=== PATIENT | female | born 2000 | race Caucasian/White ===

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

== ENCOUNTER 2024-04-06 19:53 | Inpatient (IN) ==
[2024-04-06 20:39] LABS: Appearance Urine Clear (Clear); Bacteria Urine Automated None Seen (None Seen); Bilirubin Urine 3+ (Negative); Blood Urine Negative (Negative); Cast Urine Automated 0-2 /lpf (0-2); Color Urine Dark Yellow; Glucose Urine UA Negative (Negative); Ketones Urine 1+ (Negative); Leukocyte Esterase Urine 1+ (Negative); Nitrite Urine Negative (Negative); Protein Urine Negative (Negative); RBC Urine Automated 0-2 /hpf (0-2); Specific Gravity Urine 1.018 (1.000-1.030); Urobilinogen Urine Negative (Negative); pH Urine 5.5 (4.5-7.5)
[2024-04-06 20:43] LABS: BUN Creatinine Ratio 12.5 (10-20); Calcium 8.7 mg/dl (8.6-10.3); Creatinine Clr Calc Pharmacy 132.8 ml/min; Potassium 3.5 mmol/L (3.5-5.1)
[2024-04-06 20:44] LABS: Basophils # (auto) 0.03 K/uL (0.00-0.20); Basophils % (auto) 0.4 %; Eosinophils # (auto) 0.09 K/uL (0.00-0.50); Eosinophils % (auto) 1.1 %; Hematocrit (blood only) 41.1 % (37.0-47.0); Hemoglobin 14.1 g/dl (12.0-16.0); Immature Granulocytes # (auto) 0.02 K/uL (0.01-0.20); Immature Granulocytes % (auto) 0.2 %; Lymphocytes # (auto) 0.86 K/uL (1.20-3.40); Lymphocytes % (auto) 10.6 %; Mean Corpuscular Hemoglobin 29.3 pg (25.0-34.0); Mean Corpuscular Hgb Conc 34.3 g/dL (32.0-36.0); Mean Corpuscular Volume 85.4 fL (80.0-100.0); Mean Platelet Volume 10.4 fL (9.4-12.4); Monocytes # (auto) 0.66 K/uL (0.11-0.59); Monocytes % (auto) 8.1 %; Neutrophils # (auto) 6.48 K/uL (1.40-6.50); Neutrophils % (auto) 79.6 %; Platelet Count 327 K/uL (130-400); RDW Coefficient of Variation 12.4 % (11.5-14.5); RDW Standard Deviation 38.8 fL (36.4-46.3); Red Blood Count 4.81 M/uL (4.20-5.40); White Blood Count 8.14 K/ul (4.8-10.8)
[2024-04-06 20:51] LABS: Pregnancy Test, Serum Negative (Negative)
[2024-04-06 21:00] LABS: Albumin Globulin Ratio 2.3 (0.9-2); Albumin Level 4.5 gm/dl (3.4-5.0); Total Protein 6.5 gm/dl (6.0-8.3)
[2024-04-06] MEDS ORDERED: HYDROmorphone INJ 0.5 MG/0.5 ML SYR IV PRN (21:39)
--- NOTE | 2024-04-06 21:47 | Emergency Department Note ---
Impression & Plan Acute gallstone pancreatitis, Acute upper abdominal pain, Vomiting, Elevated liver enzymes, Jaundice ED Provider Note NAME: ELA OLSON AGE: 23 SEX: F : 2000 ARRIVES VIA: Walk-In INFORMANT: [Patient][family] ED PROVIDER(S): [John Brown MD] CHIEF COMPLAINT: Abdominal pain HISTORY OF PRESENT ILLNESS: The patient is a 23-year-old female whose had about a week of upper abdominal pain, nausea. She has actually passed out a few times. She feels dehydrated. There has been no fever. No cough or respiratory complaints. The patient went to the [place] ED yesterday. She was told that her flu test was negative, her lab work was okay and the CT of the abdomen pelvis was unremarkable. The patient presents to our ER today complaining of continued symptoms. She states her urine is very dark in color. Of note, the patient has had a previous cholecystectomy. Some of her symptoms today feel similar to when she still had her gallbladder PMHx/PSHx/Social Hx: See Below PHYSICAL EXAM: GENERAL: Patient is in mild distress from pain, tearful HEENT: No acute trauma, normocephalic atraumatic, mucous membranes moist, no nasal congestion. Scleral icterus seen NECK: No stridor, no adenopathy, no meningismus, trachea is midline. LUNGS: Clear to auscultation bilaterally, no wheeze, no rhonchi, breath sounds equal. HEART: Without murmurs gallops or rubs, regular rate and rhythm. ABDOMEN: Soft, moderately tender in the epigastrium, no distention EXTREMITIES: No cyanosis, full range of motion of all the joints without pain or difficulty. NEUROLOGIC: Oriented x 3, no acute motor or sensory deficits, no focal weakness. SKIN: No jaundice, no diaphoresis. DIFFERENTIAL DIAGNOSIS: Biliary colic, pancreatitis, gastritis, bowel obstruction, UTI, viral illness, among others. EMERGENCY DEPARTMENT PROCEDURES: MEDICAL DECISION MAKING: There is no leukocytosis or concerning anemia. There is a normal platelet count. No renal failure or significant electrolyte abnormality. Liver enzymes were markedly elevated, the bilirubin was 5. Lipase was elevated at 6700. Urinalysis showed potential contamination, no obvious infection. Gallbladder ultrasound showed a dilated common bile duct. On exam, the patient was jaundiced and quite tender in the epigastrium. The patient was given IV Dilaudid for pain, IV Zofran for nausea, she received IV saline for hydration. She was given IV Zosyn as antibiotic coverage. She received IV Pepcid and IV Benadryl. The patient appears to have gallstone pancreatitis. She is jaundiced. She has markedly elevated liver enzymes. I did speak with the on-call GI physician. The patient is to be hospitalized on the medicine service to potentially undergo ERCP in the morning. Patient feels better with treatment provided in the ED. I spoke with her about her findings. I did speak with case management, the on-call hospitalist was consulted. Prior/Outside records/notes reviewed: None Imaging/x-ray results per my interpretation: Chronic Medical/Social conditions affecting care: None Care/Management discussed with: GI on-call-Dr. Estrada. Case management and the on-call hospitalist. Level of care consideration(s): After review of the information above and other included data: --I believe the patient requires escalation of care to admission DISPOSITION: Admission Past Med/Surg History Problem List (Updated 04/07/24 @ 14:21 by John Brown MD) Jaundice (Acute) Elevated liver enzymes (Acute) Vomiting (Acute) Acute upper abdominal pain (Acute) Acute gallstone pancreatitis (Acute) Pancreatitis Transaminitis Gall stone pancreatitis Multiple sclerosis Left ovarian cyst (Acute) Medical History (Updated 04/07/24 @ 14:21 by John Brown MD) Migraine Multiple sclerosis Surgical History [place] teeth extracted Family History Other Cancer Diabetes Heart disease Hypertension Seizure Social History Smoking Status: Never smoker Hx Alcohol Use: Yes Alcohol type: hard liquor Hx Substance Use: Yes Last Used Substance: Days (ago) Substance Use Type Other:: medical marijuana user Preferred Language: Citizen Of [place] Communication Ability: Effective Machine Hose Cutter Required: No Beliefs That Will Affect Care: None marital status: Single Current Living Situation: Alone current occupational status: employed Other Information That Helps Us Care for You: No Feels Safe at Home: Yes Safety Concerns: Feels Safe At This Time Assistive Devices: Glasses Allergies Allergies Allergy/AdvReac Type Severity Reaction Status Date / Time No Known Allergies Allergy Verified 04/08/18 17:23 Home Meds Home Medications Medication Instructions Recorded Confirmed albuterol sulfate 90 mcg/actuation 2 puff inhalation Q4H PRN 04/07/24 04/07/24 aerosol inhaler Shortness Of Breath Or Wheezing ocrelizumab 30 mg/mL intravenous 600 mg IV UD 04/07/24 04/07/24 solution (Ocrevus) pantoprazole 40 mg tablet,delayed 40 mg PO DAILY 04/07/24 04/07/24 release rizatriptan 10 mg disintegrating 10 mg PO DIRECTED 04/07/24 04/07/24 tablet semaglutide 0.25 mg or 0.5 mg (2 0.5 mg subcut WK 04/07/24 04/07/24 mg/3 mL) subcutaneous pen injector (Ozempic) Results & Data (ED) Vital Signs Vital Signs - 24 hr 04/06/24 19:59 04/07/24 00:08 Temperature 36.3 C L Temperature Source Temporal Artery Scan Pulse Rate 76 Pulse Rate [Finger] 62 Respiratory Rate 16 16 Respiratory Effort / Characteristics Non-Labored Spontaneous Non-Labored Spontaneous Respiratory Depth Normal Normal Respiratory Pattern Regular Blood Pressure 132/82 Blood Pressure [Right Arm] 128/76 Blood Pressure Mean 98 Blood Pressure Mean [Right Arm] 93 Pulse Oximetry 99 98 Oxygen Delivery Method Room Air Room Air Sepsis Recent Fever Within 48 Hours No Sepsis New/Unexplained Change in Mental Status No Sepsis Action Taken by Nursing No Action Required Home Medications Current Medication List: was personally reviewed by me Laboratory Data Attestation: I reviewed the patient's lab results. 04/07/24 05:34 04/07/24 05:34 Lab Results 04/06/24 Range/Units 20:10 WBC 8.14 (4.8-10.8) K/ul RBC 4.81 (4.20-5.40) M/uL Hgb 14.1 (12.0-16.0) g/dl Hct 41.1 (37.0-47.0) % MCV 85.4 (80.0-100.0) fL MCH 29.3 (25.0-34.0) pg MCHC 34.3 (32.0-36.0) g/dL RDW Std Deviation 38.8 (36.4-46.3) fL RDW Coeff of Sandeep 12.4 (11.5-14.5) % Plt Count 327 (130-400) K/uL MPV 10.4 (9.4-12.4) fL Immature Gran % (Auto) 0.2 % Neut % (Auto) 79.6 % Lymph % (Auto) 10.6 % Grady % (Auto) 8.1 % Eos % (Auto) 1.1 % Baso % (Auto) 0.4 % Neut # (Auto) 6.48 (1.40-6.50) K/uL Lymph # (Auto) 0.86 L (1.20-3.40) K/uL Grady # (Auto) 0.66 H (0.11-0.59) K/uL Eos # (Auto) 0.09 (0.00-0.50) K/uL Baso # (Auto) 0.03 (0.00-0.20) K/uL Immature Gran # (Auto) 0.02 (0.01-0.20) K/uL Sodium 140 (136-145) mmol/L Potassium 3.5 (3.5-5.1) mmol/L Chloride 107 (98-107) mmol/L Carbon Dioxide 28 (21-32) mmol/L Anion Gap 5 (3-11) BUN 10 (6-23) mg/dl Creatinine 0.80 (0.6-1.2) mg/dl Est Cr Clr Drug Dosing 132.8 ml/min eGFR 104.80 BUN/Creatinine Ratio 12.5 (10-20) Glucose 108 H (70-99(Fasting)) mg/dl Calcium 8.7 (8.6-10.3) mg/dl Total Bilirubin 5.0 H (0.2-1.0) mg/dl AST 485 H (13-39) U/L ALT 742 H (7-52) U/L Alkaline Phosphatase 288 H (34-104) U/L Total Protein 6.5 (6.0-8.3) gm/dl Albumin 4.5 (3.4-5.0) gm/dl Globulin 2.0 L (2.5-4.0) gm/dl Albumin/Globulin Ratio 2.3 H (0.9-2) Lipase 6762 H (11-82) U/L HCG, Qual Negative (Negative) Urine Color Dark Yellow Urine Appearance Clear (Clear) Urine pH 5.5 (4.5-7.5) Ur Specific [place] 1.018 (1.000-1.030) Urine Protein Negative (Negative) Urine Glucose (UA) Negative (Negative) Urine Ketones 1+ H (Negative) Urine Blood Negative (Negative) Urine Nitrite Negative (Negative) Urine Bilirubin 3+ H (Negative) Urine Urobilinogen Negative (Negative) Ur Leukocyte Esterase 1+ H (Negative) Urine WBC (Auto) 11-20 H (0-5) /hpf Urine RBC (Auto) 0-2 (0-2) /hpf U Hyaline Cast (Auto) 0-2 (0-2) /lpf U Epithel Cells (Auto) 3-5 H (0-2) /hpf Urine Bacteria (Auto) None Seen (None Seen) Administered Medications Hydromorphone HCl (Hydromorphone Inj 0.5 Mg/0.5 Ml Syr) 0.5 mg IV Q3H PRN PRN Reason: Severe Pain (Scale 7, 8, 9,10) Stop: 04/21/24 02:44 Last Admin: 04/07/24 03:14 Dose: 0.5 mg Documented By: PAMELA Sodium Chloride (Nss) 1,000 mls @ 200 mls/hr IV .Q5H ASHLEY Stop: 04/08/24 02:44 Last Admin: 04/07/24 14:14 Dose: 200 mls/hr Documented By: Infusion: 04/07/24 13:14 Dose: Infused Documented By: Admin: 04/07/24 08:14 Dose: 200 mls/hr Documented By: Infusion: 04/07/24 08:11 Dose: Infused Documented By: Admin: 04/07/24 03:11 Dose: 200 mls/hr Documented By: PAMELA Pantoprazole Sodium (Protonix) 40 mg in 10 mls @ 5 mls/min IV DAILY ASHLEY Stop: 05/07/24 08:59 Last Admin: 04/07/24 08:16 Dose: 5 mls/min Documented By: DELISA Piperacillin Sod/Tazobactam Sod (Zosyn) 4.5 gm in 100 mls @ 25 mls/hr IV Q8H ASHLEY; Protocol Stop: 04/17/24 03:59 Last Admin: 04/07/24 12:40 Dose: 25 mls/hr Documented By: Infusion: 04/07/24 08:14 Dose: Infused Documented By: Admin: 04/07/24 04:09 Dose: 25 mls/hr Documented By: PAMELA Ondansetron HCl (Ondansetron Inj 2 Mg/Ml 2 Ml Vial) 4 mg IV Q6H PRN PRN Reason: Nausea Stop: 05/07/24 02:44 Last Admin: 04/07/24 08:16 Dose: 4 mg Documented By: DELISA Discontinued Medications Diphenhydramine HCl (Diphenhydramine 50 Mg/Ml Vial) 12.5 mg IV NOW STA Stop: 04/06/24 21:40 Last Admin: 04/06/24 22:02 Dose: 12.5 mg Documented By: HECTOR Hydromorphone HCl (Hydromorphone Inj 0.5 Mg/0.5 Ml Syr) 0.5 mg IV NOW STA Stop: 04/06/24 21:40 Last Admin: 04/06/24 22:01 Dose: 0.5 mg Documented By: HECTOR Piperacillin Sod/Tazobactam Sod (Zosyn) 4.5 gm in 100 mls @ 200 mls/hr IV NOW ONE Stop: 04/06/24 22:08 Last Infusion: 04/07/24 00:00 Dose: Infused Documented By: Infusion: 04/06/24 23:30 Dose: 200 mls/hr Documented By: Infusion: 04/06/24 22:08 Dose: 0 mls/hr Documented By: Admin: 04/06/24 21:59 Dose: 200 mls/hr Documented By: HECTOR Famotidine (Pepcid 20mg Iv Push) 20 mg in 5 mls @ 2.5 mls/min IV NOW STA Stop: 04/06/24 21:40 Last Admin: 04/06/24 22:03 Dose: 2.5 mls/min Documented By: HECTOR Sodium Chloride (Nss) 1,000 mls @ 999 mls/hr IV .Q1H1M ONE Stop: 04/06/24 22:39 Last Infusion: 04/07/24 00:09 Dose: Infused Documented By: Admin: 04/06/24 22:00 Dose: 999 mls/hr Documented By: HECTOR Sodium Chloride (Nss) 1,000 mls @ 999 mls/hr IV .Q1H1M ONE Stop: 04/07/24 01:15 Last Infusion: 04/07/24 01:58 Dose: Infused Documented By: Admin: 04/07/24 00:56 Dose: 999 mls/hr Documented By: HECTOR Ondansetron HCl (Ondansetron Inj 2 Mg/Ml 2 Ml Vial) 4 mg IV NOW STA Stop: 04/06/24 21:40 Last Admin: 04/06/24 22:01 Dose: 4 mg Documented By: HECTOR Discharge Plan Visit Data Chief Complaint: Abdominal Pain Stated Complaint: ABD PAIN, VOMITING, ED Provider: John Brown Discharge Problem: Acute gallstone pancreatitis, Acute upper abdominal pain, Vomiting, Elevated liver enzymes, Jaundice Patient Disposition: Admitted As Inpatient Condition: Fair Discharge Instructions Interventions: ED Discharge Assessment Last Done: 04/07/24 02:01 Discharge Problem: Vomiting Qualifiers: Vomiting type: unspecified Nausea presence: with nausea Qualified Code(s): R 11.2 - Nausea with vomiting, unspecified
[2024-04-06] MEDS: PIPERACILLIN/TAZOBACTAM 4.5 GM/100 ML BAG IV ONE (21:59)
[2024-04-06] MEDS: SODIUM CHLORIDE 0.9% 1,000 ML IV ONE (22:00)
[2024-04-06] MEDS: ONDANSETRON INJ 2 MG/ML 2 ML VIAL IV STA (22:01)
[2024-04-06] MEDS: HYDROmorphone INJ 0.5 MG/0.5 ML SYR IV STA (22:01)
[2024-04-06] MEDS: diphenhydrAMINE 50 MG/ML VIAL IV STA (22:02)
[2024-04-06] MEDS: FAMOTIDINE 20MG IV PUSH 20 MG/5 ML SYR IV STA (22:03)
--- NOTE | 2024-04-06 23:53 | Ultrasound Report ---
Exam(s): US GALLBLADDER EXAM: US Abdomen Limited, Gallbladder CLINICAL HISTORY: Reason for exam: ned, jaundiced. TECHNIQUE: Real-time ultrasound of the right upper quadrant with image documentation. COMPARISON: No relevant prior studies available. FINDINGS: Liver: Liver measures 16.4 cm. Gallbladder: Cholecystectomy. Common bile duct: Dilated common bile duct measuring 1.1 cm. Pancreas: Unremarkable as visualized. Right kidney: Unremarkable. Right kidney measures 9.5 cm. No hydronephrosis. Other vasculature: Patent, normally directed portal vein. IMPRESSION: Dilated common bile duct measuring 1.1 cm. This could represent reservoir effect in the setting of cholecystectomy. However, if there is laboratory evidence of biliary obstruction, recommend MRCP. Electronically signed by: Elina Pinto M.D. 04/06/24 23:52 PM
--- OUTSIDE RECORDS SUMMARY | 2024-04-07 00:42 | External Medical Summary | Summary of Care ---
Author Name Unknown Organization [facility] Address [address] [place] [place] [address] Phone [phone] Care Team Providers Care Farm Equipment Mechanic Apprentice Name Role Phone Mary Lovell DO Primary Care Provider Reason for Visit * Reason Onset Date Comments Precert Approved 11/19/2023 Ozempic Encounter Details Date Type Department Care Team (Late st Contact Info) Description 11/19/2023 Telephone Nutrition & Weight Management, [facility] [address] [facility] [place] [address] Na Gutiérrez PA-C Precert Approved (Ozempic) Allergies No known active allergiesdocumented as of this encounter (statuses as of 02/18/2024) Medications MEDICAL INSTRUCTIONSIndic ations:Multiple sclerosis (HCC) Use as directed. Maintain access for on going med therapy may D/C after last dose 1 Each N/A 018 Active Ocrevus 300 MG/10ML Intravenous Solution (Ocrelizumab) Administer 600mg once every 6 months. 20 mL 2 021 Active Rizatriptan Benzoate 10 MG Oral Tablet Disintegrating Take 1 Tablet by mouth as needed for Migraine. May repeat in 2 hours if needed 10 Tablet 023 Active Clindamycin Phosphate 1 % External SolutionIndicatio ns:Folliculitis Apply topically to affected area 2 times a day. To affected area of skin. 60 mL 5 023 Active Continuation of patient use of medical marijuana is approved Use as directed. Active Ondansetron 4 MG Oral Tablet Disintegrating (Zofran) Place 1 Tablet on tongue daily as needed for Nausea. dissolve on tongue. 90 Tablet 3 023 Active Fluticasone Propionate 50 MCG/ACT Nasal Suspension (Flonase)Indicati ons:Sinus pressure Administer 2 Sprays into each nostril in the morning. 16 g 2 024 Active Additional Information Patient not taking.Reported on 01/05/2024 LORazepam 0.5 MG Oral Tablet (Ativan) Take 1 tablet by mouth 30 minutes before MRI. If needed, you can take an additional tablet right before your MRI. Do not drive on this medication. 2 Tablet Active Albuterol Sulfate HFA 108 (90 Base) MCG/ACT Inhalation Aerosol SolutionIndicatio ns:Bronchitis, complicated Inhale 2 Puffs by mouth every 4 hours as needed for Wheezing or Cough. 18 g 3 024 Active Budesonide 0.5 MG/2ML Inhalation Suspension (Pulmicort) As directed in nasal saline rinse twice a day 120 mL 12 024 Active Azelastine HCl 0.1 % Nasal Solution (Astelin) Administer 1 [place] into nostril in the morning and 1 [place] before bedtime. 30 mL 12 024 Active Additional Information Patient not taking.Reported on 01/05/2024 Vitamin D3 125 MCG (5000 UT) Oral Tablet Take 5,000 units (one tablet) by mouth twice daily x 12 weeks, then decrease to 5,000 units (one tablet) once daily thereafter 168 Tablet 024 Active Vitamin D3 50 MCG (2000 UT) Oral Capsule Take 2 Capsules by mouth in the morning. After completing 12 weeks of the 5000 units twice daily. 60 Capsule 5 024 Active Pantoprazole Sodium 40 MG Oral Tablet Delayed Release (Protonix) Take 1 Tablet by mouth in the morning. 30 minutes before the first meal of the day. Do not crush, split or chew the tablet. 90 Tablet 1 024 2023 Discontinued(R efill) Ozempic (0.25 or 0.5 MG/DOSE) 2 MG/3ML Solution Pen-injector (Semaglutide(0.25 or 0.5MG/DOS)) Inject 0.5 mg under the skin once a week. 3 mL 2 11/27/19 11:59 AM EDT 024 2023 Discontinued Hospital, Clinic, or Other Facility Administered Medication Ordered Dose Route Frequency Start Date End Date Status Albuterol Sulfate (Proventil) (2.5 MG/3ML) 0.083% inhalation solution 2.5 mgIndications:Sinus pressure 2.5 mg NEBULIZER ONCE PRN 04/24/2023 04/23/2024 Active documented as of this encounter (statuses as of 02/18/2024) Active Problems Problem Noted Date Diagnosed Date Wheezing 04/08/2023 Chronic frontal sinusitis 04/08/2023 Dermoid cyst of right ovary 04/12/2021 Migraine with aura and witho ut status migrainosus, not intractable 08/03/2018 Obesity, Class II, BMI 35-39.9, isolated (see ac tual BMI) 02/07/2017 Multiple sclerosis, relapsing-remitting 02/08/20 17 Vitamin D deficiency 02/03/2017 documented as of this encounter (statuses as of 02/18/2024) Resolved Problems Problem Noted Date Diagnosed Date Resolved Date Food insecurity 02/26/2021 09/26/2022 Overview: Per [facility] Protocol Sudden visual loss of left eye 01/28/2017 02/07/2017 Obesity, pediatric, BMI 95th to 98th percentile for age 0407/07/2014 02/07/2017 Depression 07/07/2014 02/07/2017 Deliberate self-cutting 07/07/201401/16 documented as of this encounter (statuses as of 02/18/2024) Immunizations Name Administration Dates Next Due DTaP Dipth/Tet/Acell Pertussis (Infanrix), Peds 04/07/2003,09/13/1999 HPV Vaccine, 4-Valent 07/07/2014,07/02/2011,12/16 Hepatitis A, Ped/Adol., 18 y ear and below, 2-Dose 07/07/2014,03/31/2007 Hepatitis B, 20+ yrs 02/03/2019 MMR - Measles/Mumps/Rubella Vaccine 04/07/2003 Meningococcal Conjugate Vacc ine (Menactra/Menveo) 07/10/2015,01/04/2011 Seasonal Influenza Vac., MDV , IM, 0.5 mL (Fluzone) 01/01/2014,01/28/2013,02/24/2012,01/30,01/03/2009 Seasonal Influenza, PF, 6 M & above, IM , (FluLaval or Fluzone) 01/19/2020,02/03/2019,01/05/2018,01/27 Seasonal Influenza, Quadriva lent, No Preserve, IM 01/31/2015 TDAP (age 10 and older)(Boostrix) 07/10/2015 TDAP, Age 7 and older, IM (Adacel) 01/04/2011 Varicella Vaccine (Chicken Pox) 01/04/2011 documented as of this encounter Social History Tobacco Use Types Packs/Day Years Used Date Smoking Tobacco: Never Smokeless Tobacco: Never Alcohol Use Standard Drinks/Week Comments Not Currently 0 (1 standard drink = 0.6 oz pur e alcohol) occasionally PHQ-2 Answer Date Recorded PHQ-2 Score 0 02/03/2019 Hunger Vital Sign Answer Date Recorded Within the past 12 months, y ou worried that your food would run out before you got the money to buy more. Patient declined Within the past 12 months, t he food you bought just didn't last and you didn't have money to get more. Patient declined 07/2022 Childcare Answer Date Recorded Do you feel overwhelmed with taking care of a child, family member or friend? No 09/18/2022 Does your family need help f inding childcare? (Household - for ages 0-17 years) Not on file 09/18/2022 Clothing Answer Date Recorded Have you been unable to get clothing when it was really needed? No 09/18/2022 Is your family able to get c lothes or diapers when needed? (Household - for ages 0-17 years) Not on file 09/18/2022 Personal Safety Answer Date Recorded Do you feel unsafe or have concerns for your saf ety? No 09/18/2022 Do you have concerns for you r family's safety? (Household - for ages 0-17 years) Not on file 09/18/2022 Utilities Answer Date Recorded Do you have trouble paying y our heating, water, or electric bill? No 09/18/2022 Is your family able to pay t he heat, water, or electric bill? (Household - for ages 0-17 years) Not on file 09/18/2022 Does your family have access to good internet? (Household - for ages 0-17 years) Not on file 09/18/2022 Employment Status Answer Date Recorded Are you unemployed or without regular income? No 09/18/2022 Does the household have a re gular source of income? (Household - for ages 0-17 years) Not on file 09/18/2022 Social Connections Answer Date Recorded How often do you feel lonely or isolated from those around you? Sometimes 09/18/2022 Financial Resource Strain Answer Date R ecorded Do you have any trouble payi ng for your medications, or do you think you might in the future? No 09/18/2022 Does your family have troubl e paying for medicine? (Household - for ages 0-17 years) Not on file 09/18/2022 Transportation Needs Answer Date Record ed READ ONLY Do you have troubl e getting a ride to medical visits or work? Never True 09/18/2022 Does your family have a hard time getting a ride to doctors visits? (Household - for ages 0-17 years) Not on file 09/18/2022 Has lack of transportation k ept you from medical appointments, meetings, work, or from getting things needed for daily living? Check all that apply. (Adult - for ages 18 years and over) Not on file 09/18/2022 Do you (or your family) have trouble finding or paying for a ride (transportation)? (Household - for ages 0-17 years) Not on file 09/18/2022 Housing Stability Answer Date Recorded Do you currently live in a s helter or have no steady place to sleep at night? No 09/18/2022 READ ONLY Do you think you a re at risk of becoming homeless? No 09/18/2022 Does your family worry about paying for your home or becoming homeless? (Household - for ages 0-17 years) Not on file 0 09/18/2022 Are you homeless or worried that you might be in the future? (Adult - for ages 18 years and over) Not on file Are you (or your family) lefty eless or worried that you might be in the future? (Household - for ages 0-17 years) Not on file Food Insecurity Answer Date Recorded Do you need food for this week? No 09/18/2022 Are you able to get enough f ood for your family? (Household - for ages 0-17 years) Not on file 09/18/2022 Does your family need food t his week? (Household - for ages 0-17 years) Not on file 09/18/2022 Do you always have enough fo od for your family? 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 - Note: Please see scanned fax from insurance under the Media Tab. Approved/Denied: approved Drug Name and Formulation: Ozempic (0.25 or 0.5 MG/DOSE) 2 MG/3ML Solution Pen- injector (Semaglutide(0.25 or 0.5MG/DOS)) How Prescribed(directions/sig): WEEKLY Qty and Day Supply: 06/11 Did you receive insurance information from outside the chart? No, received insurance information within the chart Valid auth start date: 11/20/2023 Valid auth end date: 05/19/2024 Rx Insurance Info: [facility] [place] Reference #: Sharon Post Medication Mimeographer III [facility] ([facility]) P: [phone] F: [phone] 11/21/23,8:34 AM . Type Date User Summary Attachment Precert 11/20/2023 8:58 AM Sharon Post OSA [facility] Authorization Submission - Note: [facility] Authorization Submission Submission Information: Medication: OZEMPIC 0.25-0.5 MG/DOSE PEN Portal used: [email or web address] Insurance: [facility] Authorization #/Liao: [id number] * Telephone Encounter - Flip Cantu LPN - 11/19/2023 2:48 PM EDT Please Start prior authorization for Ozempic (0.25 or 0.5 MG/DOSE) 2 MG/3ML Solution Pen-injector (Semaglutide(0.25 or 0.5MG/DOS)) Diagnosis Class 1 obesity due to excess calories without serious comorbidity with body mass index (BMI) of 34.0 to 34.9 in adult E66.09, Z68.34 Abnormal Weight Gain R63.5 Patient qualifies for Weight loss medication due to BMI >30 or BMI >27 with obesity related comorbidity BMI Readings from Last 2 Encounters: 10/27/23 32.88 kg/m 09/03/23 34.02 kg/m Wt Readings from Last 2 Encounters: 10/27/23 103 kg (227 lb 1.6 oz) 09/03/23 106.6 kg (235 lb) Na Gutiérrez PA-C documented in this encounter Plan of Treatment Upcoming Encounters Date Type Department Care Team (Late st Contact Info) Description 03/16/2024 2:00 PM EST Telemedicine Otolaryngology [facility] [address] [place] [address] Mariah Mandel MD [address] [place] [address] 04/01/2024 12:40 PM EST Office Visit Nutrition & Weight Management, [facility] [address] [place] [address] Nae Cristina PA-C [address] [place] [address] 04/29/2024 3:00 PM EST Telemedicine Neurology [address] [place] [phone] Quyen Palma PA-C [address] [place] [address] 04/30/2024 9:00 AM EST Laboratory Laboratory [facility] [address] [facility] [place] [phone] [place], Lab [facility] [address] [facility] [place] [address] 05/03/2024 7:00 AM EST Pharmacy Neurology [address] [place] [phone] Brittny, Pharmacist Neurology [address] [place] [address] 06/25/2024 9:30 AM EDT Hem/Onc Treatment Hematology/Oncology Treatment, [place] [address] [facility] [address] [place] [address] 06/29/2024 8:30 AM EDT Office Visit Family Medicine [address] [phone] Mary Lovell[address] [place] [address] 12/06/2024 2:20 PM EDT Office Visit Neu[facility] [place] [address] [place] [address] Thelma Villatoro MD [address] [facility] [place] [address] Health Maintenance Due Date Last Done Comments COVID-19 Vaccine (#1) 2003 Pneumococcal Vaccine: Pediat rics (0 to 5 Years) and At-Risk Patients (6 to 64 Years) (1 of 2 - PCV) 2004 Depression Screening 02/04/2020 02/03/2019 Influenza Vaccine (FLU shot) (#1) 2023 01/19/2020, 02/03/2019, 01/05/2018, Additional history exists Pap Smear 05/09/2024 05/09/2021 DTap/Tdap Vaccines (8 - Td o r Tdap) 07/09/2025 07/10/2015, 01/04/2011, 04/07/2003, Additional history exists HPV (Gardasil) Vaccine Completed 5, 07/02/2011, 01/04/2011 MENINGOCOCCAL (MENACTRA/MENVEO) Completed 07/10/2015, 01/04/2011, 01/04/2011 Hepatitis B Vaccine Completed 02/03/2019, 03/02/1999, 1998, Additional history exists Gonorrhea / Chlamydia Screen Discontinued 04/12/2021, 01/13/2018 documented as of this encounter Medical Devices Not on filedocumented as of this encounter Advance Directives * Full Code (Latest Code Status on File) Date Activated Date Inactivated Comments 10/13/2020 10:06 AM 10/13/2020 9:06 PM This order reflects the patients wishes and were consensually agreed upon. Question Answer Comments Discussion of Advance Directives occurred with: Not Discussed Care Teams Farm Equipment Mechanic Apprentice Relationship Specialty Start Date End Date Mary Lovell DO [address] [place] [address] [place] [address] PCP - General Internal Medicine 01/28/17 documented as of this encounter
--- OUTSIDE RECORDS SUMMARY | 2024-04-07 00:42 | External Medical Summary | Summary of Care ---
Author Name Unknown Organization [facility] Address [address] [facility] [place] [address] Phone [phone] Care Team Providers Care Pressurization Mechanic Name Role Phone LovellMary tavera Primary Care Provider [phone] Reason for Visit * Reason Comments Dosage Adjustment Via Phone (anticoag Cl inic) Encounter Details Date Type Department Care Team (Late st Contact Info) Description 03/22/2024 3:40 PM EST Telemedicine Endocrinology [address] [place] [phone] Brittny, Pharmacist Endocrinology [address] [place] [address] Abnormal weight gain* Allergies No known active allergiesdocumented as of this encounter (statuses as of 03/22/2024) Medications MEDICAL INSTRUCTIONSIndica tions:Multiple sclerosis (HCC) Use as directed. Maintain access for on going med therapy may D/C after last dose 1 Each N/A 10/28/19 18 Active Ocrevus 300 MG/10ML Intravenous Solution (Ocrelizumab) Administer 600mg once every 6 months. 20 mL 2 02/14/20 21 Active Rizatriptan Benzoate 10 MG Oral Tablet Disintegrating Take 1 Tablet by mouth as needed for Migraine. May repeat in 2 hours if needed 10 Tablet 05/13/19 23 Active Clindamycin Phosphate 1 % External SolutionIndication s:Folliculitis Apply topically to affected area 2 times a day. To affected area of skin. 60 mL 5 09/20/19 23 Active Continuation of patient use of medical marijuana is approved Use as directed. Active Ondansetron 4 MG Oral Tablet Disintegrating (Zofran) Place 1 Tablet on tongue daily as needed for Nausea. dissolve on tongue. 90 Tablet 3 03/11/20 23 Active Fluticasone Propionate 50 MCG/ACT Nasal Suspension (Flonase)Indicatio ns:Sinus pressure Administer 2 Sprays into each nostril in the morning. 16 g 2 04/24/19 24 Active Additional Information Patient not taking.Reported on 01/05/2024 LORazepam 0.5 MG Oral Tablet (Ativan) Take 1 tablet by mouth 30 minutes before MRI. If needed, you can take an additional tablet right before your MRI. Do not drive on this medication. 2 Tablet 04/28/19 24 Active Albuterol Sulfate HFA 108 (90 Base) MCG/ACT Inhalation Aerosol SolutionIndication s:Bronchitis, complicated Inhale 2 Puffs by mouth every 4 hours as needed for Wheezing or Cough. 18 g 3 08/05/19 24 Active Budesonide 0.5 MG/2ML Inhalation Suspension (Pulmicort) As directed in nasal saline rinse twice a day 120 mL 12 08/22/19 24 Active Azelastine HCl 0.1 % Nasal Solution (Astelin) Administer 1 [place] into nostril in the morning and 1 [place] before bedtime. 30 mL 12 08/22/19 24 Active Additional Information Patient not taking.Reported on 01/05/2024 Vitamin D3 125 MCG (5000 UT) Oral Tablet Take 5,000 units (one tablet) by mouth twice daily x 12 weeks, then decrease to 5,000 units (one tablet) once daily thereafter 168 Tablet 10/31/19 24 Active Vitamin D3 50 MCG (2000 UT) Oral Capsule Take 2 Capsules by mouth in the morning. After completing 12 weeks of the 5000 units twice daily. 60 Capsule 5 10/31/19 24 Active dexAMETHasone 0.1 % Ophthalmic Suspension 4 drops in saline rinse twice a day 5 mL 3 11/24/19 24 Active Semaglutide(0.25 or 0.5MG/DOS) 2 MG/3ML Solution Pen-injector ([place]) Inject 0.5 mg under the skin once a week. 9 mL 1 03/22/2024 8:38 AM EST 12/09/19 24 Active Pantoprazole Sodium 40 MG Oral Tablet Delayed Release (Protonix) Take 1 Tablet by mouth in the morning and 1 Tablet in the evening. 30 minutes before the first meal of the day. Do not crush, split or chew the tablet. 180 Tablet 01/14/20 Active Hospital, Clinic, or Other Facility Administered Medication Ordered Dose Route Frequency Start Date End Date Status Albuterol Sulfate (Proventil) (2.5 MG/3ML) 0.083% inhalation solution 2.5 mgIndications:Sinus pressure 2.5 mg NEBULIZER ONCE PRN 04/24/2023 04/23/2024 Active documented as of this encounter (statuses as of 03/22/2024) Active Problems Problem Noted Date Diagnosed Date Wheezing 04/08/2023 Chronic frontal sinusitis 04/08/2023 Dermoid cyst of right ovary 04/12/2021 Migraine with aura and witho ut status migrainosus, not intractable 08/03/2018 Obesity, Class II, BMI 35-39.9, isolated (see ac tual BMI) 02/07/2017 Multiple sclerosis, relapsing-remitting 02/08/20 17 Vitamin D deficiency 02/03/2017 documented as of this encounter (statuses as of 03/22/2024) Resolved Problems Problem Noted Date Diagnosed Date Resolved Date Food insecurity 02/26/2021 09/26/2022 Overview: Per [facility] Protocol Sudden visual loss of left eye 01/28/2017 02/07/2017 Obesity, pediatric, BMI 95th to 98th percentile for age 0407/07/2014 02/07/2017 Depression 07/07/2014 02/07/2017 Deliberate self-cutting 07/07/201401/16 documented as of this encounter (statuses as of 03/22/2024) Immunizations Name Administration Dates Next Due DTaP [...] 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 Patient was then informed that this was a telephone call only visit. The patient agreed to participate Visit Disposition: Status check Duration: 02 minutes Name: Fidel Baumann Diagnosis: Abnormal weight gain Current GLP1 therapy: Ozempic 0.5 mg weekly OBJECTIVE Estimated body mass index is 34.53 kg/m as calculated from the following: Height as of 01/05/24: 1.727 m (5' 8"). Weight as of 10/27/23: 103 kg (227 lb 1.6 oz). BP Readings from Last 3 Encounters: 12/26/23 110/79 10/27/23 98/62 06/27/23 108/71 Hemoglobin AIC Results: Lab Results Component Value Date/Time HEMOGLOBIN A1C, DBS - [facility] 5.1 01/14/2024 02:44 PM No results found for: "MICROALBUMIN" MEDICATION USE ASSESSMENT Patient is adherent to current prescribed dose of GLP1 therapy? Yes, patient taking as prescribed Allergic / Local Reactions Reported: No Side Effects Reported: No side effects, tolerating well PLAN The patient was educated on when to contact provider with change of symptoms or tolerability to medication. Continue medication as prescribed. Carina Terry [facility] Clinical Pharmacist Medication Therapy Disease Management 03/22/2024,3:42 PM documented in this encounter Plan of Treatment Upcoming Encounters Date Type Department Care Team (Late st Contact Info) Description 04/01/2024 12:40 PM EST Office Visit Nutrition & Weight Management, [facility] [place] [address] Nae Cristina PA-C [address] [facility] [place] [address] 04/29/2024 3:00 PM EST Telemedicine Neurology [address] [place] [phone] Quyen Plama PA-C [address] [place] [phone] 04/30/2024 9:00 AM EST Laboratory Laboratory [facility] [address] [place] [phone] [place], [address] [place] [address] 05/03/2024 7:00 AM EST Pharmacy Neurology [address] [place] [phone] Brittny, Pharmacist Neurology [address] [place], [place] [phone] 05/14/2024 11:30 AM EST Telemedicine Otolaryngology [facility] [address] [place] [address] Mariah Mandel MD [address] [place] [address] 06/25/2024 9:30 AM EDT Hem/Onc Treatment Hematology/Oncology Treatment, [place] [address] [place] [phone] 06/29/2024 8:30 AM EDT Office Visit Family Medicine [address] [place] [phone] [address] [place] [address] 12/06/2024 2:20 PM EDT Office Visit [facility] [address] Thelma Villatoro MD [address] [place], [place] [phone] Health Maintenance Due Date Last Done Comments COVID-19 Vaccine (#1) 2003 Pneumococcal Vaccine: Pediat rics (0 to 5 Years) and At-Risk Patients (6 to 18 Years and 19+ Years) (1 of 2 - PCV) 2017 Depression Screening 02/04/2020 02/03/2019 Influenza Vaccine (FLU [...] Not on filedocumented as of this encounter Visit Diagnoses Diagnosis Abnormal weight gain- Primary documented in this encounter Advance Directives * Full Code (Latest Code Status on File) Date Activated Date Inactivated Comments 10/13/2020 10:06 AM 10/13/2020 9:06 PM This order reflects the patients wishes and were consensually agreed upon. Question Answer Comments Discussion of Advance Directives occurred with: Not Discussed Care Teams Pressurization Mechanic Relationship Specialty Start Date End Date Mary Lovell DO [address] [place] [address] [place] [phone] PCP - General Internal Medicine 01/28/17 documented as of this encounter
--- OUTSIDE RECORDS SUMMARY | 2024-04-07 00:42 | External Medical Summary | Summary of Care ---
Author Name Unknown Organization [facility] Address [address] [place] [address] Phone [phone] Care Team Providers Care [employer] Liaison Officer Name Role Phone Mary Lovell DO Primary Care Provider Encounter Details Date Type Department Care Team (Late st Contact Info) Description 04/02/2024 Orders Only Family Medicine [address] [place] [phone] [address] Lovell [address] [place] [address] Allergies No known active allergiesdocumented as of this encounter (statuses as of 04/02/2024) Medications MEDICAL INSTRUCTIONSIndica tions:Multiple sclerosis (HCC) Use [...] 0.1 % Nasal Solution (Astelin) Administer 1 [place] into nostril in the morning and 1 [place] before bedtime. 30 mL 12 08/22/19 24 [...] day 5 mL 3 11/24/19 24 Active Pantoprazole Sodium 40 MG Oral Tablet Delayed Release (Protonix) Take 1 Tablet by mouth in the morning and 1 Tablet in the evening. 30 minutes before the first meal of the day. Do not crush, split or chew the tablet. 180 Tablet 01/14/20 24 Active Semaglutide(0.25 or 0.5MG/DOS) 2 MG/3ML Solution Pen-injector (Ozempic) Inject 0.5 mg under the skin once a week. 3 mL 03/23/19 Active Hospital, Clinic, or Other Facility Administered Medication Ordered Dose Route Frequency Start Date End Date Status Albuterol Sulfate (Proventil) (2.5 MG/3ML) 0.083% inhalation solution 2.5 mgIndications:Sinus pressure 2.5 mg NEBULIZER ONCE PRN 04/24/2023 04/23/2024 Active documented as of this encounter (statuses as of 04/02/2024) Active Problems Problem Noted Date Diagnosed Date Wheezing 04/08/2023 Chronic frontal sinusitis 04/08/2023 Dermoid cyst of right ovary 04/12/2021 Migraine with aura and witho ut status migrainosus, not intractable 08/03/2018 Obesity, Class II, BMI 35-39.9, isolated (see ac tual BMI) 02/07/2017 Multiple sclerosis, relapsing-remitting 02/08/20 Vitamin D deficiency 02/03/2017 documented as of this encounter (statuses as of 04/02/2024) Resolved Problems Problem Noted Date Diagnosed Date Resolved Date Food insecurity 02/26/2021 09/26/2022 Overview: Per [facility] Protocol Sudden visual loss of left eye 01/28/2017 02/07/2017 Obesity, pediatric, BMI 95th to 98th percentile for age 0407/07/2014 02/07/2017 Depression 07/07/2014 02/07/2017 Deliberate self-cutting 07/07/201401/16 documented as of this encounter (statuses as of 04/02/2024) Immunizations Name Administration Dates Next Due DTaP [...] 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 file Not on file documented as of this encounter Plan of Treatment Upcoming Encounters Date Type Department Care Team (Late st Contact Info) Description 04/27/2024 1:00 PM EST Telemedicine Neurology [address] [place] [phone] Quyen Palma PA-C [address] [place] [phone] 04/30/2024 9:00 AM EST Laboratory Laboratory Scenery [place] [place] [address] [place] [phone] [facility] [address] [place] [address] 05/03/2024 7:00 AM EST Pharmacy Neurology [address] [place] [phone] Brittny, Pharmacist Neurology [address] [place] [address] 05/14/2024 11:30 AM EST Telemedicine Otolaryngology [facility] [address] [place] [address] Mariah Mandel MD [address] [place] [address] 06/25/2024 9:30 AM EDT Hem/Onc Treatment Hematology/Oncology Treatment, [place] 200 [place] [phone] 06/29/2024 8:30 AM EDT Office Visit Family Medicine [address] [phone] [address] [place] [address] 12/06/2024 2:20 PM EDT Office Visit Neurology [facility] 200 [place] [address] [facility] [address] [place], [place] [phone] Pending Results Name Type Priority Associated Diagnoses Date /Time PAP SMEAR, OUTSIDE PROCEDURE Lab Routine 03/29/2024 Health Maintenance Due Date Last Done Comments COVID-19 Vaccine (#1) 2003 Pneumococcal Vaccine: Pediat rics (0 to 5 Years) and At-Risk Patients (6 to 18 Years and 19+ Years) (1 of 2 - PCV) 2017 Depression Screening 02/04/2020 02/03/2019 Influenza Vaccine (FLU shot) (#1) 2023 01/19/2020, 02/03/2019, 01/05/2018, Additional history exists DTap/Tdap Vaccines (8 - Td o r Tdap) 07/09/2025 07/10/2015, 01/04/2011, 04/07/2003, Additional history exists Pap Smear 03/29/2027 05/09/2021 HPV (Gardasil) Vaccine Completed 5, 07/02/2011, 01/04/2011 [...] Directives occurred with: Not Discussed Care Teams [employer] Liaison Officer Relationship Specialty Start Date End Date Mary Lovell DO [address] [place] [address] [place] [address] PCP - General Internal Medicine 01/28/17 documented as of this encounter
--- OUTSIDE RECORDS SUMMARY | 2024-04-07 00:42 | External Medical Summary | Summary of Care ---
Author Name Unknown Organization [facility] Address [address] [place] [address] Phone [phone] Care Team Providers Care Emr Trainer Name Role Phone Mary Lovell Primary Care Provider Encounter Details Date Type Department Care Team (Late st Contact Info) Description 03/29/2024 Result Scan Unspecified Department <No scans attached> Allergies No known active allergiesdocumented as of this encounter (statuses as of 04/01/2024) Medications MEDICAL INSTRUCTIONSIndica tions:Multiple sclerosis (HCC) Use [...] 0.1 % Nasal Solution (Astelin) Administer 1 [place] into nostril in the morning and 1 [place] before bedtime. 30 mL 12 08/22/19 24 [...] skin once a week. 3 mL 03/23/19 25 Active Hospital, Clinic, or Other Facility Administered Medication Ordered Dose Route Frequency Start Date End Date Status Albuterol Sulfate (Proventil) (2.5 MG/3ML) 0.083% inhalation solution 2.5 mgIndications:Sinus pressure 2.5 mg NEBULIZER ONCE PRN 04/24/2023 04/23/2024 Active documented as of this encounter (statuses as of 04/01/2024) Active Problems Problem Noted Date Diagnosed Date Wheezing 04/08/2023 Chronic frontal sinusitis 04/08/2023 Dermoid cyst of right ovary 04/12/2021 Migraine with aura and witho ut status migrainosus, not intractable 08/03/2018 Obesity, Class II, BMI 35-39.9, isolated (see ac tual BMI) 02/07/2017 Multiple sclerosis, relapsing-remitting 02/08/20 17 Vitamin D deficiency 02/03/2017 documented as of this encounter (statuses as of 04/01/2024) Resolved Problems Problem Noted Date Diagnosed Date Resolved Date Food insecurity 02/26/2021 09/26/2022 Overview: Per [facility] Protocol Sudden visual loss of left eye 01/28/2017 02/07/2017 Obesity, pediatric, BMI 95th to 98th percentile for age 0407/07/2014 02/07/2017 Depression 07/07/2014 02/07/2017 Deliberate self-cutting 07/07/201401/16 documented as of this encounter (statuses as of 04/01/2024) Immunizations Name Administration Dates Next Due DTaP [...] 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 Not on file documented as of this encounter Plan of Treatment Upcoming Encounters Date Type Department Care Team (Late st Contact Info) Description 04/01/2024 1:00 PM EST PulmDiagnostic Sleep Lab [facility] [address] [address] [facility] [address] [place] [address] 04/27/2024 1:00 PM EST Telemedicine Neurology [address] [place] [phone] Quyen Palma PA-C [address] [place] [address] 04/30/2024 9:00 AM EST Laboratory Laboratory Scenery [place] [address] [place] [phone] [place], Lab Scenery [address] [place] [address] 05/03/2024 7:00 AM EST Pharmacy Neurology [address] [place] [phone] Brittny Pharmacist Neurology [address] [place] [address] 05/14/2024 11:30 AM EST Telemedicine Otolaryngology [facility] [address] [place] [address] Mariah Mandel MD [address] [place] [address] 06/25/2024 9:30 AM EDT Hem/Onc Treatment Hematology/Oncology Treatment, [place] 200 [place] [place] [phone] 06/29/2024 8:30 AM EDT Office Visit Family Medicine [address] [phone] [address] [place] [address] 12/06/2024 2:20 PM EDT Office Visit Neurology [facility] [address] [facility] [address] [place] [address] Health Maintenance Due Date Last Done [...] Not on filedocumented as of this encounter Procedures Procedure Name Priority Date/Time Associated Diagnosis Comments OUTSIDE LAB RESULTS 03/29/2024 documented in this encounter Results * OUTSIDE LAB RESULTS (03/29/2024) 03/29/2024 us No Physician Data Unknown LABORATORY Final Result documented in this encounter Advance Directives * Full Code (Latest Code Status on File) Date Activated Date Inactivated Comments 10/13/2020 10:06 AM 10/13/2020 9:06 PM This order reflects the patients wishes and were consensually agreed upon. Question Answer Comments Discussion of Advance Directives occurred with: Not Discussed Care Teams Emr Trainer Relationship Specialty Start Date End Date Mary Lovell DO [address] [place] [address] [place] [phone] PCP - General Internal Medicine 01/28/17 documented as of this encounter
--- OUTSIDE RECORDS SUMMARY | 2024-04-07 00:42 | External Medical Summary | Summary of Care ---
Author Name Unknown Organization [facility] Address [address] [facility] [address] Phone [phone] Care Team Providers Care Picker Tender Name Role Phone Mary Lovell Primary Care Provider [phone] Reason for Visit * Reason Onset Date Comments Medication Refill 03/22/2024 Encounter Details Date Type Department Care Team (Late st Contact Info) Description 03/22/2024 Refill Endocrinology Eric Gallegos, [place] [address] [place] [address] Na Gutiérrez PA-C Allergies No known active allergiesdocumented as of this encounter (statuses as of 03/23/2024) Medications MEDICAL INSTRUCTIONSIndica tions:Multiple sclerosis (HCC) Use [...] 0.1 % Nasal Solution (Astelin) Administer 1 [place] into nostril in the morning and 1 [place] before bedtime. 30 mL 12 08/22/19 24 [...] a week. 3 mL 03/23/19 25 Active Semaglutide(0.25 or 0.5MG/DOS) 2 MG/3ML Solution Pen-injector (Ozempic) Inject 0.5 mg under the skin once a week. 9 mL 1 5 8:38 AM EST 12/09/19 24 025 Discontin ued(Refil l) Hospital, Clinic, or Other Facility Administered Medication Ordered Dose Route Frequency Start Date End Date Status Albuterol Sulfate (Proventil) (2.5 MG/3ML) 0.083% inhalation solution 2.5 mgIndications:Sinus pressure 2.5 mg NEBULIZER ONCE PRN 04/24/2023 04/23/2024 Active documented as of this encounter (statuses as of 03/23/2024) Active Problems Problem Noted Date Diagnosed Date Wheezing 04/08/2023 Chronic frontal sinusitis 04/08/2023 Dermoid cyst of right ovary 04/12/2021 Migraine with aura and witho ut status migrainosus, not intractable 08/03/2018 Obesity, Class II, BMI 35-39.9, isolated (see ac tual BMI) 02/07/2017 Multiple sclerosis, relapsing-remitting 02/08/20 17 Vitamin D deficiency 02/03/2017 documented as of this encounter (statuses as of 03/23/2024) Resolved Problems Problem Noted Date Diagnosed Date Resolved Date Food insecurity 02/26/2021 09/26/2022 Overview: Per [facility] Protocol Sudden visual loss of left eye 01/28/2017 02/07/2017 Obesity, pediatric, BMI 95th to 98th percentile for age 0407/07/2014 02/07/2017 Depression 07/07/2014 02/07/2017 Deliberate self-cutting 07/07/201401/16 documented as of this encounter (statuses as of 03/23/2024) Immunizations Name Administration Dates Next Due DTaP [...] 09/18/2022 Does the household have a re lar source of income? 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 Authorizing Provider: NAE CRISTINA * Telephone Encounter - Carina Terry [facility] - 03/22/2024 3:43 PM EST Patient previously established with Na Gutiérrez PA-C. Upcoming visit scheduled with Nae Cristina PA-C Pending script. Please approve if agreeable to continuing therapy. Carina Terry RP, PharmD, BCACP Ambulatory Clinical Pharmacist 03/22/24,3:43 PM documented in this encounter Plan of Treatment Upcoming Encounters Date Type Department Care Team (Late st Contact Info) Description 04/01/2024 12:40 PM EST Office Visit Nutrition & Weight Management, [facility] [address] [facility] [place] [address] Nae Cristina PA-C [address] [facility] [place] [address] 04/29/2024 3:00 PM EST Telemedicine Neurology [address] [place] [phone] Quyen Palma PA-C [address] [place] [facility] [phone] 04/30/2024 9:00 AM EST Laboratory Laboratory Scenery [facility] [address] [place] [phone] [place], Lab Scenery [address] [place] [address] 05/03/2024 7:00 AM EST Pharmacy Neurology [address] [place] [phone] Brittny Pharmacist Neurology [address] [facility] [place] [address] 05/14/2024 11:30 AM EST Telemedicine Otolaryngology [facility] [address] [employer] [facility] [place] [address] Mariah Mandel MD [address] [place] [address] 06/25/2024 9:30 AM EDT Hem/Onc Treatment Hematology/Oncology Treatment, [place] 200 [place] [phone] 06/29/2024 8:30 AM EDT Office Visit Family Medicine [address] [phone] Mary Lovell[address] [place] [address] 12/06/2024 2:20 PM EDT Office Visit Neurology [facility] 200 [facility] [address] Thelma Villatoro MD [address] [place] [address] Health Maintenance Due Date Last [...] Directives occurred with: Not Discussed Care Teams Picker Tender Relationship Specialty Start Date End Date Mary Lovell DO [address] [place] [address] [place] [address] PCP - General Internal Medicine 01/28/17 documented as of this encounter
--- OUTSIDE RECORDS SUMMARY | 2024-04-07 00:43 | External Medical Summary | Summary of Care ---
Author Name Unknown Organization [facility] Address [address] [place] [address] Phone [phone] Care Team Providers Care Aerial Photographer Name Role Phone Mary Lovell DO Primary Care Provider [phone] Reason for Visit * Reason Comments Infusion Ocrelizumab * Episode Based Medications (Routine) - Authorized Specialty Diagnoses / Procedures Referred By Eleno anders Referred To Contact Diagnoses Multiple sclerosis, relapsing-remitting (HCC) Procedures [place] INJECTION, OCRELIZUMAB, 1 MG Esc, Thelma Monzon MD [address] [place] [address] Phone: tel: fax: Hematology/Oncology Treatment, [place] DEPT CLOSED - 01/28/23 200 [facility] [place] [address] Phone: tel: fax: Referral ID Status Reason Start Date Expiration Date V isits Requested Visits Authorized [id number] Authorized 12/12/2023 12/11/2024 2 9 Encounter Details Date Type Department Care Team (Latest Contact Info) Description 12/26/2023 9:30 AM EDT Hem/Onc Treatment Hematology/Oncology Treatment, [place] 200 [facility] [place] [address] Multiple sclerosis, relapsing-remitting (HCC)* Allergies No known active allergiesdocumented as of this encounter (statuses as of 01/28/2024) Medications MEDICAL INSTRUCTIONSIndica tions:Multiple sclerosis (HCC) Use [...] morning. 16 g 2 04/24/19 24 Active LORazepam 0.5 MG Oral Tablet (Ativan) Take [...] 0.1 % Nasal Solution (Astelin) Administer 1 [place] into nostril in the morning and 1 [place] before bedtime. 30 mL 12 08/22/19 24 Active Vitamin D3 125 MCG (5000 UT) Oral Tablet Take 5,000 units (one tablet) by mouth twice daily x 12 weeks, then decrease to 5,000 units (one tablet) once daily thereafter 168 Tablet 10/31/19 24 Active Vitamin D3 50 MCG (1999 UT) Oral Capsule Take 2 Capsules by [...] skin once a week. 9 mL 1 4 2:38 PM EDT 12/09/19 24 Active Pantoprazole Sodium 40 MG Oral Tablet Delayed Release (Protonix) Take 1 Tablet by mouth in the morning. 30 minutes before the first meal of the day. Do not crush, split or chew the tablet. 90 Tablet 1 08/06/19 24 024 Discontin ued(Refil l) Hospital, Clinic, or Other Facility Administered Medication Ordered Dose Route Frequency Start Date End Date Status Albuterol Sulfate (Proventil) (2.5 MG/3ML) 0.083% inhalation solution 2.5 mgIndications:Sinus pressure 2.5 mg NEBULIZER ONCE PRN 04/24/2023 04/23/2024 Active documented as of this encounter (statuses as of 01/28/2024) Active Problems Problem Noted Date Diagnosed Date Wheezing 04/08/2023 Chronic frontal sinusitis 04/08/2023 Dermoid cyst of right ovary 04/12/2021 Migraine with aura and witho ut status migrainosus, not intractable 08/03/2018 Obesity, Class II, BMI 35-39.9, isolated (see ac tual BMI) 02/07/2017 Multiple sclerosis, relapsing-remitting 02/08/20 17 Vitamin D deficiency 02/03/2017 documented as of this encounter (statuses as of 01/28/2024) Resolved Problems Problem Noted Date Diagnosed Date Resolved Date Food insecurity 02/26/2021 09/26/2022 Overview: Per [facility] Protocol Sudden visual loss of left eye 01/28/2017 02/07/2017 Obesity, pediatric, BMI 95th to 98th percentile for age 0407/07/2014 02/07/2017 Depression 07/07/2014 02/07/2017 Deliberate self-cutting 07/07/201401/16 documented as of this encounter (statuses as of 01/28/2024) Immunizations Name Administration Dates Next Due DTaP Dipth/Tet/Acell Pertussis (Infanrix), Peds 04/07/2003,09/13/1999,03/02/1999,09/12,1998 HIB PRP-T, 4 Dose, PF, IM (H iberix, ActHib) 1998,1998 HPV Vaccine, 4-Valent 07/07/2014,07/02/2011,12/16 Hepatitis A, Ped/Adol., 18 y ear and below, 2-Dose 07/07/2014,03/31/2007 Hepatitis B, 0-19 yrs 03/02/1999,1998,04/18 Hepatitis B, 20+ yrs 02/03/2019 IPV - Polio Virus Vaccine (Inact) 09/10/1999,,1998 MMR - Measles/Mumps/Rubella Vaccine 04/07/2003,0 09/10/1999 Meningococcal Conjugate Vacc ine (Menactra/Menveo) 07/10/2015,01/04/2011 Pneumococcal Conjugate Vacci ne, 7 Valent 03/25/2000 Seasonal Influenza Vac., MDV , IM, 0.5 mL (Fluzone) 01/01/2014,01/28/2013,02/24/2012,01/30,01/03/2009 Seasonal Influenza, PF, 6 M & above, IM , (FluLaval or Fluzone) 01/19/2020,02/03/2019,01/05/2018,01/27 Seasonal Influenza, Quadriva lent, No Preserve, IM 01/31/2015 TDAP (age 10 and older)(Boostrix) 07/10/2015 TDAP, Age 7 and older, IM (Adacel) 01/04/2011 Varicella Vaccine (Chicken Pox) 01/04/2011,09/09 documented as of this encounter Social History [...] 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 Not on file documented as of this encounter Last Filed Vital Signs Vital Sign Reading Time Taken Comments Blood Pressure 110/79 12/26/2023 10:16 AM EDT Pulse 79 12/26/2023 10:16 AM EDT Temperature 36.2 C (97.2 F) 12/26/2023 10:16 AM E DT Respiratory Rate 16 12/26/2023 10:16 AM EDT Oxygen Saturation 98% 12/26/2023 10:16 AM EDT Inhaled Oxygen Concentration - - Weight - - Height - - Body Mass Index - - documented in this encounter Nursing Notes * Aiyana Kaminski RN - 12/26/2023 10:16 AM EDT Patient to chair 1 with father Patient voices no complaints or concerns Safety and Risk for Injury Patient will remain free from injury. Ensure appropriate safety devices are available. Provide and maintain safe environment. Patient instructed on use of heat and massage functions where applicable. Patient shown how to operate the heat function of the chair and to alert nursing staff if the chair feels too warm. Patient instructed on the risk of potential matamoros while using the heat function. Goals: patient will remain free of injury Possible barriers to meeting goals: ambulation with IV pole, increase risk of fall Stability of the patient: Moderately stable - low risk of patient condition declining or worsening Summary regarding today's goals: Met: patient remained free of injury Patient discharged in good condition, tolerated well without any reaction. documented in this encounter Plan of Treatment Upcoming Encounters Date Type Department Care Team (Late st Contact Info) Description 02/06/2024 10:00 AM EST Telemedicine Otolaryngology [facility] [address] [address] Mariah Mandel MD [address] [place] [address] 04/01/2024 12:40 PM EST Office Visit Nutrition & Weight Management, [facility] [address] [place] [address] Nae Cristina PA-C [address] [place] [address] 04/29/2024 3:00 PM EST Telemedicine Neurology [address] [place] [phone] Quyen Palma PA-C [address] [place] [address] 04/30/2024 9:00 AM EST Laboratory Laboratory [facility] 200 [facility] [place] [phone] [place], Lab [address] [facility] [place] [address] 05/03/2024 7:00 AM EST Pharmacy Neurology [address] [place] [phone] Brittny, Pharmacist Neurology [address] [place] [address] 06/25/2024 9:30 AM EDT Hem/Onc Treatment [facility] [place] [facility] [phone] 06/29/2024 8:30 AM EDT Office Visit Family Medicine [address] [place] [phone] Mary Lovell[address] [place] [address] 12/06/2024 2:20 PM EDT Office Visit Neurology [facility] [place] [address] [place] [address] Thelma Villatoro MD [address] [place] [address] Health Maintenance Due Date Last Done Comments [...] as of this encounter Visit Diagnoses Diagnosis Multiple sclerosis, relapsing-remitting (HCC)- Primary Multiple sclerosis documented in this encounter Administered Medications Inactive Administered Medications - up to 3 most recent administrations Medication Order MAR Action Action Date Dose Rate Site Acetaminophen (Tylenol) tab 650 mg 650 mg, Oral, ONCE, On Fri12/26/23 at 1015, For 1 dose, Maximum of 4 grams (4000 mg) per day.Indications:Multiple sclerosis, relapsing-remitting (HCC) Given 12/26/2023 10:05 AM EDT 650 mg diphenhydrAMINE (Benadryl) inj 50 mg 50 mg, IV Push, ONCE, On Fri12/26/23 at 1015, For 1 doseIndications:Multiple sclerosis, relapsing-remitting (HCC) Given 12/26/2023 10:06 AM EDT 50 mg diphenhydrAMINE (Benadryl) inj 50 mg 50 mg, IV Push, ONCE, On Fri12/26/23 at 1100, For 1 dose, PRIOR TO INCREASING RATE TO 120mL/hrIndications:Multip le sclerosis, relapsing-remitting (HCC) Given 12/26/2023 11:43 AM EDT 50 mg Hydrocortisone Sod Suc (PF) (Solu-Cortef) inj 100 mg 100 mg, IV Push, ONCE, On Fri12/26/23 at 1100, For 1 dose, PRIOR TO INCREASING RATE TO 120mL/hrIndications:Multip le sclerosis, relapsing-remitting (HCC) Given 12/26/2023 11:46 AM EDT 100 mg methylPREDNISolone sodium succ (SOLU-Medrol) inj 125 mg 125 mg, IV Push, ONCE, On Fri12/26/23 at 1015, For 1 doseIndications:Multiple sclerosis, relapsing-remitting (HCC) Given 12/26/2023 10:09 AM EDT 125 mg NSS infusion 500 mL, Intravenous, at 50 mL/hr, CONTINUOUS, Starting on Fri12/26/23 at 1100, Until Fri12/26/23 at 1559Indications:Multiple sclerosis, relapsing-remitting (HCC) Start Infusion 12/26/2023 9:58 AM EDT 500 mL 50 mL/hr Ocrelizumab (Ocrevus) 600 mg in NSS 500 mL infusion Intravenous, Administer over 4 Hours, Administer through a 0.22 micron in-line filter Start at a 40 mL/hr Increase by 40 mL/hr every 30 minutes Maximum: 200 mL/hr Duration: 3.5 hours or longer, ONCE, 1 dose, On Fri12/26/23 at 1045, 600 mgIndications:Multiple sclerosis, relapsing-remitting (HCC) Rate Change 12/26/2023 12:53 PM EDT 200 mL/hr Rate Change 12/26/2023 12:21 PM EDT 160 mL/hr Rate Change 12/26/2023 11:49 AM EDT 120 mL/hr documented in this encounter Advance Directives * Full Code (Latest Code Status on File) Date Activated Date Inactivated Comments 10/13/2020 10:06 AM 10/13/2020 9:06 PM This order reflects the patients wishes and were consensually agreed upon. Question Answer Comments Discussion of Advance Directives occurred with: Not Discussed Care Teams Aerial Photographer Relationship Specialty Start Date End Date Mary Lovell DO [address] [place] [address] [place] [address] PCP - General Internal Medicine 01/28/17 documented as of this encounter
--- OUTSIDE RECORDS SUMMARY | 2024-04-07 00:43 | External Medical Summary | Summary of Care ---
Author Name Unknown Organization [facility] Address [address] [place] [address] Phone [phone] Care Team Providers Care Internet Merchant Name Role Phone Mary Lovell DO Primary Care Provider [phone] Reason for Visit * Reason Comments Infusion Ocrelizumab * Episode Based Medications (Routine) - Authorized Specialty Diagnoses / Procedures Referred By Eleno anders Referred To Contact Diagnoses Multiple sclerosis, relapsing-remitting (HCC) Procedures [place] INJECTION, OCRELIZUMAB, 1 MG Esc, Thelma Monzon MD [address] [place] [address] Phone: tel: fax: Hematology/Oncology Treatment, [place] DEPT CLOSED - 01/28/23 200 [place] [address] Phone: tel: fax: Referral ID Status Reason Start Date Expiration Date V isits Requested Visits Authorized [id number] Authorized 12/12/2023 12/11/2024 2 9 Encounter Details Date Type Department Care Team (Latest Contact Info) Description 12/26/2023 9:30 AM EDT Hem/Onc Treatment Hematology/Oncology Treatment, [place] 200 [facility] [place] [phone] Multiple sclerosis, relapsing-remitting (HCC)* Allergies No [...] 0.1 % Nasal Solution (Astelin) Administer 1 [place] into nostril in the morning and 1 [place] before bedtime. 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 Not [...] Description 02/06/2024 10:00 AM EST Telemedicine Otolaryngology [facility] [address] [address] Mariah Mandel MD [address] [place] [address] 04/01/2024 12:40 PM EST Office Visit Nutrition & Weight Management, [facility] [address] [place] [address] Nae Cristina PA-C [address] [place] [address] 04/29/2024 3:00 PM EST Telemedicine Neurology [address] [place] [phone] Quyen Palma PA-C [address] [place] [address] 04/30/2024 9:00 AM EST Laboratory Laboratory [facility] 200 [facility] [place] [phone] [place], Lab [address] [facility] [place] [address] 05/03/2024 7:00 AM EST Pharmacy Neurology [address] [place] [phone] Brittny, Pharmacist Neurology [address] [place] [address] 06/25/2024 9:30 AM EDT Hem/Onc Treatment [facility]ematology[facility] [place] [facility] [phone] 06/29/2024 8:30 AM EDT Office Visit Family Medicine [address] [place] [phone] Mary Lovell[address] [place] [address] 12/06/2024 2:20 PM EDT Office Visit Neurology [facility] [place] [address] [place] [address] Thelma Villatoro MD [address] [place] [address] Health Maintenance Due Date Last Done Comments [...] Directives occurred with: Not Discussed Care Teams Internet Merchant Relationship Specialty Start Date End Date Mary Lovell DO [address] [place] [address] [place] [address] PCP - General Internal Medicine 01/28/17 documented as of this encounter
--- OUTSIDE RECORDS SUMMARY | 2024-04-07 00:43 | External Medical Summary | Summary of Care ---
Author Name Unknown Organization [facility] Address [address] [place] [address] Phone [phone] Care Team Providers Care Float Remover Name Role Phone Mary Lovell DO Primary Care Provider [phone] Reason for Visit * Reason Comments Infusion Ocrelizumab * Episode Based Medications (Routine) - Authorized Specialty Diagnoses / Procedures Referred By Eleno anders Referred To Contact Diagnoses Multiple sclerosis, relapsing-remitting (HCC) Procedures [place] INJECTION, OCRELIZUMAB, 1 MG Esc, Thelma Monzon MD [address] [place] [address] Phone: tel: fax: Hematology/Oncology Treatment, [place] DEPT CLOSED - 01/28/23 200 [place] [address] Phone: tel: fax: Referral ID Status Reason Start Date Expiration Date V isits Requested Visits Authorized [id number] Authorized 12/12/2023 12/11/2024 2 9 Encounter Details Date Type Department Care Team (Latest Contact Info) Description 12/26/2023 9:30 AM EDT Hem/Onc Treatment Hematology/Oncology Treatment, [place] 200 [facility] [place] [phone] Multiple sclerosis, relapsing-remitting (HCC)* Allergies No [...] 0.1 % Nasal Solution (Astelin) Administer 1 [place] into nostril in the morning and 1 [place] before bedtime. 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 Not [...] Description 02/06/2024 10:00 AM EST Telemedicine Otolaryngology [facility] [address] [address] [address] Mariah Mandel MD [address] [address] [address] 04/01/2024 12:40 PM EST Office Visit Nutrition & Weight Management, [facility] [address] [place] [address] Nae Cristina PA-C [address] [place] [address] 04/29/2024 3:00 PM EST Telemedicine Neurology [address] [place] [phone] Quyen Palma PA-C [address] [place] [address] 04/30/2024 9:00 AM EST Laboratory Laboratory [facility] 200 [facility] [place] [phone] [place], Lab [address] [facility] [place] [address] 05/03/2024 7:00 AM EST Pharmacy Neurology [address] [place] [phone] Brittny, Pharmacist Neurology [address] [place] [address] 06/25/2024 9:30 AM EDT Hem/Onc Treatment Hematology[facility], [place] [facility] [phone] 06/29/2024 8:30 AM EDT Office Visit Family Medicine [address] [place] [phone] Mary Lovell[address] [place] [address] 12/06/2024 2:20 PM EDT Office Visit Neurology [facility] [place] [address] [place] [address] Thelma Villatoro MD [address] [place] [address] Health Maintenance Due Date Last Done Comments [...] Directives occurred with: Not Discussed Care Teams Float Remover Relationship Specialty Start Date End Date Mary Lovell DO [address] [place] [address] [place] [address] PCP - General Internal Medicine 01/28/17 documented as of this encounter
--- OUTSIDE RECORDS SUMMARY | 2024-04-07 00:43 | External Medical Summary | Summary of Care ---
Author Name Unknown Organization [facility] Address [address] [place] [address] Phone [phone] Care Team Providers Care Facility Assistant Name Role Phone Mary Lovell DO Primary Care Provider [phone] Reason for Visit * Reason Comments Infusion Ocrelizumab * Episode Based Medications (Routine) - Authorized Specialty Diagnoses / Procedures Referred By Eleno anders Referred To Contact Diagnoses Multiple sclerosis, relapsing-remitting (HCC) Procedures [place] INJECTION, OCRELIZUMAB, 1 MG Esc, Thelma Monzon MD [address] [place] [address] Phone: tel: fax: Hematology/Oncology Treatment, [place] DEPT CLOSED - 01/28/[address] [place] [address] Phone: tel: fax: Referral ID Status Reason Start Date Expiration Date V isits Requested Visits Authorized [id number] Authorized 12/12/2023 12/11/2024 2 9 Encounter Details Date Type Department Care Team (Latest Contact Info) Description 12/26/2023 9:30 AM EDT Hem/Onc Treatment Hematology/Oncology Treatment, [place] 200 [facility] [place] [phone] Multiple sclerosis, relapsing-remitting (HCC)* Allergies No [...] 0.1 % Nasal Solution (Astelin) Administer 1 [place] into nostril in the morning and 1 [place] before bedtime. 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 Not [...] Description 02/06/2024 10:00 AM EST Telemedicine Otolaryngology [facility] [address] [address] Mariah Mandel MD [address] [place] [address] [address] 04/01/2024 12:40 PM EST Office Visit Nutrition & Weight Management, [facility] [address] [place] [address] Nae Cristina PA-C [address] [place] [address] 04/29/2024 3:00 PM EST Telemedicine Neurology [address] [place] [phone] Quyen Palma PA-C [address] [place] [address] 04/30/2024 9:00 AM EST Laboratory Laboratory [facility] 200 [facility] [place] [phone] [place], Lab [address] [facility] [place] [address] 05/03/2024 7:00 AM EST Pharmacy Neurology [address] [place] [phone] Brittny, Pharmacist Neurology [address] [place] [address] 06/25/2024 9:30 AM EDT Hem/Onc Treatment [facility]ematology[facility], [place] [facility] [phone] 06/29/2024 8:30 AM EDT Office Visit Family Medicine [address] [place] [phone] Mary Lovell[address] [place] [address] 12/06/2024 2:20 PM EDT Office Visit Neurology [facility] [place] [address] [place] [address] Thelma Villatoro MD [address] [place] [address] Health Maintenance Due Date Last Done Comments [...] Directives occurred with: Not Discussed Care Teams Facility Assistant Relationship Specialty Start Date End Date Mary Lovell DO [address] [place] [address] [place] [address] PCP - General Internal Medicine 01/28/17 documented as of this encounter
--- OUTSIDE RECORDS SUMMARY | 2024-04-07 00:43 | External Medical Summary | Summary of Care ---
Author Name Unknown Organization [facility] Address [address] [place] [address] Phone [phone] Care Team Providers Care Chief Technical Officer Name Role Phone Mary Lovell DO Primary Care Provider [phone] Reason for Visit * Reason Comments Infusion Ocrelizumab * Episode Based Medications (Routine) - Authorized Specialty Diagnoses / Procedures Referred By Eleno anders Referred To Contact Diagnoses Multiple sclerosis, relapsing-remitting (HCC) Procedures [place] INJECTION, OCRELIZUMAB, 1 MG Esc, Thelma Monzon MD [address] [place] [address] Phone: tel: fax: Hematology/Oncology Treatment, [place] DEPT CLOSED - 01/28/23 200 [place] [address] Phone: tel: fax: Referral ID Status Reason Start Date Expiration Date V isits Requested Visits Authorized [id number] Authorized 12/12/2023 12/11/2024 2 9 Encounter Details Date Type Department Care Team (Latest Contact Info) Description 12/26/2023 9:30 AM EDT Hem/Onc Treatment Hematology/Oncology Treatment, [place] 200 [facility] [place] [phone] Multiple sclerosis, relapsing-remitting (HCC)* Allergies No [...] 0.1 % Nasal Solution (Astelin) Administer 1 [place] into nostril in the morning and 1 [place] before bedtime. 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 Not [...] Description 02/06/2024 10:00 AM EST Telemedicine Otolaryngology [facility] [address] [address] [address] Mariah Mandel MD [address] [place] [address] [address] 04/01/2024 12:40 PM EST Office Visit Nutrition & Weight Management, [facility] [address] [place] [address] Nae Cristina PA-C [address] [place] [address] 04/29/2024 3:00 PM EST Telemedicine Neurology [address] [place] [phone] Quyen Palma PA-C [address] [place] [address] 04/30/2024 9:00 AM EST Laboratory Laboratory [facility] 200 [facility] [place] [phone] [place], Lab [address] [facility] [place] [address] 05/03/2024 7:00 AM EST Pharmacy Neurology [address] [place] [phone] Brittny, Pharmacist Neurology [address] [place] [address] 06/25/2024 9:30 AM EDT Hem/Onc Treatment Hematology/Oncology Treatment, [place] [facility] [phone] 06/29/2024 8:30 AM EDT Office Visit Family Medicine [address] [place] [phone] Mary Lov[address] [place] [address] 12/06/2024 2:20 PM EDT Office Visit Neurology [facility] [place] [address] [place] [address] Thelma Villatoro MD [address] [place] [address] Health Maintenance Due Date Last Done Comments [...] Directives occurred with: Not Discussed Care Teams Chief Technical Officer Relationship Specialty Start Date End Date Mary Lovell DO [address] [place] [address] [place] [address] PCP - General Internal Medicine 01/28/17 documented as of this encounter
--- OUTSIDE RECORDS SUMMARY | 2024-04-07 00:43 | External Medical Summary | Summary of Care ---
Author Name Unknown Organization [facility] Address [address] [place] [address] Phone [phone] Care Team Providers Care Research Specialist Name Role Phone Mary Lovell DO Primary Care Provider [phone] Reason for Visit * Reason Comments NEW PATIENT * Evaluate & Treat - Unlimited Visits (Within 30 days (routine)) - Authorized Specialty Diagnoses / Procedures Referred By Eleno anders Referred To Contact Sleep Medicine / Sleep Disorders Diagnoses Multiple sclerosis, relapsing-remitting (HCC) Quyen Palma PA-C [address] [place] [address] Referral ID Status Reason Start Date Expiration Date Visits Requested Visits Authorized [id number] Authorized Specialty Services Required 04/28/2023 2 2 Encounter Details Date Type Department Care Team (Late st Contact Info) Description 01/06/2024 2:20 PM EDT Telemedicine Sleep Disorders Ctr [facility] [address] [facility] [place] [phone] Jalyn Sommer DO [address] [facility] [place] [address] Sleep apnea, unspecified type*; Restless legs syndrome (RLS); Disorder of iron metabolism, unspecified Allergies No known active allergiesdocumented as of this encounter (statuses as of 01/12/2024) Medications Medication Sig Dispensed Refills Start Date End Date Status MEDICAL INSTRUCTIONSIndicati ons:Multiple sclerosis (HCC) Use as directed. Maintain access for on going med therapy may D/C after last dose 1 Each N/A 10/27/2017 Active Ocrevus 300 MG/10ML Intravenous Solution (Ocrelizumab) Administer 600mg once every 6 months. 20 mL 2 02/13/2021 Active Rizatriptan Benzoate 10 MG Oral Tablet Disintegrating Take 1 Tablet by mouth as needed for Migraine. May repeat in 2 hours if needed 10 Tablet 05/13/2022 Active Clindamycin Phosphate 1 % External SolutionIndications: Folliculitis Apply topically to affected area 2 times a day. To affected area of skin. 60 mL 5 09/19/2022 Active Continuation of patient use of medical marijuana is approved Use as directed. Active Ondansetron 4 MG Oral Tablet Disintegrating (Zofran) Place 1 Tablet on tongue daily as needed for Nausea. dissolve on tongue. 90 Tablet 3 03/11/2023 Active Fluticasone Propionate 50 MCG/ACT Nasal Suspension (Flonase)Indications :Sinus pressure Administer 2 Sprays into each nostril in the morning. 16 g 2 04/24/2023 Active Additional Information Patient not taking.Reported on 01/05/2024 LORazepam 0.5 MG Oral Tablet (Ativan) Take 1 tablet by mouth 30 minutes before MRI. If needed, you can take an additional tablet right before your MRI. Do not drive on this medication. 2 Tablet 04/28/2023 Active Albuterol Sulfate HFA 108 (90 Base) MCG/ACT Inhalation Aerosol SolutionIndications: Bronchitis, complicated Inhale 2 Puffs by mouth every 4 hours as needed for Wheezing or Cough. 18 g 3 08/05/2023 Active Pantoprazole Sodium 40 MG Oral Tablet Delayed Release (Protonix) Take 1 Tablet by mouth in the morning. 30 minutes before the first meal of the day. Do not crush, split or chew the tablet. 90 Tablet 1 08/06/2023 Active Budesonide 0.5 MG/2ML Inhalation Suspension (Pulmicort) As directed in nasal saline rinse twice a day 120 mL 12 08/22/2023 Active Azelastine HCl 0.1 % Nasal Solution (Astelin) Administer 1 Sadler into nostril in the morning and 1 Sadler before bedtime. 30 mL 12 08/22/2023 Active Additional Information Patient not taking.Reported on 01/05/2024 Vitamin D3 125 MCG (5000 UT) Oral Tablet Take 5,000 units (one tablet) by mouth twice daily x 12 weeks, then decrease to 5,000 units (one tablet) once daily thereafter 168 Tablet 10/31/2023 Active Vitamin D3 50 MCG (2000 UT) Oral Capsule Take 2 Capsules by mouth in the morning. After completing 12 weeks of the 5000 units twice daily. 60 Capsule 5 10/31/2023 Active dexAMETHasone 0.1 % Ophthalmic Suspension 4 drops in saline rinse twice a day 5 mL 3 11/24/2023 Active Semaglutide(0.25 or 0.5MG/DOS) 2 MG/3ML Solution Pen-injector (Zep Solar) Inject 0.5 mg under the skin once a week. 9 mL 1 12/09/2023 Active Hospital, Clinic, or Other Facility Administered Medication Ordered Dose Route Frequency Start Date End Date Status Albuterol Sulfate (Proventil) (2.5 MG/3ML) 0.083% inhalation solution 2.5 mgIndications:Sinus pressure 2.5 mg NEBULIZER ONCE PRN 04/24/2023 04/23/2024 Active documented as of this encounter (statuses as of 01/12/2024) Active Problems Problem Noted Date Diagnosed Date Wheezing 04/08/2023 Chronic frontal sinusitis 04/08/2023 Dermoid cyst of right ovary 04/12/2021 Migraine with aura and witho ut status migrainosus, not intractable 08/03/2018 Obesity, Class II, BMI 35-39.9, isolated (see ac tual BMI) 02/07/2017 Multiple sclerosis, relapsing-remitting 02/08/20 17 Vitamin D deficiency 02/03/2017 documented as of this encounter (statuses as of 01/12/2024) Resolved Problems Problem Noted Date Diagnosed Date Resolved Date Food insecurity 02/26/2021 09/26/2022 Overview: Per [facility] Protocol Sudden visual loss of left eye 01/28/2017 02/07/2017 Obesity, pediatric, BMI 95th to 98th percentile for age 0407/07/2014 02/07/2017 Depression 07/07/2014 02/07/2017 Deliberate self-cutting 07/07/201401/16 documented as of this encounter (statuses as of 01/12/2024) Immunizations Name Administration Dates Next Due DTaP [...] y our heating, water, or electric bill? (Adult - for ages 18 years and over) Not on file 09/23/2023 Is your family able to pay t he heat, water, or electric bill? (Household - for ages 0-17 years) Not on file 09/23/2023 Does your family have access to good internet? (Household - for ages 0-17 years) Not on file 09/23/2023 Employment Status Answer Date Recorded Are you unemployed or without regular income? No 09/18/2022 Does the household have a re lar source of income? (Household - for ages 0-17 years) Not on file 09/18/2022 Social Connections Answer Date Recorded How often do you feel lonely or isolated from those around you? (Adult - for ages 18 years and over) Not on file 09/23/2023 Financial Resource Strain Answer Date R ecorded [...] ages 0-17 years) Not on file 09/18/2022 Sex and Gender Information Value Date Recorded Sex Assigned at Female 01/18/2022 7:53 PM EDT Gender Identity Female 01/18/2022 7:53 PM EDT Sexual Orientation Straight 01/18/2022 7: 53 PM EDT Job Start Date Occupation Industry Not on file Not on file Not on file documented as of this encounter Last Filed Vital Signs Vital Sign Reading Time Taken Comments Blood Pressure - - Pulse - - Temperature - - Respiratory Rate - - Oxygen Saturation - - Inhaled Oxygen Concentration - - Weight - - Height 172.7 cm (5' 8") 01/05/2024 11:07 AM EDT Body Mass Index - - documented in this encounter Progress Notes * Jalyn Sommer, DO - 01/06/2024 2:43 PM EDT Sleep Medicine Evaluation Edgar [address] [place] [address] Patient location: HOME. I was in a hospital or clinic location. After connecting through televideo,patient was verified with two unique identifiers. Patient (or authorized legal client service representative) was then informed that this was a Telemedicine visit and being conducted confidentially over secure lines. Methods to assure confidentiality were taken. Patient acknowledged consent and understanding of pr ivacy and security of the Telemedicine visit. The patient agreed to participate. Consultation was requested by: Quyen Palma PA-C for: "Patient wakes up gasping for air and daytime fatigue difficulty losing weight", relapsing-remitting multiple sclerosis and a copy of this report is being sent to the provider electronically. Relevant available records reviewed. HPI: Fidel Baumann is a(n) 23 year old female presenting for evaluation for suspected sleep apnea. Prior PSG 04/22/2019 (weight 244 lbs): TST 352.5 min, 16% REM. AHI 1.5. SpO2 brittany 91%. PLMI 5.6. Sleep seems to have worsened in the meantime. Gasping awakenings, sometimes wakes up feeling like she cannot breathe or like someone is sitting on her chest. Patient reports a typical bedtime of 11:30 pm to midnight on workdays, later on weekends. It takes "very long", at least an hour, to fall asleep. Has mind racing, pain (which she feels is associated with MS). Patient awakens at least every hour overnight, sometimes from restless legs, sometimes wakes up gasping, or for unclear reason. It takes varying times, often 30 minutes or longer, to return to sleep. Patient awakens for the day at 6:50-7:50 AM during the week, around 9-10 AM on weekends, feeling still tired. Patient does feel tired during the day. After 5-5:30 PM she feels more alert. Patient does sometimes take naps. Sometimes for 40-60 minutes after work. Patient does not typically have caffeine. The patient reports having ("+" indicates reports, "-" indicates denies): unsure Snoring - Observed apneas + gasping awakenings + Mouth breathing, more recently, waking up with dry mouth now. + Acid reflux at night, on pantoprazole with benefit. occasional Nocturia sometimes Morning headaches - Teeth grinding Restless Legs Syndrome Symptoms ("+" indicates reports, "-" indicates denies): + Pain/discomfort in legs at night + Urge to move legs at night + Better with movement Sxs almost all the time + Disrupts sleep, nightly Sxs bother her during the day as well, when sitting. + hx low iron levels + FHx in mother and maternal grandmother and grandfather She was taking medication for RLS, but stopped it a couple months ago when her dog had gotten aholdof it. Unsure which medication this was. Parasomnias Symptoms ("+" indicates reports, "-" indicates denies): - Sleepwalking - Dream-enactment Excessive Daytime Sleepiness: Braddock Sleepiness Scale 10 Modified F.O.S.Q. 34 rare Drowsy driving Braddock Sleepiness Scale Question 01/05/2024 11:11 AM EDT - Filed by Salud Johnson LPN What is the chance you will doze off in the following situation? Sitting and reading Slight chance of dozing Watching TV Moderate chance of dozing Sitting inactive in a public place, such as a theater or meeting No chance of dozing As a passenger in a car for an hour without a break Slight chance of dozing Lying down to rest in the afternoon when circumstances permit High chance of dozing When sitting and talking to someone No chance of dozing When sitting quietly after lunch without alcohol High chance of dozing In a car, while stopped for a few minutes in traffic No chance of dozing Score (range: 0 - 24) 10 Functional Outcomes Of Sleep Question 01/05/2024 11:13 AM EDT - Filed by Salud Johnson LPN Please complete the following questions. Do you have difficulty concentrating because you are sleepy or tired? Yes, moderate Do you have difficulty remembering things because you are sleepy or tired? Yes, moderate Do you have difficulty operating a motor vehicle for short distances (less than 100 miles) because you become sleepy? Yes, a little Do you have difficulty operating a motor vehicle for long distances (more than 100 miles) because you become sleepy? Yes, a little Do you have difficulty visiting family or friends in their home because you become sleepy or tired?Yes, a little Has your relationship with family, friends, or work colleagues been affected because you are sleepyor tired? Yes, a little Do you have difficulty watching a movie or video because you become sleepy or tired? Yes, moderate Do you have difficulty being as active as you want to be in the evening because you are tired or sleepy? Yes, moderate Do you have difficulty being as active as you want to be in the morning because you are tired or sleepy? Yes, moderate Has your mood been affected because you are sleepy or tired? Yes, moderate Score (range: 10 - 40) 24 PMH: Past Medical History: Diagnosis Date Depression 07/07/2014 Dermoid cyst of right ovary 04/12/2021 Migraine with aura and without status migrainosus, not intractable 08/03/2018 Multiple sclerosis, relapsing-remitting (HCC) 02/07/2017 Obesity, Class II, BMI 35-39.9, isolated (see actual BMI) 02/07/2017 Sudden visual loss of left eye 01/28/2017 Vitamin D deficiency 02/03/2017 Migraines about 10 days out of a month (much better with Ocrevus) Past Surgical History: Procedure Laterality Date DENTAL SURGERY PROCEDURE NEC EGD, W/ENDOSCOPIC US 09/28/2020 normal EGD /biopsies small intestine & stomach were within normal limits / EUS multi stones in gallbladder / no specimens collected / ESOPHAGOGASTRODUODENOSCOPY (EGD), FLEXIBLE, TRANSORAL, ENDOSCOPIC ULTRASOUND performed by Prosper Caba DO at ENDOSCOPY [facility] LAPAROSCOPY; CHOLECYSTECTOMY N/A 10/13/2020 LAPAROSCOPIC CHOLECYSTECTOMY performed by Carrillo Nguyễn MD at [facility] LUMBAR PUNCTURE 2016 ALLERGIES: Review of patient's allergies indicates: No Known Allergies MEDS: Current Outpatient Medications Medication Sig Dispense Refill Semaglutide(0.25 or 0.5MG/DOS) 2 MG/3ML Solution Pen-injector (Ozempic) Inject 0.5 mg under the skin once a week. 9 mL 1 dexAMETHasone 0.1 % Ophthalmic Suspension 4 drops in saline rinse twice a day 5 mL 3 Vitamin D3 125 MCG (5000 UT) Oral Tablet Take 5,000 units (one tablet) by mouth twice daily x 12 weeks, then decrease to 5,000 units (one tablet) once daily thereafter 168 Tablet 0 Vitamin D3 50 MCG (2000 UT) Oral Capsule Take 2 Capsules by mouth in the morning. After completing 12 weeks of the 5000 units twice daily. 60 Capsule 5 Budesonide 0.5 MG/2ML Inhalation Suspension (Pulmicort) As directed in nasal saline rinse twice a day 120 mL 12 Pantoprazole Sodium 40 MG Oral Tablet Delayed Release (Protonix) Take 1 Tablet by mouth in the morning. 30 minutes before the first meal of the day. Do not crush, split or chew the tablet. 90 Tablet 1 Albuterol Sulfate HFA 108 (90 Base) MCG/ACT Inhalation Aerosol Solution Inhale 2 Puffs by mouth every 4 hours as needed for Wheezing or Cough. 18 g 3 Ondansetron 4 MG Oral Tablet Disintegrating (Zofran) Place 1 Tablet on tongue daily as needed for Nausea. dissolve on tongue. 90 Tablet 3 Continuation of patient use of medical marijuana is approved Use as directed. Clindamycin Phosphate 1 % External Solution Apply topically to affected area 2 times a day. To affected area of skin. 60 mL 5 Rizatriptan Benzoate 10 MG Oral Tablet Disintegrating Take 1 Tablet by mouth as needed for Migraine. May repeat in 2 hours if needed 10 Tablet 0 Ocrevus 300 MG/10ML Intravenous Solution (Ocrelizumab) Administer 600mg once every 6 months. 20 mL 2 MEDICAL INSTRUCTIONS Use as directed. Maintain access for on going med therapy may D/C after last dose 1 Each N/A Azelastine HCl 0.1 % Nasal Solution (Astelin) Administer 1 Sadler into nostril in the morning and 1 Sadler before bedtime. (Patient not taking: Reported on 01/05/2024) 30 mL 12 LORazepam 0.5 MG Oral Tablet (Ativan) Take 1 tablet by mouth 30 minutes before MRI. If needed, you can take an additional tablet right before your MRI. Do not drive on this medication. 2 Tablet 0 Fluticasone Propionate 50 MCG/ACT Nasal Suspension (Flonase) Administer 2 Sprays into each nostril in the morning. (Patient not taking: Reported on 01/05/2024) 16 g 2 Current Facility-Administered Medications Medication Dose Route Frequency Provider Last Rate Last Admin Albuterol Sulfate (Proventil) (2.5 MG/3ML) 0.083% inhalation solution 2.5 mg 2.5 mg Nebulizer Once PRN Leana Fagan PA-C 2.5 mg at 04/25/23 1422 Medical marijuana, daily, for MS, uses at nighttime. Additional ROS: + weight loss with Ozempic. FHx: maternal grandmother was recently diagnosed with sleep apnea. Social hx: Tobacco use: none Alcohol use: occasional Drug use: medical marijuana Employment: data entry / medical billing, from home. PE: Weight 217 lbs, per patient report. BMI Readings from Last 1 Encounters: 01/05/24 34.53 kg/m PE limited due to telemedicine. Patient does not appear to be in distress. No rash on visible skin on face. Breathing does not appear to be labored. No audible stridor. Speech is clear and appropriate. Appropriate affect. IMPRESSION/RECOMMENDATIONS: Gasping awakenings, fatigue - suspect AGUSTIN - STOP-BANG 2 (tired and observed apneas/gasping awakenings) - Discussed the pathophysiology, implications on short- and long-term health, diagnostic evaluation, and likely treatment options of AGUSTIN - WatchPAT home sleep apnea test to evaluate for AGUSTIN. Discussed that if the HSAT does not show AGUSTIN,we will likely recommend in-lab PSG. - Avoid driving when sleepy/drowsy. - Discussed the relationship between weight and sleep apnea. Sleep apnea, if present, may improve with weight loss. Please verify the following with the patient before ordering WatchPAT study: Does patient have Wifi? Yes Does patient have smart phone? Yes Do they have acrylic nails or nail lithuanian? No: Do they have a pacemaker? No Are they on alphablockers? Please list which med is the alphablocker: no What is the phone number of the cell phone they will be using? [phone] RLS - check iron screen w/ ferritin with next lab draw. Follow-up: Return will send MyG with WatchPAT results. | Check-out note: WatchPAT Lexii Sommer DO documented in this encounter Nursing Notes * Salud Johnson LPN - 01/05/2024 11:13 AM EDT New pt video visit due to gasping for air, daytime fatigue, difficulty losing weight. She has MS. Braddock Sleepiness Scale Question 01/05/2024 11:11 AM EDT - Filed by Salud Johnson LPN What is the chance you will doze off in the following situation? Sitting and reading Slight chance of dozing Watching TV Moderate chance of dozing Sitting inactive in a public place, such as a theater or meeting No chance of dozing As a passenger in a car for an hour without a break Slight chance of dozing Lying down to rest in the afternoon when circumstances permit High chance of dozing When sitting and talking to someone No chance of dozing When sitting quietly after lunch without alcohol High chance of dozing In a car, while stopped for a few minutes in traffic No chance of dozing Score (range: 0 - 24) 10 Functional Outcomes Of Sleep Question 01/05/2024 11:13 AM EDT - Filed by Salud Johnson LPN Please complete the following questions. Do you have difficulty concentrating because you are sleepy or tired? Yes, moderate Do you have difficulty remembering things because you are sleepy or tired? Yes, moderate Do you have difficulty operating a motor vehicle for short distances (less than 100 miles) because you become sleepy? Yes, a little Do you have difficulty operating a motor vehicle for long distances (more than 100 miles) because you become sleepy? Yes, a little Do you have difficulty visiting family or friends in their home because you become sleepy or tired?Yes, a little Has your relationship with family, friends, or work colleagues been affected because you are sleepyor tired? Yes, a little Do you have difficulty watching a movie or video because you become sleepy or tired? Yes, moderate Do you have difficulty being as active as you want to be in the evening because you are tired or sleepy? Yes, moderate Do you have difficulty being as active as you want to be in the morning because you are tired or sleepy? Yes, moderate Has your mood been affected because you are sleepy or tired? Yes, moderate Score (range: 10 - 40) 24 documented in this encounter Plan of Treatment Upcoming Encounters Date Type Department Care Team (Late st Contact Info) Description 02/06/2024 10:00 AM EST Telemedicine Otolaryngology [address] [place] [address] Mariah Mandel MD [address] [place] [address] 04/01/2024 12:40 PM EST Office Visit Nutrition & Weight Management, [facility] [address] [place] [address] Nae Cristina PA-C [address] [facility] [place] [address] 04/29/2024 3:00 PM EST Telemedicine Neurology [address] [place] [phone] Quyen Palma PA-C [address] [place] [facility] [place] [address] 04/30/2024 9:00 AM EST Laboratory [facility] [address] [facility] [phone] [place], Lab Scenery [address] [facility] [place] [address] 05/03/2024 7:00 AM EST Pharmacy Neurology [address] [place] [phone] Brittny, Pharmacist Neurology [address], [place] [phone] 06/25/2024 9:30 AM EDT Hem/Onc Treatment Hematology/Oncology Treatment, [place] [address] [place] [phone] 06/29/2024 8:30 AM EDT Office Visit Family Medicine [address] [place] [phone] Mary Lovell[address] [place] [address] 12/06/2024 2:20 PM EDT Office Visit Neurology Ina Hood [place] [address] [place] [address] MartinThelma MD [address] [place] [address] Scheduled Orders Name Type Priority Associated Diagnoses Orde r Schedule IRON SCREEN, INCLUDING TIBC Lab Routine Restless legs syndrome (RLS) Disorder of iron metabolism, unspecified Expected: 01/07/2024 (Approximate), Expires: 01/05/2025 FERRITIN Lab Routine Restless legs syndrome (RLS) Disorder of iron metabolism, unspecified Expected: 01/07/2024 (Approximate), Expires: 01/05/2025 TIMED SLEEP STUDY, UNATTEND, HR/O2 SAT/RESP Procedures Routine Sleep apnea, unspecified type Ordered: 01/06/2024 Health Maintenance Due Date Last Done Comments [...] as of this encounter Visit Diagnoses Diagnosis Sleep apnea, unspecified type- Primary Restless legs syndrome (RLS) Disorder of iron metabolism, unspecified documented in this encounter Advance Directives * Full Code (Latest Code Status on File) Date Activated Date Inactivated Comments 10/13/2020 10:06 AM 10/13/2020 9:06 PM This order reflects the patients wishes and were consensually agreed upon. Question Answer Comments Discussion of Advance Directives occurred with: Not Discussed Care Teams Research Specialist Relationship Specialty Start Date End Date Mary Lovell DO [address] [place] [address] [place] [phone] PCP - General Internal Medicine 01/28/17 documented as of this encounter
--- OUTSIDE RECORDS SUMMARY | 2024-04-07 00:43 | External Medical Summary | Summary of Care ---
Author Name Unknown Organization [facility] Address [address] [place] [address] Phone [phone] Care Team Providers Care Driver Material Handler Name Role Phone Mary Lovell DO Primary Care Provider [phone] Reason for Visit * Reason Comments Infusion Ocrelizumab * Episode Based Medications (Routine) - Authorized Specialty Diagnoses / Procedures Referred By Eleno anders Referred To Contact Diagnoses Multiple sclerosis, relapsing-remitting (HCC) Procedures [place] INJECTION, OCRELIZUMAB, 1 MG Esc, Thelma Monzon MD [address] [place] [address] Phone: tel: fax: Hematology/Oncology Treatment, [place] DEPT CLOSED - 01/28/23 200 [place] [address] Phone: tel: fax: Referral ID Status Reason Start Date Expiration Date V isits Requested Visits Authorized [id number] Authorized 12/12/2023 12/11/2024 2 9 Encounter Details Date Type Department Care Team (Latest Contact Info) Description 12/26/2023 9:30 AM EDT Hem/Onc Treatment Hematology/Oncology Treatment, [place] 200 [facility] [place] [address] Multiple sclerosis, relapsing-remitting (HCC)* Allergies No [...] 0.1 % Nasal Solution (Astelin) Administer 1 [place] into nostril in the morning and 1 [place] before bedtime. 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 Not on file Not [...] Description 02/06/2024 10:00 AM EST Telemedicine Otolaryngology [facility] [address] [address] Mariah Mandel MD [address] [place] [address] 04/01/2024 12:40 PM EST Office Visit Nutrition & Weight Management, [facility] [address] [place] [address] Nae Cristina PA-C [address] [place] [address] 04/29/2024 3:00 PM EST Telemedicine Neurology [address] [place] [phone] Quyen Palma PA-C [address] [place] [address] 04/30/2024 9:00 AM EST Laboratory Laboratory [facility] 200 [facility] [place] [phone] [place], Lab [address] [facility] [place] [address] 05/03/2024 7:00 AM EST Pharmacy Neurology [address] [place] [phone] Brittny, Pharmacist Neurology [address] [place] [address] 06/25/2024 9:30 AM EDT Hem/Onc Treatment [facility] [place] [facility] [phone] 06/29/2024 8:30 AM EDT Office Visit Family Medicine [address] [place] [phone] Mary Lovell[address] [place] [address] 12/06/2024 2:20 PM EDT Office Visit Neurology [facility] [place] [address] [place] [address] Thelma Villatoro MD [address] [place] [address] Health Maintenance Due Date Last Done Comments [...] Directives occurred with: Not Discussed Care Teams Driver Material Handler Relationship Specialty Start Date End Date Mary Lovell DO [address] [place] [address] [place] [address] PCP - General Internal Medicine 01/28/17 documented as of this encounter
--- OUTSIDE RECORDS SUMMARY | 2024-04-07 00:43 | External Medical Summary ---
Author Name Unknown Address Unknown Organization [id number]:LABORATORY [facility] [place] - [address] [facility] [address] Laboratory Report Ordering Provider Test Date Status JOSIE WHITNEY 01/14/2024 14:44:00 Final Dried Blood Spot specimens h ave been validated for general health screening purposes only. This test should not be used for diagnosis or medical treatment without confirmation by other medically established means. The use of HbA1c to monitor glycemic status is based on normal hemoglobin and HbA composition, and should not be used in patients with abnormal hemoglobin that affects the half life of the red blood cell or the in vivo glycation rates.

This test was developed and its performance characteristics determined by [employer]. It has not been cleared or approved by the [place] Food and Drug Administration.

This test was performed as part of a [facility] Care-Gap fulfillment initiative.
null Observation Date Value Abnormality Reference (Units ) Status Hemoglobin A1c/Hemoglobin.total in DBS 01/14/2024 14:44:00 5.1 4.0-5.6 (%) Final Glucose, estimated average 01/14/2024 14:44:00 100 <126 (mg/dL) Final Performing Location LAB[facility] - [address] [facility] [address]
--- OUTSIDE RECORDS SUMMARY | 2024-04-07 00:43 | External Medical Summary | Summary of Care ---
Author Name Unknown Organization [facility] Address [address] [place] [address] Phone [phone] Care Team Providers Care Nurses Aide Name Role Phone Mary Lovell DO Primary Care Provider [phone] Encounter Details Date Type Department Care Team (Late st Contact Info) Description 01/13/2024 Orders Only PATIENT PORTAL DO NOT DELETE THIS DEPT USED BY [place]IR[place]OCKETT [id number] Allergies No known active allergiesdocumented as of this encounter (statuses as of 01/13/2024) Medications Medication Sig Dispensed Refills Start Date [...] 0.1 % Nasal Solution (Astelin) Administer 1 [place] into nostril in the morning and 1 [place] before bedtime. 30 mL 12 08/22/2023 Active [...] as of this encounter (statuses as of 01/13/2024) Active Problems Problem Noted Date Diagnosed Date Wheezing 04/08/2023 Chronic frontal sinusitis 04/08/2023 Dermoid cyst of right ovary 04/12/2021 Migraine with aura and witho ut status migrainosus, not intractable 08/03/2018 Obesity, Class II, BMI 35-39.9, isolated (see ac tual BMI) 02/07/2017 Multiple sclerosis, relapsing-remitting 02/08/20 17 Vitamin D deficiency 02/03/2017 documented as of this encounter (statuses as of 01/13/2024) Resolved Problems Problem Noted Date Diagnosed Date Resolved Date Food insecurity 02/26/2021 09/26/2022 Overview: Per [facility] Protocol Sudden visual loss of left eye 01/28/2017 02/07/2017 Obesity, pediatric, BMI 95th to 98th percentile for age 0407/07/2014 02/07/2017 Depression 07/07/2014 02/07/2017 Deliberate self-cutting 07/07/201401/16 documented as of this encounter (statuses as of 01/13/2024) Immunizations Name Administration Dates Next Due DTaP [...] Description 02/06/2024 10:00 AM EST Telemedicine Otolaryngology [facility] [address] [place] [address] Mariah Mandel MD [address] [place] [address] 04/01/2024 12:40 PM EST Office Visit Nutrition & Weight Management, [facility] [address] [address] Nae Cristina PA-C 132 [facility] [place] [address] 04/29/2024 3:00 PM EST Telemedicine Neurology [address]ny [address] [place] [phone] Quyen Palma PA-C 100 [address] [facility] [place] [address] 04/30/2024 9:00 AM EST Laboratory Laboratory [facility] [place] [address] [place] [phone] Lilian Hood [facility] 200 [place] [address] 05/03/2024 7:00 AM EST Pharmacy Neurology [place], [place] [address] [place] [phone] Brittny, Pharmacist Neurology [address] [place] [address] 06/25/2024 9:30 AM EDT Hem/Onc Treatment Hematology/Oncology Treatment, [place] 200 [place] [phone] 06/29/2024 8:30 AM EDT Office Visit Family Medicine [address] [phone] [address] [place] [address] 12/06/2024 2:20 PM EDT Office Visit Neurology [facility] 200 [place] [address] [facility] [address] [place] [address] Health Maintenance Due Date Last [...] Directives occurred with: Not Discussed Care Teams Nurses Aide Relationship Specialty Start Date End Date Mary Lovell DO [address] [place] [address] [place] [address] PCP - General Internal Medicine 01/28/17 documented as of this encounter
--- OUTSIDE RECORDS SUMMARY | 2024-04-07 00:43 | External Medical Summary | Summary of Care ---
Author Name Unknown Organization [facility] Address [address] [place] [address] Phone [phone] Care Team Providers Care Wax Room Supervisor Name Role Phone Mary Lovell Primary Care Provider Reason for Visit * Reason Comments Infusion Ocrelizumab * Episode Based Medications (Routine) - Authorized Specialty Diagnoses / Procedures Referred By Eleno t Referred To Contact Diagnoses Multiple sclerosis, relapsing-remitting (HCC) Procedures [place] INJECTION, OCRELIZUMAB, 1 MG Esc, Thelma Monzon MD [address] [place] [address] Anc Hem/Onc [place] DEPT CLOSED - 01/28/23 200 [place] [address] Referral ID Status Reason Start Date Expiration Date V isits Requested Visits Authorized [id number] Authorized 12/12/2023 12/11/2024 2 9 Encounter Details Date Type Department Care Team (Latest Contact Info) Description 12/26/2023 9:30 AM EDT Hem/Onc Treatment Hematology/Oncology Treatment, [place] 200 [place] [address] Multiple sclerosis, relapsing-remitting (HCC)* Allergies No known active allergiesdocumented as of this encounter (statuses as of 12/30/2023) Medications Medication Sig Dispensed Refills Start Date End Date Status MEDICAL INSTRUCTIONSIndicatio ns:Multiple sclerosis (HCC) Use as directed. Maintain access [...] 05/13/2022 Active Clindamycin Phosphate 1 % External SolutionIndications:F olliculitis Apply topically to affected area 2 times a day. To affected area of skin. 60 mL 5 09/19/2022 Active Continuation of patient use of medical marijuana is approved Use as directed. Active Ondansetron 4 MG Oral Tablet Disintegrating (Zofran) Place 1 Tablet on tongue daily as needed for Nausea. dissolve on tongue. 90 Tablet 3 03/11/2023 Active Fluticasone Propionate 50 MCG/ACT Nasal Suspension (Flonase)Indications: Sinus pressure Administer 2 Sprays into each nostril in the morning. 16 g 2 04/24/2023 Active LORazepam 0.5 MG Oral Tablet (Ativan) Take 1 tablet by mouth 30 minutes before MRI. If needed, you can take an additional tablet right before your MRI. Do not drive on this medication. 2 Tablet 04/28/2023 Active Albuterol Sulfate HFA 108 (90 Base) MCG/ACT Inhalation Aerosol SolutionIndications:B ronchitis, complicated Inhale 2 Puffs by mouth every [...] 0.1 % Nasal Solution (Astelin) Administer 1 [place] into nostril in the morning and 1 [place] before bedtime. 30 mL 12 08/22/2023 Active Vitamin D3 125 MCG (5000 UT) [...] Semaglutide(0.25 or 0.5MG/DOS) 2 MG/3ML Solution Pen-injector (Chaordix) Inject 0.5 mg under the skin once a week. 9 mL 1 12/09/2023 Active Hospital, Clinic, or Other Facility Administered Medication Ordered Dose Route Frequency Start Date End Date Status Albuterol Sulfate (Proventil) (2.5 MG/3ML) 0.083% inhalation solution 2.5 mgIndications:Sinus pressure 2.5 mg NEBULIZER ONCE PRN 04/24/2023 04/23/2024 Active documented as of this encounter (statuses as of 12/30/2023) Active Problems Problem Noted Date Diagnosed Date Wheezing 04/08/2023 Chronic frontal sinusitis 04/08/2023 Dermoid cyst of right ovary 04/12/2021 Migraine with aura and witho ut status migrainosus, not intractable 08/03/2018 Obesity, Class II, BMI 35-39.9, isolated (see ac tual BMI) 02/07/2017 Multiple sclerosis, relapsing-remitting 02/08/20 17 Vitamin D deficiency 02/03/2017 documented as of this encounter (statuses as of 12/30/2023) Resolved Problems Problem Noted Date Diagnosed Date Resolved Date Food insecurity 02/26/2021 09/26/2022 Overview: Per [facility] Protocol Sudden visual loss of left eye 01/28/2017 02/07/2017 Obesity, pediatric, BMI 95th to 98th percentile for age 0407/07/2014 02/07/2017 Depression 07/07/2014 02/07/2017 Deliberate self-cutting 07/07/201401/16 documented as of this encounter (statuses as of 12/30/2023) Immunizations Name Administration Dates Next Due DTaP [...] Contact Info) Description 01/06/2024 2:20 PM EDT Office Visit [facility] [address] [phone] Jalyn Sommer DO [address] [place] [address] 02/06/2024 10:00 AM EST [facility] [address] [address] Mariah Mandel MD [address] [place] [address] 04/01/2024 12:40 PM EST Office Visit Nutrition & Weight Management, [facility] [place] [address] Nae Cristina PA-C [address] [place] [address] 04/29/2024 3:00 PM EST Telemedicine Neurology [address] [place] [phone] Quyen Palma PA-C [address] [place] [facility] [place] [address] 04/30/2024 9:00 AM EST Laboratory Laboratory [facility] 200 [facility] [place] [phone] [place], Lab [address] [facility] [place] [address] 05/03/2024 7:00 AM EST Pharmacy Neurology [address] [place] [phone] Brittny, Pharmacist Neurology [address] [facility] [place] [phone] 06/25/2024 9:30 AM EDT Hem/Onc Treatment [facility], [place] [facility] [phone] 06/29/2024 8:30 AM EDT Office Visit Family Medicine [address] [place] [phone] Mary Lovell[address] [place] [address] 12/06/2024 2:20 PM EDT [facility] [place] [address] [place] [address] EschThelma MD [address] [place] [address] Health Maintenance Due Date Last Done Comments [...] Maximum of 4 grams (4000 mg) per day. Given 12/26/2023 10:05 AM EDT 650 mg diphenhydrAMINE (Benadryl) inj 50 mg 50 mg, IV Push, ONCE, On Fri12/26/23 at 1015, For 1 dose Given 12/26/2023 10:06 AM EDT 50 mg diphenhydrAMINE (Benadryl) inj 50 mg 50 mg, IV Push, ONCE, On 10/11/24 at 1100, For 1 dose, PRIOR TO INCREASING RATE TO 120mL/hr Given 12/26/2023 11:43 AM EDT 50 mg Hydrocortisone Sod Suc (PF) (Solu-Cortef) inj 100 mg 100 mg, IV Push, ONCE, On Fri12/26/23 at 1100, For 1 dose, PRIOR TO INCREASING RATE TO 120mL/hr Given 12/26/2023 11:46 AM EDT 100 mg methylPREDNISolone sodium succ (SOLU-Medrol) inj 125 mg 125 mg, IV Push, ONCE, On Fri12/26/23 at 1015, For 1 dose Given 12/26/2023 10:09 AM EDT 125 mg NSS infusion 500 mL, Intravenous, at 50 mL/hr, CONTINUOUS, Starting on Fri12/26/23 at 1100, Until Fri12/26/23 at 1559 Start Infusion 12/26/2023 9:58 AM EDT 500 mL 50 mL/hr Ocrelizumab (Ocrevus) 600 mg in NSS 500 mL infusion Intravenous, Administer over 4 Hours, Administer through a 0.22 micron in-line filter Start at a 40 mL/hr Increase by 40 mL/hr every 30 minutes Maximum: 200 mL/hr Duration: 3.5 hours or longer, ONCE, 1 dose, On Fri12/26/23 at 1045, 600 mg Rate Change 12/26/2023 12:53 PM EDT 200 [...] Directives occurred with: Not Discussed Care Teams Wax Room Supervisor Relationship Specialty Start Date End Date Mary Lovell DO [address] [place] [address] [place] [phone] PCP - General Internal Medicine 01/28/17 documented as of this encounter
--- OUTSIDE RECORDS SUMMARY | 2024-04-07 00:44 | External Medical Summary ---
Author Name Unknown Address Unknown Organization K01:LABORATORY [facility] - [address] [place] [address] Laboratory Report Ordering Provider Test Date Status PATRICIA CHAPPELL 10/27/2023 14:46:34 Final Deficient: <20 ng/mL
Ins ufficient: 20-29 ng/mL
Recommended/Optimum:30-50 ng/mL

Vitamin D intoxication is rare. If suspicious of Vitamin D toxicity, evaluation of serum Calcium and PTH is recommended. Observation Date Value Abnormality Reference (Units ) Status 25-OH Vitamin D total 10/27/2023 14:46:34 16 Below low normal >19 (ng/mL) Final Performing Location LAB[facility] - [address] [place] [address]
--- OUTSIDE RECORDS SUMMARY | 2024-04-07 00:44 | External Medical Summary ---
Author Name Unknown Address Unknown Organization K09:[facility]ATORY [place] [address] Laboratory Report Ordering Provider Test Date Status PATRICIA CHAPPELL 10/27/2023 14:46:34 Final Observation Date Value Abnormality Reference (Units ) Status WBC, Total 10/27/2023 14:46:34 10.23 4.00-10.8 0 (K/uL) Final RBC 10/27/2023 14:46:34 5.00 3.85-5.15 (M/uL) Final Hemoglobin 10/27/2023 14:46:34 14.7 12.0-15.3 (g/dL) Final HCT 10/27/2023 14:46:34 43.9 36.0-45.2 (%) Final MCV 10/27/2023 14:46:34 87.8 81.5-97.5 (fL) Final MCH 10/27/2023 14:46:34 29.4 27.0-34.0 (pg) Final MCHC 10/27/2023 14:46:34 33.5 32.0-36.0 (g/dL) Final RDW 10/27/2023 14:46:34 12.9 11.5-15.5 (%) Final Platelets 10/27/2023 14:46:34 334 140-400 (K /uL) Final MPV 10/27/2023 14:46:34 10.3 6.6-11.1 ( fL) Final Performing Location [facility] [place] [address]
--- OUTSIDE RECORDS SUMMARY | 2024-04-07 00:44 | External Medical Summary ---
Author Name Unknown Address Unknown Organization K09:LABORATORY [facility] [address] - [address] [place] [address] Laboratory Report Ordering Provider Test Date Status PATRICIA CHAPPELL 10/27/2023 14:46:34 Final Observation Date Value Abnormality Reference (Units ) Status BUN 10/27/2023 14:46:34 15 6-20 (mg/dL) Final Creatinine 10/27/2023 14:46:34 0.8 0.5-1.0 (mg/dL) Final Glomerular filtration rate/1.73 sq M.predicted [Volume Rate/Area] in Serum, Plasma or Blood by Creatinine-based formula (CKD-EPI) 10/27/2023 14:46:34 >90 >=60 (mL/min) Final eGFR is calculated based on the CKD-EPI 2020 equation. Sodium 10/27/2023 14:46:34 139 135-146 (m mol/L) Final Potassium 10/27/2023 14:46:34 4.5 3.5-5.1 (m mol/L) Final Cl 10/27/2023 14:46:34 103 98-107 (mm ol/L) Final CO2 10/27/2023 14:46:34 24 22-32 (mmo l/L) Final Anion gap 10/27/2023 14:46:34 12 7-15 (mmol /L) Final Glucose 10/27/2023 14:46:34 80 70-120 (mg /dL) Final Albumin 10/27/2023 14:46:34 4.8 3.8-5.0 (g /dL) Final AST (Aspartate aminotransferase) 10/27/2023 14:46:34 9 Below low normal 10-35 (U/L) Final Alk Phos 10/27/2023 14:46:34 84 35-130 (U/ L) Final Bilirubin, Total 10/27/2023 14:46:34 0.3 <=1 .2 (mg/dL) Final Calcium 10/27/2023 14:46:34 9.6 8.4-10.2 ( mg/dL) Final Protein 10/27/2023 14:46:34 7.0 6.0-8.3 (g /dL) Final ALT (Alanine aminotransferase) 10/27/2023 14:46:34 10 10-35 (U/L) Ethan james Performing Location LAB[facility]ATORY [facility] [address] [place] [address]
--- OUTSIDE RECORDS SUMMARY | 2024-04-07 00:44 | External Medical Summary | Summary of Care ---
Author Name Unknown Organization [facility] Address [address] [place] [address] Phone [phone] Care Team Providers Care Fitness Consultant Name Role Phone Mary Lovell Primary Care Provider Reason for Visit * Reason Comments Infusion Ocrelizumab * Episode Based Medications (Routine) - Authorized Specialty Diagnoses / Procedures Referred By Eleno t Referred To Contact Diagnoses Multiple sclerosis, relapsing-remitting (HCC) Procedures PA INJECTION, OCRELIZUMAB, 1 MG Esc, Thelma Monzon MD [address] [place] [address] Anc Hem/Onc Ina Hood DEPT CLOSED - 01/28/23 [address] [place] [address] Referral ID Status Reason Start Date Expiration Date V isits Requested Visits Authorized [id number] Authorized 12/12/2023 12/11/2024 2 9 Encounter Details Date Type Department Care Team (Latest Contact Info) Description 12/26/2023 9:30 AM EDT Hem/Onc Treatment Hematology/Oncology Treatment, [place] 200 [facility] [place] [address] Multiple sclerosis, relapsing-remitting (HCC)* Allergies No known active allergiesdocumented as of this encounter (statuses as of 12/26/2023) Medications Medication Sig Dispensed Refills Start Date [...] 0.1 % Nasal Solution (Astelin) Administer 1 Rebuck into nostril in the morning and 1 Rebuck before bedtime. 30 mL 12 08/22/2023 Active [...] Semaglutide(0.25 or 0.5MG/DOS) 2 MG/3ML Solution Pen-injector (Madvenue) Inject 0.5 mg under the skin once a week. 9 mL 1 12/09/2023 Active Hospital, Clinic, or Other Facility Administered Medication Ordered Dose Route Frequency Start Date End Date Status Albuterol Sulfate (Proventil) (2.5 MG/3ML) 0.083% inhalation solution 2.5 mgIndications:Sinus pressure 2.5 mg NEBULIZER ONCE PRN 04/24/2023 04/23/2024 Active documented as of this encounter (statuses as of 12/26/2023) Active Problems Problem Noted Date Diagnosed Date Wheezing 04/08/2023 Chronic frontal sinusitis 04/08/2023 Dermoid cyst of right ovary 04/12/2021 Migraine with aura and witho ut status migrainosus, not intractable 08/03/2018 Obesity, Class II, BMI 35-39.9, isolated (see ac tual BMI) 02/07/2017 Multiple sclerosis, relapsing-remitting 02/08/20 17 Vitamin D deficiency 02/03/2017 documented as of this encounter (statuses as of 12/26/2023) Resolved Problems Problem Noted Date Diagnosed Date Resolved Date Food insecurity 02/26/2021 09/26/2022 Overview: Per [facility] Protocol Sudden visual loss of left eye 01/28/2017 02/07/2017 Obesity, pediatric, BMI 95th to 98th percentile for age 0407/07/2014 02/07/2017 Depression 07/07/2014 02/07/2017 Deliberate self-cutting 07/07/201401/16 documented as of this encounter (statuses as of 12/26/2023) Immunizations Name Administration Dates Next Due DTaP [...] No 09/18/2022 Does the household have a [facility] source of income? (Household - for ages [...] PM EDT Office Visit Sleep Disorders Ctr [facility] [address] [phone] Jalyn Sommer DO [address] [address] 02/06/2024 10:00 AM EST Telemedicine Otolaryngology [facility] [address] [address] Mariah Mandel MD [address] [place] [address] 04/01/2024 12:40 PM EST Office Visit Nutrition & Weight Management, [facility] [address] [address] Nae Cristina PA-C [address] [place] [address] 04/29/2024 3:00 PM EST Telemedicine Neurology [address] [place] [phone] Quyen Palma PA-C [address] [place] [facility] [place] [address] 04/30/2024 9:00 AM EST Laboratory Laboratory [facility] [place] [address] [facility] [place] [phone] [facility] Lab [facility] 200 [facility] [place] [address] 05/03/2024 7:00 AM EST Pharmacy Neurology [address] [place] [phone] Brittny, Pharmacist Neurology [address] [place] [address] 06/25/2024 9:30 AM EDT Hem/Onc Treatment Hematology/Oncology Treatment, [place] [address] [facility] [address] [place] [phone] 06/29/2024 8:30 AM EDT Office Visit Family Medicine [address] [phone] [address] [place] [address] 12/06/2024 2:20 PM EDT Office Visit Neurology [facility] [place] [address] [facility] [place] [address] Thelma [facility]o MD [address] [facility] [address] Health Maintenance Due Date Last Done Comments [...] sclerosis documented in this encounter Administered Medications Active Administered Medications - up to 3 most recent administrations Medication Order MAR Action Action Date Dose Rate Site diphenhydrAMINE (Benadryl) inj 50 mg 50 mg, IV Push, ONCE PRN Other, Hypersensitivity Reaction, Starting on Fri12/26/23 at 0949, Until 12/27/23 at 0948, For 24 hours EPINEPHrine 1 MG/ML inj 0.3 mg 0.3 mg, Intramuscular, ONCE PRN Other, Hypersensitivity Reaction or Anaphylaxis, Starting on Fri12/26/23 at 0949, Until 12/27/23 at 0948, For 24 hours hEParin 100 UNIT/ML Lock Flush inj 500 Units 500 Units (5 mL), IV Lock, PRN Other, IV Flush, Starting on Fri12/26/23 at 0949, Until 12/27/23 at 0948, For 24 hours, Do not flush if lock, PICC, or central line not in place; IV infusing or unable to flush. Hydrocortisone Sod Suc (PF) (Solu-Cortef) inj 100 mg 100 mg, IV Push, ONCE PRN Other, Hypersensitivity Reaction, Starting on Fri12/26/23 at 0949, Until 12/27/23 at 0948, For 24 hours NSS infusion 500 mL, Intravenous, at 50 mL/hr, CONTINUOUS, Starting on Fri12/26/23 at 1100, Until Fri12/26/23 at 1559 Start Infusion 12/26/2023 9:58 AM EDT 500 mL 50 mL/hr sodium chloride 0.9 % flush central line 10 mL 10 mL, IV Push, PRN Other, IV Flush, Starting on Fri12/26/23 at 0949, Until Fri12/27/23 at 0948, For 24 hours, Do not flush if lock, PICC, or central line not in place; IV infusing or unable to flush. Inactive Administered Medications - up to 3 [...] Given 12/26/2023 10:09 AM EDT 125 mg Ocrelizumab (Ocrevus) 600 mg in NSS 500 [...] Directives occurred with: Not Discussed Care Teams Fitness Consultant Relationship Specialty Start Date End Date Mary Lovell DO [address] [place] [address] [place] [phone] PCP - General Internal Medicine 01/28/17 documented as of this encounter
--- OUTSIDE RECORDS SUMMARY | 2024-04-07 00:44 | External Medical Summary | Summary of Care ---
Author Name Unknown Organization [facility] Address [address] [place] [address] Phone [phone] Care Team Providers Care Back Strip Machine Operator Name Role Phone Mary Lovell Primary Care Provider [phone] Encounter Details Date Type Department Care Team (Late st Contact Info) Description 12/01/2023 Orders Only Outcomes Research Department [address] [place], [place] [phone] Carey Akins CHRA [employer] Other*[id number] Allergies No known active allergiesdocumented as of this encounter (statuses as of 12/01/2023) Medications Medication Sig Dispensed Refills Start Date [...] 0.1 % Nasal Solution (Astelin) Administer 1 [place] into nostril in the morning and 1 [place] before bedtime. 30 mL 12 08/22/2023 Active Ozempic (0.25 or 0.5 MG/DOSE) 2 MG/3ML Solution Pen-injector (Semaglutide(0.25 or 0.5MG/DOS)) Inject 0.5 mg under the skin once a week. 3 mL 2 10/06/2023 Active Vitamin D3 125 MCG (5000 UT) [...] a day 5 mL 3 11/24/2023 Active Hospital, Clinic, or Other Facility Administered Medication Ordered Dose Route Frequency Start Date End Date Status Albuterol Sulfate (Proventil) (2.5 MG/3ML) 0.083% inhalation solution 2.5 mgIndications:Sinus pressure 2.5 mg NEBULIZER ONCE PRN 04/24/2023 04/23/2024 Active documented as of this encounter (statuses as of 12/01/2023) Active Problems Problem Noted Date Diagnosed Date Wheezing 04/08/2023 Chronic frontal sinusitis 04/08/2023 Dermoid cyst of right ovary 04/12/2021 Migraine with aura and witho ut status migrainosus, not intractable 08/03/2018 Obesity, Class II, BMI 35-39.9, isolated (see ac tual BMI) 02/07/2017 Multiple sclerosis, relapsing-remitting 02/08/20 17 Vitamin D deficiency 02/03/2017 documented as of this encounter (statuses as of 12/01/2023) Resolved Problems Problem Noted Date Diagnosed Date Resolved Date Food insecurity 02/26/2021 09/26/2022 Overview: Per [facility] Protocol Sudden visual loss of left eye 01/28/2017 02/07/2017 Obesity, pediatric, BMI 95th to 98th percentile for age 0407/07/2014 02/07/2017 Depression 07/07/2014 02/07/2017 Deliberate self-cutting 07/07/201401/16 documented as of this encounter (statuses as of 12/01/2023) Immunizations Name Administration Dates Next Due DTaP Dipth/Tet/Acell Pertussis (Infanrix), Peds 04/07/2003,09/13/1999 HPV Vaccine, 4-Valent 07/07/2014,07/02/2011,12/16 Hepatitis A, Ped/Adol., 18 y ear and below, 2-Dose 07/07/2014,03/31/2007 Hepatitis B, 20+ yrs 02/03/2019 MMR - Measles/Mumps/Rubella Vaccine 04/07/2003 Meningococcal Conjugate Vacc ine (Menactra/Menveo) 07/10/2015,01/04/2011 Seasonal Influenza, PF, 6 M & above, IM , (FluLaval or Fluzone) 01/19/2020,02/03/2019,01/05/2018,01/27 Seasonal Influenza, Quadriva lent, No Preserve, IM 01/31/2015 Seasonal Influenza, Trivalen t, (IIV3), with Preserv, (Fluzone) 01/01/2014,01/28/2013,02/24/2012,01/30,01/03/2009 TDAP (age 10 and older)(Boostrix) 07/10/2015 TDAP, [...] Care Team (Late st Contact Info) Description 12/09/2023 2:20 PM EDT Office Visit Nutrition & Weight Management, [facility] [address] [address] Na Gutiérrez PA-C [address] [address] 12/11/2023 2:20 PM EDT Office Visit Sleep Disorders Ctr [facility] [address] [phone] Jalyn Sommer DO [address] [address] 12/26/2023 9:30 AM EDT Hem/Onc Treatment Hematology/Oncology Treatment, [place] [address] [place] [phone] 02/06/2024 10:00 AM EST Telemedicine Otolaryngology [facility] [address] [address] Mariah Mandel MD [address] [address] 04/29/2024 3:00 PM EST Telemedicine Neurology [address] [place] [phone] Quyen Palma PA-C [address] [place] [phone] 04/30/2024 9:00 AM EST Laboratory Laboratory [facility] [address] [place] [phone] [place], Lab [facility] 200 [facility] [place] [address] 05/03/2024 7:00 AM EST Pharmacy Neurology [address] [place] [phone] Brittny, Pharmacist Neurology [address] [place] [address] 06/29/2024 8:30 AM EDT Office Visit Family Medicine [address] [phone] [address] [place] [address] 12/06/2024 2:20 PM EDT Office Visit Neurology [facility] [place] [address] [place] [address] Thelma Villatoro MD [address] [place], [place] [phone] Scheduled Orders Name Type Priority Associated Diagnoses Orde r Schedule MYCODE SUBSEQUENT ADULT Lab Routine [facility] Other*[id number] Every 6 Months for 2 Occurrences starting 12/01/2023 until 12/20/2024 Health Maintenance Due Date Last Done Comments [...] as of this encounter Visit Diagnoses Diagnosis [facility] Other*[id number] documented in this encounter Advance Directives * Full Code (Latest Code Status on File) Date Activated Date Inactivated Comments 10/13/2020 10:06 AM 10/13/2020 9:06 PM This order reflects the patients wishes and were consensually agreed upon. Question Answer Comments Discussion of Advance Directives occurred with: Not Discussed Care Teams Back Strip Machine Operator Relationship Specialty Start Date End Date Mary Lovell DO [address] [place] [address] [place] [address] PCP - General Internal Medicine 01/28/17 documented as of this encounter
--- OUTSIDE RECORDS SUMMARY | 2024-04-07 00:44 | External Medical Summary | Summary of Care ---
Author Name Unknown Organization [facility] Address [address] [place] [address] Phone [phone] Care Team Providers Care Project Drilling Engineer Name Role Phone Mary Lovell Primary Care Provider Reason for Visit * Reason Comments Dosage Adjustment Via Phone (anticoag Cl inic) Encounter Details Date Type Department Care Team (Late st Contact Info) Description 10/31/2023 7:00 AM EDT Pharmacy Neurology [facility] [address] [address] [place] [phone] [place], Pharmacist Neurology [address] [place] [address] Multiple sclerosis, relapsing-remitting (HCC)* Allergies No known active allergiesdocumented as of this encounter (statuses as of 10/31/2023) Medications Medication Sig Dispensed Refills Start Date End Date Status MEDICAL INSTRUCTIONSIndicat ions:Multiple sclerosis (HCC) Use as directed. Maintain access [...] 05/13/2022 Active Clindamycin Phosphate 1 % External SolutionIndications :Folliculitis Apply topically to affected area 2 times a day. To affected area of skin. 60 mL 5 09/19/2022 Active Continuation of patient use of medical marijuana is approved Use as directed. Active Ondansetron 4 MG Oral Tablet Disintegrating (Zofran) Place 1 Tablet on tongue daily as needed for Nausea. dissolve on tongue. 90 Tablet 3 03/11/2023 Active Fluticasone Propionate 50 MCG/ACT Nasal Suspension (Flonase)Indication s:Sinus pressure Administer 2 Sprays into each nostril in the morning. 16 g 2 04/24/2023 Active LORazepam 0.5 MG Oral Tablet (Ativan) Take 1 tablet by mouth 30 minutes before MRI. If needed, you can take an additional tablet right before your MRI. Do not drive on this medication. 2 Tablet 04/28/2023 Active Albuterol Sulfate HFA 108 (90 Base) MCG/ACT Inhalation Aerosol SolutionIndications :Bronchitis, complicated Inhale 2 Puffs by mouth every [...] 0.1 % Nasal Solution (Astelin) Administer 1 [place] into nostril in the morning and 1 [place] before bedtime. 30 mL 12 08/22/2023 Active [...] twice daily. 60 Capsule 5 10/31/2023 Active Vitamin D3 125 MCG (5000 UT) Oral Tablet Take 5,000 units (one tablet) by mouth twice daily x 12 weeks, then decrease to 5,000 units (one tablet) once daily thereafter 168 Tablet 04/28/2023 Discontinue d(Refill) Hospital, Clinic, or Other Facility Administered Medication Ordered Dose Route Frequency Start Date End Date Status Albuterol Sulfate (Proventil) (2.5 MG/3ML) 0.083% inhalation solution 2.5 mgIndications:Sinus pressure 2.5 mg NEBULIZER ONCE PRN 04/24/2023 04/23/2024 Active documented as of this encounter (statuses as of 10/31/2023) Active Problems Problem Noted Date Diagnosed Date Wheezing 04/08/2023 Chronic frontal sinusitis 04/08/2023 Dermoid cyst of right ovary 04/12/2021 Migraine with aura and witho ut status migrainosus, not intractable 08/03/2018 Obesity, Class II, BMI 35-39.9, isolated (see ac tual BMI) 02/07/2017 Multiple sclerosis, relapsing-remitting 02/08/20 17 Vitamin D deficiency 02/03/2017 documented as of this encounter (statuses as of 10/31/2023) Resolved Problems Problem Noted Date Diagnosed Date Resolved Date Food insecurity 02/26/2021 09/26/2022 Overview: [facility] Protocol Sudden visual loss of left eye 01/28/2017 02/07/2017 Obesity, pediatric, BMI 95th to 98th percentile for age 0407/07/2014 02/07/2017 Depression 07/07/2014 02/07/2017 Deliberate self-cutting 07/07/201401/16 documented as of this encounter (statuses as of 10/31/2023) Immunizations Name Administration Dates Next Due DTaP [...] Conjugate Vacci ne, 7 Valent 03/25/2000 Seasonal Influenza, PF, 6 M & above, IM , (FluLaval or Fluzone) 01/19/2020,02/03/2019,01/05/2018,01/27 Seasonal Influenza, Quadriva lent, No Preserve, IM 01/31/2015 Seasonal Influenza, Split, I IV3, With Preserve, Inj 01/01/2014,01/28/2013,02/24/2012,01/30,01/03/2009 TDAP (age 10 and older)(Boostrix) 07/10/2015 [...] as of this encounter Progress Notes * Vonnie Taylor, net software architect - 10/31/2023 2:52 PM EDT Patient instructed to continue current ocrevus dose. Stable results and next lab draw date communicated and scheduled as noted by Pharmacist: yes Advised patient to contact Neurology Clinic if any changes in medication or questions/concerns. Vonnie Taylor net software architect * Genesis Bruno, [facility] - 10/31/2023 8:20 AM EDT Pharmacy Progress Note - Outpatient Neurology Multiple Sclerosis Name: Fidel Baumann Patient Phone Numbers Current Disease Modifying Therapy: Ocrelizumab (Ocrevus) Monitoring Schedule: CBC/D, CMP, vitamin D every 12 months. Patient has been on the Disease Modifying Therapy since February 2019. Disease Modifying Therapy Patient-Reported Adverse Effects: Rituxan, Ocrevus - infusion reactions Previous Disease Modifying Therapies: Glatiramer Acetate (Copaxone, Glatopa) and Natalizumab (Tysabri) Next Neurology Appointment: 04/29/24 Pertinent Lab Results: Kaushik Frank Virus Status: positive (index value 0.51) [12/19/17] Vitamin D: 16 [10/27/23] CBC/D Results: WBC Date/Time Value Ref Range Status 10/27/2023 02:46 PM 10.23 4.00 - 10.80 K/uL Final 08/22/2023 10:07 AM 8.86 4.00 - 10.80 K/uL Final 10/21/2022 08:59 AM 8.26 4.00 - 10.80 K/uL Final 02/05/2020 10:53 AM 8.39 4.00 - 10.80 K/uL Final 09/01/2019 10:56 AM 7.83 4.00 - 10.80 K/uL Final 12/19/2017 12:09 PM 9.48 4.00 - 10.80 K/uL Final No results found for: "ABS. LYMPH" RBC Date/Time Value Ref Range Status 10/27/2023 02:46 PM 5.00 3.85 - 5.15 M/uL Final 08/22/2023 10:07 AM 4.92 3.85 - 5.15 M/uL Final 10/21/2022 08:59 AM 4.63 3.85 - 5.15 M/uL Final 02/05/2020 10:53 AM 4.95 3.85 - 5.15 M/uL Final 09/01/2019 10:56 AM 5.02 3.85 - 5.15 M/uL Final 12/19/2017 12:09 PM 4.82 3.85 - 5.15 M/uL Final HGB Date/Time Value Ref Range Status 10/27/2023 02:46 PM 14.7 12.0 - 15.3 g/dL Final 08/22/2023 10:07 AM 14.4 12.0 - 15.3 g/dL Final 10/21/2022 08:59 AM 13.7 12.0 - 15.3 g/dL Final 10/03/2022 12:00 AM 13.8 12 - 16 GM/DL 08/12/2020 12:00 AM 14.0 12.0 - 16.0 GM/DL 02/05/2020 10:53 AM 15.2 12.0 - 15.3 g/dL Final 09/01/2019 10:56 AM 15.1 12.0 - 15.3 g/dL Final 03/06/2018 12:00 AM 15.0 12.0 - 16.0 G/DL 12/19/2017 12:09 PM 14.5 12.0 - 15.3 g/dL Final HCT Date/Time Value Ref Range Status 10/27/2023 02:46 PM 43.9 36.0 - 45.2 % Final 08/22/2023 10:07 AM 42.3 36.0 - 45.2 % Final 10/21/2022 08:59 AM 42.9 36.0 - 45.2 % Final 02/05/2020 10:53 AM 44.7 36.0 - 45.2 % Final 09/01/2019 10:56 AM 43.2 36.0 - 45.2 % Final 12/19/2017 12:09 PM 42.4 36.0 - 45.2 % Final Liver Function Results: AST - [facility] Date/Time Value Ref Range Status 10/27/2023 02:46 PM 9 (L) 10 - 35 U/L Final 08/22/2023 10:07 AM 10 10 - 35 U/L Final 10/21/2022 08:59 AM 12 10 - 35 U/L Final 02/05/2020 10:53 AM 11 10 - 35 U/L Final 09/01/2019 10:56 AM 34 10 - 35 U/L Final 01/25/2019 01:51 PM 14 10 - 35 U/L Final ALT - [facility] Date/Time Value Ref Range Status 10/27/2023 02:46 PM 10 10 - 35 U/L Final 08/22/2023 10:07 AM 12 10 - 35 U/L Final 10/21/2022 08:59 AM 19 10 - 35 U/L Final 02/05/2020 10:53 AM 17 10 - 35 U/L Final 09/01/2019 10:56 AM 48 (H) 10 - 35 U/L Final 01/25/2019 01:51 PM 12 10 - 35 U/L Final ALKALINE PHOSPHATASE - [facility] Date/Time Value Ref Range Status 10/27/2023 02:46 PM 84 35 - 130 U/L Final 08/22/2023 10:07 AM 78 35 - 130 U/L Final 10/21/2022 08:59 AM 80 35 - 130 U/L Final 02/05/2020 10:53 AM 81 0 - 153 U/L Final 09/01/2019 10:56 AM 75 0 - 153 U/L Final 01/25/2019 01:51 PM 70 0 - 153 U/L Final BILIRUBIN, DIRECT - [facility] Date/Time Value Ref Range Status 09/08/2020 02:11 PM <0.2 0.0 - 0.3 mg/dL Final BILIRUBIN, TOTAL - [facility] Date/Time Value Ref Range Status 10/27/2023 02:46 PM 0.3 <=1.2 mg/dL Final 08/22/2023 10:07 AM 0.2 <=1.2 mg/dL Final 10/21/2022 08:59 AM 0.4 <=1.2 mg/dL Final 02/05/2020 10:53 AM 0.4 0 - 1.2 mg/dL Final 09/01/2019 10:56 AM 0.9 0 - 1.2 mg/dL Final 01/25/2019 01:51 PM 0.2 0 - 1.2 mg/dL Final ASSESSMENT & PLAN: Labs completed for Ocrelizumab (Ocrevus). Sent MyPressgramer Message with the results. Results: CBC/D - WBC 10.23/ ALC 1.61 - normal CMP - AST/ALT normal Vitamin D - low (16) - patient stated that Dr. Villatoro had started her on vitamin D her last appointment, but she has not picked it up in awhile. Wrote new script and sent MyG to patient regarding dosing. Patient will be due for CBC/D, CMP, and vitamin D in 6 months. Patient will call clinic in the meantime with any questions and/or concerns. Follow Up: 6 months for lab results Genesis Bruno [facility] Clinical Pharmacist, Neurology Medication Therapy Disease Management 10/31/2023, 8:20 AM documented in this encounter Plan of Treatment Upcoming Encounters Date Type Department Care Team (Late st Contact Info) Description 11/14/2023 10:30 AM EDT Telemedicine Otolaryngology [facility] [address] [address] Mariah Mandel MD [address] [address] 12/09/2023 2:20 PM EDT Office Visit Nutrition & Weight Management, [facility] [address] [address] Na Gutiérrez PA-C [address] [address] 12/11/2023 2:20 PM EDT Office Visit Sleep Disorders Ctr [facility] [address] [phone] Jalyn Sommer DO [address] [address] 12/26/2023 9:30 AM EDT Hem/Onc Treatment Hematology/Oncology Treatment, [place] [address] [place] [phone] 04/29/2024 3:00 PM EST Telemedicine Neurology [place] [phone] Quyen Palma PA-C [address] [place] [address] 06/29/2024 8:30 AM EDT Office Visit Family Medicine [address] [place] [phone] Mary [address] [place] [address] 12/06/2024 2:20 PM EDT Office Visit [facility] [address] Thelma Villatoro MD [address] [place] [address] Scheduled Orders Name Type Priority Associated Diagnoses Orde r Schedule 25-HYDROXY VITAMIN D Lab Routine Multiple sclerosis, relapsing-remitting (HCC) Expected: 05/02/2024 (Approximate), Expires: 10/30/2024 COMPREHENSIVE METABOLIC PANEL Lab Routine Multiple sclerosis, relapsing-remitting (HCC) Expected: 05/02/2024 (Approximate), Expires: 10/30/2024 CBC WITH WBC DIFFERENTIAL Lab Routine Multiple sclerosis, relapsing-remitting (HCC) Expected: 05/02/2024 (Approximate), Expires: 10/30/2024 Health Maintenance Due Date Last Done Comments COVID-19 Vaccine (#1) 2003 Pneumococcal Vaccine: Pediat rics (0 to 5 Years) and At-Risk Patients (6 to 64 Years) (1 of 2 - PCV) 2004 Depression Screening 02/04/2020 02/03/2019 Influenza Vaccine (FLU shot) (#1) 2023 01/19/2020, 02/03/2019, 01/05/2018, Additional history exists Pap Smear 05/09/2024 05/09/2021 DTaP,Tdap,and Td Vaccines (8 - Td or Tdap) 07/09/2025 07/10/2015, 01/04/2011, 04/07/2003, Additional history [...] Primary Multiple sclerosis documented in this encounter Advance Directives * Full Code (Latest Code Status on File) Date Activated Date Inactivated Comments 10/13/2020 10:06 AM 10/13/2020 9:06 PM This order reflects the patients wishes and were consensually agreed upon. Question Answer Comments Discussion of Advance Directives occurred with: Not Discussed Care Teams Project Drilling Engineer Relationship Specialty Start Date End Date Mary Lovell DO [address] [place] [address] [place] [address] PCP - General Internal Medicine 01/28/17 documented as of this encounter
--- OUTSIDE RECORDS SUMMARY | 2024-04-07 00:44 | External Medical Summary ---
Author Name Unknown Address Unknown Organization K09[facility] [place] [address] Laboratory Report Ordering Provider Test Date Status PATRICIA CHAPPELL 10/27/2023 14:46:34 Final Observation Date Value Abnormality Reference (Units ) Status SYNC LEUKOCYTES IN BLOOD BY AUTOMATED COUNT 10/27/2023 14:46:34 10.23 4.00-10.80 (K/uL) Final Segs 10/27/2023 14:46:34 73.9 40.0-75.0 (%) Final Lymphs % 10/27/2023 14:46:34 15.7 Below low normal 18.0-42.0 (%) Final Monos 10/27/2023 14:46:34 7.5 1.0-11.0 (%) Final Eosinophils 10/27/2023 14:46:34 2.6 0.0-6.0 (%) Final Basos 10/27/2023 14:46:34 0.3 0.0-2.0 (%) Final Absolute Segs 10/27/2023 14:46:34 7.55 1.80-7.70 (K/uL) Final Lymphs, absolute 10/27/2023 14:46:34 1.61 1.00-4.80 (K/ul) Final Monos, Abs 10/27/2023 14:46:34 0.77 0.00-1.10 (K/uL) Final Eos, Abs 10/27/2023 14:46:34 0.27 0.00-0.70 (K/uL) Final Basos, Abs 10/27/2023 14:46:34 0.03 0.00-0.20 (K/uL) Final Performing Location [facility] [place] [address]
--- OUTSIDE RECORDS SUMMARY | 2024-04-07 00:44 | External Medical Summary | Summary of Care ---
Author Name Unknown Organization [facility] Address [address] [place] [address] Phone [phone] Care Team Providers Care Safe And Vault Installer Name Role Phone Mary Lovell Primary Care Provider Encounter Details Date Type Department Care Team (Late st Contact Info) Description 12/09/2023 2:20 PM EDT Telemedicine Nutrition & Weight Management, [facility] [address] [place] [address] Na Gutiérrez PA-C [address] [place] [address] Class 1 obesity due to excess calories without serious comorbidity with body mass index (BMI) of 34.0 to 34.9 in adult*; Abnormal weight gain; Migraine with aura and without status migrainosus, not intractable; Multiple sclerosis, relapsing-remitting (HCC) Allergies No known active allergiesdocumented as of this encounter (statuses as of 12/09/2023) Medications Medication Sig Dispensed Refills Start Date End Date Status MEDICAL INSTRUCTIONSIndicat ions:Multiple sclerosis (HCC) Use as directed. Maintain access for on going med therapy may D/C after last dose 1 Each N/A 8 Active Ocrevus 300 MG/10ML Intravenous Solution (Ocrelizumab) Administer 600mg once every 6 months. 20 mL 2 1 Active Rizatriptan Benzoate 10 MG Oral Tablet Disintegrating Take 1 Tablet by mouth as needed for Migraine. May repeat in 2 hours if needed 10 Tablet 3 Active Clindamycin Phosphate 1 % External SolutionIndications :Folliculitis Apply topically to affected area 2 times a day. To affected area of skin. 60 mL 5 3 Active Continuation of patient use of medical marijuana is approved Use as directed. Active Ondansetron 4 MG Oral Tablet Disintegrating (Zofran) Place 1 Tablet on tongue daily as needed for Nausea. dissolve on tongue. 90 Tablet 3 3 Active Fluticasone Propionate 50 MCG/ACT Nasal Suspension (Flonase)Indication s:Sinus pressure Administer 2 Sprays into each nostril in the morning. 16 g 2 4 Active LORazepam 0.5 MG Oral Tablet (Ativan) Take 1 tablet by mouth 30 minutes before MRI. If needed, you can take an additional tablet right before your MRI. Do not drive on this medication. 2 Tablet 4 Active Albuterol Sulfate HFA 108 (90 Base) MCG/ACT Inhalation Aerosol SolutionIndications :Bronchitis, complicated Inhale 2 Puffs by mouth every 4 hours as needed for Wheezing or Cough. 18 g 3 4 Active Pantoprazole Sodium 40 MG Oral Tablet Delayed Release (Protonix) Take 1 Tablet by mouth in the morning. 30 minutes before the first meal of the day. Do not crush, split or chew the tablet. 90 Tablet 1 4 Active Budesonide 0.5 MG/2ML Inhalation Suspension (Pulmicort) As directed in nasal saline rinse twice a day 120 mL 12 4 Active Azelastine HCl 0.1 % Nasal Solution (Astelin) Administer 1 Avalon into nostril in the morning and 1 Avalon before bedtime. 30 mL 12 4 Active Vitamin D3 125 MCG (5000 UT) Oral Tablet Take 5,000 units (one tablet) by mouth twice daily x 12 weeks, then decrease to 5,000 units (one tablet) once daily thereafter 168 Tablet 4 Active Vitamin D3 50 MCG (2000 UT) Oral Capsule Take 2 Capsules by mouth in the morning. After completing 12 weeks of the 5000 units twice daily. 60 Capsule 5 4 Active dexAMETHasone 0.1 % Ophthalmic Suspension 4 drops in saline rinse twice a day 5 mL 3 4 Active Semaglutide(0.25 or 0.5MG/DOS) 2 MG/3ML Solution Pen-injector (Ozempic) Inject 0.5 mg under the skin once a week. 9 mL 1 4 Active Ozempic (0.25 or 0.5 MG/DOSE) 2 MG/3ML Solution Pen-injector (Semaglutide(0.25 or 0.5MG/DOS)) Inject 0.5 mg under the skin once a week. 3 mL 2 4 12/09/19 24 Discontinued Hospital, Clinic, or Other Facility Administered Medication Ordered Dose Route Frequency Start Date End Date Status Albuterol Sulfate (Proventil) (2.5 MG/3ML) 0.083% inhalation solution 2.5 mgIndications:Sinus pressure 2.5 mg NEBULIZER ONCE PRN 04/24/2023 04/23/2024 Active documented as of this encounter (statuses as of 12/09/2023) Active Problems Problem Noted Date Diagnosed Date Wheezing 04/08/2023 Chronic frontal sinusitis 04/08/2023 Dermoid cyst of right ovary 04/12/2021 Migraine with aura and witho ut status migrainosus, not intractable 08/03/2018 Obesity, Class II, BMI 35-39.9, isolated (see ac tual BMI) 02/07/2017 Multiple sclerosis, relapsing-remitting 02/08/20 17 Vitamin D deficiency 02/03/2017 documented as of this encounter (statuses as of 12/09/2023) Resolved Problems Problem Noted Date Diagnosed Date Resolved Date Food insecurity 02/26/2021 09/26/2022 Overview: Per [facility] Protocol Sudden visual loss of left eye 01/28/2017 02/07/2017 Obesity, pediatric, BMI 95th to 98th percentile for age 0407/07/2014 02/07/2017 Depression 07/07/2014 02/07/2017 Deliberate self-cutting 07/07/201401/16 documented as of this encounter (statuses as of 12/09/2023) Immunizations Name Administration Dates Next Due DTaP [...] No 09/18/2022 Does the household have a [facility] source of income? (Household - for ages [...] as of this encounter Progress Notes * Na Gutiérrez PA-C - 12/09/2023 2:38 PM EDT [facility] Referring Physician: Gabriela Daigle PA-C There are no exam notes on file for this visit. Fidel Baumann is a 23 year old patient who [facility]. - Initial clinic visit 06/03/2023 Weight 253 lbs Height 69.69" There is no height or weight on file to calculate BMI. Weight today 217 pounds Weight has decreased -36 pounds since initial visit (14% body weight loss) Wt Readings from Last 6 Encounters: 10/27/23 103 kg (227 lb 1.6 oz) 09/03/23 106.6 kg (235 lb) 08/22/23 109.3 kg (241 lb) 06/03/23 114.9 kg (253 lb 3.2 oz) 04/28/23 116.1 kg (256 lb) 04/25/23 115.1 kg (253 lb 12 oz) HPI: 12/09/2023 -telemedicine follow up -ozempic 0.5mg weekly -weight today 217 09/03/23 -Initial RD visit. -Stays away from higher in sugar, can feel nauseous: can experience in has a brownie, or regular sugar -Has improved snacking, "lost all ambition to snack" -Noticing a decrease in appetite -Has made great diet changes, doing really well Visit 06/03/23 The patient suffers from Class II obesity Patient is interested in the following treatment options for obesity: possible medication use. Previous Weight Management Interventions: The patient has tried weight loss in the past without significant halfway success. Previous interventions: Self-directed. The patient denies any past pharmacotherapy for weight loss . Works out daily Changed her diet-- oatmeal and chicken Current Diet: Describes typical diet history/24 hr recall Breakfast: protein shake or smoothie or yogurt Snacks: Lunch:depends on the day-- chicken salad -- 647 Snacks: trying not to snack-- maybe fruit Dinner: chicken, broccoli, carrots, vegetables, sometimes pizza Snacks: chocolate milk Drinks: water and diet zero sugar, dr house Restaurant meals: twice a week Activity: Daily-- infinity hoop, step Riding exercise bike Past Medical History Glaucoma No Hypertension: No CAD: No Congestive heart failure No Dyslipidemia: No Lipid Panel Results: Results for orders placed or performed in visit on 07/10/15 LIPID PANEL Result Value Ref Range HOURS FASTING PATIENT NOT FASTING hours Triglycerides 156 <200 mg/dL Cholesterol 157 <170 mg/dL HDL Cholesterol 33 (L) >34 mg/dL Cholesterol-HDL Ratio 4.8 LDL Cholesterol 93 0 - 129 mg/dL DVT/PE, clotting disorder: No Stroke: No Seizures: No Sleep Apnea: No Asthma: Yes COPD: No Patient denies personal or family history of medullary thyroid carcinoma. Patient denies personal or family history of multiple endocrine neoplasia syndrome type II Patient denies personal history of pancreatitis Fatty Liver: no Diabetes: No Hemoglobin A1C last 3 results: No results found for: "HEM" Insulin Resistance: No PCOS: No GERD: Yes: Requiring medications: Yes History of nephrolithiasis: No. Osteoarthritis: No Anxiety/Depression: Yes Patient Active Problem List Diagnosis Vitamin D deficiency Obesity, Class II, BMI 35-39.9, isolated (see actual BMI) Multiple sclerosis, relapsing-remitting (HCC) Migraine with aura and without status migrainosus, not intractable Dermoid cyst of right ovary Wheezing Chronic frontal sinusitis Past Surgical History: Procedure Laterality Date DENTAL SURGERY PROCEDURE NEC EGD, W/ENDOSCOPIC US 09/28/2020 normal EGD /biopsies small intestine & stomach were within normal limits / EUS multi stones in gallbladder / no specimens collected / ESOPHAGOGASTRODUODENOSCOPY (EGD), FLEXIBLE, TRANSORAL, ENDOSCOPIC ULTRASOUND performed by Prosper Caba DO at [facility]; CHOLECYSTECTOMY N/A 10/13/2020 LAPAROSCOPIC CHOLECYSTECTOMY performed by Carrillo Nguyễn MD at OR [facility] LUMBAR PUNCTURE 2016 Review of patient's allergies indicates: No Known Allergies Current Outpatient Medications Medication Sig Dispense Refill MEDICAL INSTRUCTIONS Use as directed. Maintain access for on going med therapy may D/C after last dose 1 Each N/A Ocrevus 300 MG/10ML Intravenous Solution (Ocrelizumab) Administer 600mg once every 6 months. 20 mL 2 Rizatriptan Benzoate 10 MG Oral Tablet Disintegrating Take 1 Tablet by mouth as needed for Migraine. May repeat in 2 hours if needed 10 Tablet 0 Clindamycin Phosphate 1 % External Solution Apply topically to affected area 2 times a day. To affected area of skin. 60 mL 5 Continuation of patient use of medical marijuana is approved Use as directed. Ondansetron 4 MG Oral Tablet Disintegrating (Zofran) Place 1 Tablet on tongue daily as needed for Nausea. dissolve on tongue. 90 Tablet 3 Fluticasone Propionate 50 MCG/ACT Nasal Suspension (Flonase) Administer 2 Sprays into each nostril in the morning. 16 g 2 LORazepam 0.5 MG Oral Tablet (Ativan) Take 1 tablet by mouth 30 minutes before MRI. If needed, you can take an additional tablet right before your MRI. Do not drive on this medication. 2 Tablet 0 Albuterol Sulfate HFA 108 (90 Base) MCG/ACT Inhalation Aerosol Solution Inhale 2 Puffs by mouth every 4 hours as needed for Wheezing or Cough. 18 g 3 Pantoprazole Sodium 40 MG Oral Tablet Delayed Release (Protonix) Take 1 Tablet by mouth in the morning. 30 minutes before the first meal of the day. Do not crush, split or chew the tablet. 90 Tablet 1 Budesonide 0.5 MG/2ML Inhalation Suspension (Pulmicort) As directed in nasal saline rinse twice a day 120 mL 12 Azelastine HCl 0.1 % Nasal Solution (Astelin) Administer 1 Avalon into nostril in the morning and 1 Avalon before bedtime. 30 mL 12 Ozempic (0.25 or 0.5 MG/DOSE) 2 MG/3ML Solution Pen-injector (Semaglutide(0.25 or 0.5MG/DOS)) Inject 0.5 mg under the skin once a week. 3 mL 2 Vitamin D3 125 MCG (5000 UT) Oral Tablet Take 5,000 units (one tablet) by mouth twice daily x 12 weeks, then decrease to 5,000 units (one tablet) once daily thereafter 168 Tablet 0 Vitamin D3 50 MCG (2000 UT) Oral Capsule Take 2 Capsules by mouth in the morning. After completing 12 weeks of the 5000 units twice daily. 60 Capsule 5 dexAMETHasone 0.1 % Ophthalmic Suspension 4 drops in saline rinse twice a day 5 mL 3 Current Facility-Administered Medications Medication Dose Route Frequency Provider Last Rate Last Admin Albuterol Sulfate (Proventil) (2.5 MG/3ML) 0.083% inhalation solution 2.5 mg 2.5 mg Nebulizer Once PRN Leana Fagan PA-C 2.5 mg at 04/25/23 1422 Family History Problem Relation Name Age of Onset Other (Depression/anxiety) Mother No Known Problems Father Social History: Alcohol: None Tobacco Use: No Drug Use: THC medical card-- vapes Marital status: single Occupation: temporary data entry clerk Review of Systems: Review of Systems Gastrointestinal: Negative for abdominal pain, diarrhea, nausea and vomiting. Psychiatric/Behavioral: Negative for dysphoric mood. The patient is not nervous/anxious. Menstrual Cycle: Yes Control: none; not sexually active right now; condoms Physical Examination: There were no vitals taken for this visit. Physical Exam Vitals and nursing note reviewed. Constitutional: Appearance: Normal appearance. HENT: Head: Normocephalic and atraumatic. Cardiovascular: Normal rate. Pulmonary: Effort: Pulmonary effort is normal. No respiratory distress. Neurological: Mental Status: Alert and oriented to person, place, and time. Psychiatric: Mood and Affect: Mood normal. Assessment and Recommendation: Abnormal weight gain There is no height or weight on file to calculate BMI. Class II obesity. Discussed weight management options and would like to proceed with medication weight management. Barriers are consistency. Motivators are feeling better, avoiding/reducing comorbid conditions. Patient goals were discussed in detail at visit. IMPORTANT DIETARY CHANGES WHEN TAKING INJECTABLE WEIGHT LOSS MEDICATION PROTEIN!! PROTEIN!! PROTEIN!! Not getting enough protein can contribute to hair thinning, hair loss, muscle loss and fatigue. -Minimum 60g protein per day -Aim for 20g protein per meal -Daily protein goal 60g-100g Work to eat small portions-- larger portions can lead to indigestion, nausea, vomiting, sulfur burps. - Do NOT skip meals--eat small frequent meals/snacks throughout the day - Eat slowly--take 20-30 minutes for each meal - Chew food thoroughly (to applesauce consistency) -Try eating and drinking by 30 min if struggling with intake Foods high in sugar and carbohydrates can lead to diarrhea. - Avoid sugar sweetened drinks including regular sodas, sweet tea, and fruit juice - Eat foods high in lean protein, vegetables, fruits, fiber, & whole grains - Limit processed foods, excess sugar, refined/white carbs, & fried foods PLAN: Goals as above Anti obesity Medication Indications: BMI >30 or BMI >27 with obesity related comorbidity & no apparent contraindications Goal is to lose ~5% wt loss in 3 mo Wegovy/Saxenda/Zepbound: will have coverage Ozempic, Victoza, Seda, Emmettunkyero: continue ozempic 0.5mg weekly Fidel was seen today for weight management. Diagnoses and all orders for this visit: Class 2 obesity due to excess calories without serious comorbidity with body mass index (BMI) of 36.0 to 36.9 in adult Start ozempic Goals as above Keep up the great work!! Plan Semaglutide(0.25 or 0.5MG/DOS) 2 MG/3ML Solution Pen-injector (Ozempic) Abnormal weight gain Multiple sclerosis, relapsing-remitting (HCC) Continue ocrevus infusions Migraine with aura and without status migrainosus, not intractable I spent a total of 20 minutes on the date of service in preparation, delivery, and documentation ofthe care provided to Fidel Baumann excluding any time spent in the performance of separately billed services. More than 50% of my time spent with patient providing counseling about the benefits of weight loss, about the patient's nutritional status, detailed explanations about calorie count, types of nutrients to choose, and composition of the meals. Reviewed and discussed weight, weight trendsand pertinent labs and test results. Motivational interview provided in order to prepare the patient to achieve future goals. The patient agreed to try all the plan discussed and return in three months. Patient was instructed to message or call in the meantime with any further concerns or questions. Na Gutiérrez PA-C, [facility] Nutrition and [facility] Management [facility] documented in this encounter Plan of Treatment Upcoming Encounters Date Type Department Care Team (Late st Contact Info) Description 12/26/2023 9:30 AM EDT Hem/Onc Treatment Hematology/Oncology Treatment, [place] [address] [place] [phone] 01/06/2024 2:20 PM EDT Office Visit Sleep Disorders Ctr [facility] [address] [place] [phone] Jalyn Sommer DO [address] [place] [address] 02/06/2024 10:00 AM EST Telemedicine Otolaryngology [facility] [address] [place] [address] Mariah Mandel MD [address] [place] [address] 04/29/2024 3:00 PM EST Telemedicine Neurology [address] [place] [phone] Quyen Palma PA-C [address] [place] [facility] [place] [phone] 04/30/2024 9:00 AM EST Laboratory Laboratory [facility] [place] [address] [place] [phone] [place], Lab [facility] [address] [place] [address] 05/03/2024 7:00 AM EST Pharmacy Neurology [address] [place] [phone] Brittny, Pharmacist Neurology [address] [place] [address] 06/29/2024 8:30 AM EDT Office Visit Family Medicine [address] [phone] [address] [place] [address] 12/06/2024 2:20 PM EDT Office Visit [facility] [place] [address] [place] [address] Thelma Villatoro MD [address], [place] [phone] Health Maintenance Due Date Last Done Comments [...] as of this encounter Visit Diagnoses Diagnosis Class 1 obesity due to excess calories without serious comorbidity with body mass index (BMI) of 34.0 to 34.9 in adult- Primary Abnormal weight gain Migraine with aura and without status migrainosus, not intractable Migraine with aura, without mention of intractable migraine without mention of status migrainosus Multiple sclerosis, relapsing-remitting (HCC) Multiple sclerosis documented in this encounter Advance Directives * Full Code (Latest Code Status on File) Date Activated Date Inactivated Comments 10/13/2020 10:06 AM 10/13/2020 9:06 PM This order reflects the patients wishes and were consensually agreed upon. Question Answer Comments Discussion of Advance Directives occurred with: Not Discussed Care Teams Safe And Vault Installer Relationship Specialty Start Date End Date Mary Lovell DO [address] [place] [address] [place] [address] PCP - General Internal Medicine 01/28/17 documented as of this encounter
--- OUTSIDE RECORDS SUMMARY | 2024-04-07 00:44 | External Medical Summary | Summary of Care ---
Author Name Unknown Organization [facility] Address [address] [place] [address] Phone [phone] Care Team Providers Care Musical String Maker Name Role Phone Mary Lovell Primary Care Provider Encounter Details Date Type Department Care Team (Late st Contact Info) Description 10/29/2023 Orders Only Neurology [address] [place] [address] [place] [address] [facility] [address] [place] [address] Allergies No known active allergiesdocumented as of this encounter (statuses as of 10/29/2023) Medications Medication Sig Dispensed Refills Start Date [...] the morning. 16 g 2 04/24/2023 Active Vitamin D3 125 MCG (5000 UT) Oral Tablet Take 5,000 units (one tablet) by mouth twice daily x 12 weeks, then decrease to 5,000 units (one tablet) once daily thereafter 168 Tablet 04/28/2023 Active LORazepam 0.5 MG Oral Tablet (Ativan) [...] 0.1 % Nasal Solution (Astelin) Administer 1 [place] into nostril in the morning and 1 [place] before bedtime. 30 mL 12 08/22/2023 Active Ozempic (0.25 or 0.5 MG/DOSE) 2 MG/3ML Solution Pen-injector (Semaglutide(0.25 or 0.5MG/DOS)) Inject 0.5 mg under the skin once a week. 3 mL 2 10/06/2023 Active Hospital, Clinic, or Other Facility Administered Medication Ordered Dose Route Frequency Start Date End Date Status Albuterol Sulfate (Proventil) (2.5 MG/3ML) 0.083% inhalation solution 2.5 mgIndications:Sinus pressure 2.5 mg NEBULIZER ONCE PRN 04/24/2023 04/23/2024 Active documented as of this encounter (statuses as of 10/29/2023) Active Problems Problem Noted Date Diagnosed Date Wheezing 04/08/2023 Chronic frontal sinusitis 04/08/2023 Dermoid cyst of right ovary 04/12/2021 Migraine with aura and witho ut status migrainosus, not intractable 08/03/2018 Obesity, Class II, BMI 35-39.9, isolated (see ac tual BMI) 02/07/2017 Multiple sclerosis, relapsing-remitting 02/08/20 17 Vitamin D deficiency 02/03/2017 documented as of this encounter (statuses as of 10/29/2023) Resolved Problems Problem Noted Date Diagnosed Date Resolved Date Food insecurity 02/26/2021 09/26/2022 Overview: Per [facility] Protocol Sudden visual loss of left eye 01/28/2017 02/07/2017 Obesity, pediatric, BMI 95th to 98th percentile for age 0407/07/2014 02/07/2017 Depression 07/07/2014 02/07/2017 Deliberate self-cutting 07/07/201401/16 documented as of this encounter (statuses as of 10/29/2023) Immunizations Name Administration Dates Next Due DTaP [...] Description 10/31/2023 7:00 AM EDT Pharmacy Neurology [address] [place] [phone] Brittny, Pharmacist Neurology [address] [facility] [place] [phone] 11/14/2023 10:30 AM EDT Telemedicine Otolaryngology [facility] [address] [place] [address] Mariah Mandel MD [address] [place] [address] 12/09/2023 2:20 PM EDT Office Visit Nutrition & Weight Management, [facility] [address] [place] [address] Na Gutiérrez PA-C [address] [place] [address] 12/11/2023 2:20 PM EDT Office Visit Sleep Disorders Ctr [facility] [address] [phone] Jalyn Sommer DO [address] [place] [address] 12/26/2023 9:30 AM EDT Hem/Onc Treatment Hematology/Oncology Treatment, [place] [address] [place] [phone] 04/29/2024 3:00 PM EST Telemedicine Neurology [address] [place], [place] [phone] Quyen Palma PA-C [address] [place] [address] 06/29/2024 8:30 AM EDT Office Visit Family Medicine [address] [place] [phone] [address] [place] [address] 12/06/2024 2:20 PM EDT Office Visit Neurology [facility] [address] [facility] [place] [address] Thelma Villatoro MD [address] [place], [place] [phone] Health Maintenance Due Date Last Done Comments [...] Directives occurred with: Not Discussed Care Teams Musical String Maker Relationship Specialty Start Date End Date Mary Lovell DO [address] [place] [address] [place] [phone] PCP - General Internal Medicine 01/28/17 documented as of this encounter
--- OUTSIDE RECORDS SUMMARY | 2024-04-07 00:44 | External Medical Summary | Summary of Care ---
Author Name Unknown Organization [facility] Address [address] [place] [address] Phone [phone] Care Team Providers Care Nut Sifter Name Role Phone Mary Lovell Primary Care Provider [phone] Reason for Visit * Reason Comments Dosage Adjustment Via Phone (anticoag Cl inic) Encounter Details Date Type Department Care Team (Late st Contact Info) Description 10/31/2023 7:00 AM EDT Pharmacy Neurology [facility] [place] [address] [place] [address] [place], Pharmacist Neurology [address] [place] [address] Multiple sclerosis, relapsing-remitting (HCC)* Allergies [...] 0.1 % Nasal Solution (Astelin) Administer 1 Lincoln into nostril in the morning and 1 Lincoln before bedtime. 30 mL 12 08/22/2023 Active [...] as of this encounter Progress Notes * Genesis Bruno, [facility] - 10/31/2023 8:20 AM EDT Pharmacy Progress [...] PLAN: Labs completed for Ocrelizumab (Ocrevus). Sent [employer] Message with the results. Results: CBC/D - [...] months for lab results Genesis Bruno [facility] Clinical Pharmacist, Neurology Medication Therapy Disease Management 10/31/2023, 8:20 AM Electronically signed by Genesis Bruno [facility] at 10/31/2023 10:03 AM EDT documented in this encounter Plan of Treatment Upcoming Encounters Date Type Department Care Team (Late st Contact Info) Description 11/14/2023 10:30 AM EDT Telemedicine Otolaryngology [facility] [address] [address] Mariah Mandel MD [address] [place] [place] [address] 12/09/2023 2:20 PM EDT Office Visit Nutrition & Weight Management, [facility] [address] [place] [address] Na Gutiérrez PA-C [address] [place] [address] 12/11/2023 2:20 PM EDT Office Visit Sleep Disorders Ctr [facility] [address] [place] [phone] Jalyn Sommer, 132 [facility] [place] [address] 12/26/2023 9:30 AM EDT Hem/Onc Treatment [facility]ematology[facility] [place] [facility] [phone] 04/29/2024 3:00 PM EST Telemedicine Neurology [address] [place] [address] Quyen Palma PA-C [address] [place] [address] 06/29/2024 8:30 AM EDT Office Visit [address] [phone] Mary [address] [place] [address] 12/06/2024 2:20 PM EDT Office Visit [facility] [address] Thelma Villatoro MD [address] [place] [address] Scheduled Orders Name Type Priority [...] Directives occurred with: Not Discussed Care Teams Nut Sifter Relationship Specialty Start Date End Date Mary Lovell DO [address] [place] [address] [place] [phone] PCP - General Internal Medicine 01/28/17 documented as of this encounter
--- OUTSIDE RECORDS SUMMARY | 2024-04-07 00:44 | External Medical Summary | Summary of Care ---
Author Name Unknown Organization [facility] Address [address] [place] [address] Phone [phone] Care Team Providers Care Clin Asst Name Role Phone Mary Lovell Primary Care Provider Encounter Details Date Type Department Care Team (Late st Contact Info) Description 11/14/2023 10:30 AM EDT Telemedicine [facility] [place] [address] Mariah Mandel MD [address] [place] [address] Chronic maxillary sinusitis [J32.0]* Allergies No known active allergiesdocumented as of this encounter (statuses as of 11/14/2023) Medications Medication Sig Dispensed Refills Start Date [...] 0.1 % Nasal Solution (Astelin) Administer 1 Sanford into nostril in the morning and 1 Sanford before bedtime. 30 mL 12 08/22/2023 Active [...] twice daily. 60 Capsule 5 10/31/2023 Active Hospital, Clinic, or Other Facility Administered Medication Ordered Dose Route Frequency Start Date End Date Status Albuterol Sulfate (Proventil) (2.5 MG/3ML) 0.083% inhalation solution 2.5 mgIndications:Sinus pressure 2.5 mg NEBULIZER ONCE PRN 04/24/2023 04/23/2024 Active documented as of this encounter (statuses as of 11/14/2023) Active Problems Problem Noted Date Diagnosed Date Wheezing 04/08/2023 Chronic frontal sinusitis 04/08/2023 Dermoid cyst of right ovary 04/12/2021 Migraine with aura and witho ut status migrainosus, not intractable 08/03/2018 Obesity, Class II, BMI 35-39.9, isolated (see ac tual BMI) 02/07/2017 Multiple sclerosis, relapsing-remitting 02/08/20 17 Vitamin D deficiency 02/03/2017 documented as of this encounter (statuses as of 11/14/2023) Resolved Problems Problem Noted Date Diagnosed Date Resolved Date Food insecurity 02/26/2021 09/26/2022 Overview: Per [facility] Protocol Sudden visual loss of left eye 01/28/2017 02/07/2017 Obesity, pediatric, BMI 95th to 98th percentile for age 0407/07/2014 02/07/2017 Depression 07/07/2014 02/07/2017 Deliberate self-cutting 07/07/201401/16 documented as of this encounter (statuses as of 11/14/2023) Immunizations Name Administration Dates Next Due DTaP [...] as of this encounter Progress Notes * Mariah Mandel MD - 11/14/2023 9:33 AM EDT 11/14/2023 HISTORY OF PRESENT ILLNESS This 23 year old year old female is seen today for the initial complaint of sinus and smell issues.The provider requesting consultation is Leana Fagan PA-C. Patient location: HOME. I was in a hospital or clinic location. After connecting through [employer],patient was verified with two unique identifiers. Patient (or authorized legal chemical sales representative) was then informed that this was a Telemedicine visit and being conducted confidentially over secure lines. Methods to assure confidentiality were taken. Patient acknowledged consent and understanding of pr ivacy and security of the Telemedicine visit. The patient agreed to participate. Patient has MS on immunotherapy Problem List Patient Active Problem List Diagnosis Vitamin D deficiency Obesity, Class II, BMI 35-39.9, isolated (see actual BMI) Multiple sclerosis, relapsing-remitting (HCC) Migraine with aura and without status migrainosus, not intractable Dermoid cyst of right ovary Wheezing Chronic frontal sinusitis Past Medical History: Diagnosis Date Depression 07/07/2014 Dermoid cyst of right ovary 04/12/2021 Migraine with aura and without status migrainosus, not intractable 08/03/2018 Multiple sclerosis, relapsing-remitting (HCC) 02/07/2017 Obesity, Class II, BMI 35-39.9, isolated (see actual BMI) 02/07/2017 Sudden visual loss of left eye 01/28/2017 Vitamin D deficiency 02/03/2017 Past Surgical History: Procedure Laterality Date DENTAL SURGERY PROCEDURE NEC EGD, W/ENDOSCOPIC US 09/28/2020 normal EGD /biopsies small intestine & stomach were within normal limits / EUS multi stones in gallbladder / no specimens collected / ESOPHAGOGASTRODUODENOSCOPY (EGD), FLEXIBLE, TRANSORAL, ENDOSCOPIC ULTRASOUND performed by Prosper Caba DO at ENDOSCOPY [facility] LAPAROSCOPY; CHOLECYSTECTOMY N/A 10/13/2020 LAPAROSCOPIC CHOLECYSTECTOMY performed by Carrillo Nguyễn MD at [facility] 2016 Medications Current Outpatient Medications Medication Sig Dispense Refill MEDICAL INSTRUCTIONS Use as directed. Maintain access for on going med therapy july D/C after last dose 1 Each N/A [...] 0.1 % Nasal Solution (Astelin) Administer 1 Sanford into nostril in the morning and 1 Sanford before bedtime. 30 mL 12 Ozempic (0.25 [...] 5000 units twice daily. 60 Capsule 5 Current Facility-Administered Medications Medication Dose Route Frequency Provider Last Rate Last Admin Albuterol Sulfate (Proventil) (2.5 MG/3ML) 0.083% inhalation solution 2.5 mg 2.5 mg Nebulizer Once PRN Leana Fagan PA-C 2.5 mg at 04/25/23 1422 Allergies Review of patient's allergies indicates: No Known Allergies Family History Family History Problem Relation Name Age of Onset Other (Depression/anxiety) Mother No Known Problems Father Social History Social History Tobacco Use Smoking status: Never Smokeless tobacco: Never Substance Use Topics Alcohol use: Not Currently Comment: occasionally Vaping/E-Cigarette Use Vaping/E-Cigarette Use Never User Vaping/E-Cigarette Substances Vaping/E-Cigarette Devices Occupational History Work: Review of Systems Negative for constitutional, eyes, cardiac, pulmonary, hepatic, renal, digestive, hematologic, epileptic, syncopal, musculo-skeletal, mental health, integumentary, hypertensive, lipid, arthritic, diabetic, thyroid or neurologic disorders (except as listed in the PMH and Problem List). Physical Examination: LAST VISIT: PHYSICAL EXAM General: This is a healthy appearing female who appears her stated age. The patient is alert and appropriately verbally conversant without hoarseness. Face: The face was inspected and no cutaneous masses or lesions were visualized. There was no erythema or edema noted. Facial movement was symmetric without weakness. No skin lesions were detected. The parotid and submandibular glands were normal to palpation. Eyes: Extra-ocular muscle function was intact. No nystagmus was observed. Pupils were equal. Cranial Nerves: Grossly intact Nose: Examination of the nose prior to decongestion revealed no masses, polyps, mucopus, or other lesion. The nasal septum was non-obstructing. The turbinates were without abnormality. No septal perforation. Oral Cavity: Examination of the oral cavity revealed no mass lesions nor infection. The palate was noted to be intact without evidence of clefting. The tongue exhibited normal mobility. Mucosa was moist without lesion. The lips were free of lesion. Gums were free of inflammation. Dentition: Unremarkable Oropharynx: The oral pharynx was free of mass lesion or mucosal abnormality. The palate was noted to be without lesion. The uvula was normal appearing. The tonsils were unremarkable. Hypopharynx: flexible fiberoptic examination of the hypopharynx revealed normal mucosa. The tongue base was normal. There was no abnormal lymphoid tissue. There were no mass lesions. Larynx: flexible fiberoptic examination of the larynx revealed no mass lesions. Vocal cord mobility was normal without paralysis or paresis. No vocal cord masses were visualized. The pyriform sinuses were free of mass lesion and significant pooling. The mucosa was normal appearing. Ears: Examination of the ears revealed that the auricles were normally formed with no lesions. The external auditory canals were cleaned of any obstructing cerumen. The tympanic membranes were intact. There are no significant retraction pockets. There is no inflammation visualized. No effusions areseen. Neck: Visualization and palpation of the neck revealed no mass lesions, no thyromegaly or thyroid masses. No skin lesions or inflammatory processes were detected. The cervical musculature was normal to palpation. Lymphatics (cervical): There were no palpable lymph nodes in the posterior triangle, submandibular triangle, jugulodigastric region, or central neck. Lungs: Breathing quietly. No use of accessory muscles. Heart: Regular rate. No JVD. Procedure: Due to patient's inability to cooperate with mirror exam or concern for structures otherwise not evaluated, fiberoptic examination of the larynx was performed. The nose was first topically decongested with topical oxymetazoline 0.05% spray and topically anesthetized with topical Lidocaine 4% spray. Nasopharynx, oropharynx, larynx and hypopharynx were carefully examined. Vocal fold motion was evaluated. The patient tolerated the procedure well. Patient should refrain from eating or drinking for 30-45 minutes due to anesthesia of the pharynx and possible interference with swallowing. Specific findings: Patient has drainage bilaterally that is thicker and some spots but nonpurulent. Overall nasal passages are patent with some mild irritation. Vocal cords are mobile with signs of reflux. Plan: Chronic maxillary sinusitis [J32.0] (Primary) Patient is still having issues even just with the rinses. She had a recent MRI that again just showed some mucosal thickening but no complete opacification of any of her sinuses. Think we should continue to move conservatively given her MS diagnosis so will start advanced Rx. Phone visit in 12 weeks. At that point if she requires surgery I would most likely refer her to 1 of our rhinology cysts in [place]. Last visit: Recommended nasal saline rinses twice daily. Use distilled water. Perform saline rinse in the shower leaning over so your nose is below your mouth. With gentle pressure use half of this saline rinse in each nostril. Following the saline rinse, instructed the patient to use a nasal steroid spray taking care to NOT spray towards the septum, but to spray out towards the ipsilateral ear. Emphasized that this regimen needs to be repeated twice a day, everyday for 6 weeks to reach maximum effect. This is not a PRN medication. I have asked that the patient has multiple sclerosis and is on immunotherapy may be why she is moreprone to sinus infections so i will be important for her to continue her rinses and we may want to consider budesonide. Phone visit in 12 weeks if no improvement at that point we might want to try advanced Rx as she would like to avoid surgery. Also I think she had be a less successful surgical candidate given her multiple sclerosis and immunotherapy. Extensive time was spent discussing the above diagnosis, management and treatment. I reviewed all outside documentation, labs, and imaging. I spent a total of 20-29 minutes (exact time 21 mins) on the date of service in preparation, delivery, and documentation of the care provided to Fidel Baumann excluding any time spent in the performance of separately billed services. Mariah Mandel MD [facility] Otolaryngology - Head and Neck Surgery [place], [place] 11/14/2023 9:34 AM documented in this encounter Plan of Treatment Upcoming Encounters Date Type Department Care Team (Late st Contact Info) Description 12/09/2023 2:20 PM EDT Office Visit Nutrition & Weight Management, [facility] 132 [facility] [place] [address] Na Gutiérrez PA-C 132 [facility] [place] [address] 12/11/2023 2:20 PM EDT Office Visit Sleep Disorders Ctr [facility] 132 [facility] [place] [phone] Jalyn Sommer DO [facility] [place] [address] 12/26/2023 9:30 AM EDT Hem/Onc Treatment Hematology/Oncology Treatment, [place] [address] [place] [address] 02/06/2024 10:00 AM EST Telemedicine Otolaryngology [facility] [place] [address] Mariah Mandel MD [address] [place] [address] 04/29/2024 3:00 PM EST Telemedicine Neurology [address] [place] [phone] Quyen Palma PA-C [address] [place] [place] [phone] 04/30/2024 9:00 AM EST Laboratory Laboratory [facility] [place] [place] [address] [place] [phone] [place], Lab Scenery [address] [place] [address] 05/03/2024 7:00 AM EST Pharmacy Neurology [address] [place] [phone] [place], Pharmacist Neurology [address] [facility], [place] [phone] 06/29/2024 8:30 AM EDT Office Visit Family Medicine [address] [phone] [address] [place] [address] 12/06/2024 2:20 PM EDT Office Visit Neurology [facility] [place] [address] [place] [address] Thelma Villatoro MD [address] [facility], [place] [phone] Health Maintenance Due Date Last Done Comments [...] as of this encounter Visit Diagnoses Diagnosis Chronic maxillary sinusitis [J32.0]- Primary Chronic maxillary sinusitis documented in this encounter Advance Directives * Full Code (Latest Code Status on File) Date Activated Date Inactivated Comments 10/13/2020 10:06 AM 10/13/2020 9:06 PM This order reflects the patients wishes and were consensually agreed upon. Question Answer Comments Discussion of Advance Directives occurred with: Not Discussed Care Teams Clin Asst Relationship Specialty Start Date End Date Mary Lovell DO [address] [place] [address] [place] [address] PCP - General Internal Medicine 01/28/17 documented as of this encounter
--- OUTSIDE RECORDS SUMMARY | 2024-04-07 00:44 | External Medical Summary | Summary of Care ---
Author Name Unknown Organization [facility] Address [address] [place] [address] Phone [phone] Care Team Providers Care Customer Relations Consultant Name Role Phone Mary Lovell Primary Care Provider Reason for Visit * Reason Comments Multiple Sclerosis Encounter Details Date Type Department Care Team (Late st Contact Info) Description 10/24/2023 7:00 AM EDT Pharmacy Neurology [address], [place] [address] [place] [address] [place], Pharmacist Neurology [address] [place] [address] Multiple sclerosis, relapsing-remitting (HCC)* Allergies No known active allergiesdocumented as of this encounter (statuses as of 10/24/2023) Medications Medication Sig Dispensed Refills Start Date [...] once daily thereafter 168 Tablet 04/28/2023 Active Additional Information Patient not taking.Reported on 06/03/2023 LORazepam 0.5 MG Oral Tablet (Ativan) Take [...] 0.1 % Nasal Solution (Astelin) Administer 1 Candor into nostril in the morning and 1 Candor before bedtime. 30 mL 12 08/22/2023 Active [...] as of this encounter (statuses as of 10/24/2023) Active Problems Problem Noted Date Diagnosed Date Wheezing 04/08/2023 Chronic frontal sinusitis 04/08/2023 Dermoid cyst of right ovary 04/12/2021 Migraine with aura and witho ut status migrainosus, not intractable 08/03/2018 Obesity, Class II, BMI 35-39.9, isolated (see ac tual BMI) 02/07/2017 Multiple sclerosis, relapsing-remitting 02/08/20 17 Vitamin D deficiency 02/03/2017 documented as of this encounter (statuses as of 10/24/2023) Resolved Problems Problem Noted Date Diagnosed Date Resolved Date Food insecurity 02/26/2021 09/26/2022 Overview: Per [facility] Protocol Sudden visual loss of left eye 01/28/2017 02/07/2017 Obesity, pediatric, BMI 95th to 98th percentile for age 0407/07/2014 02/07/2017 Depression 07/07/2014 02/07/2017 Deliberate self-cutting 07/07/201401/16 documented as of this encounter (statuses as of 10/24/2023) Immunizations Name Administration Dates Next Due DTaP [...] this encounter Progress Notes * Vonnie Taylor, high speed warper tender - 10/24/2023 12:12 PM EDT Attempt 1 No recent lab results available Patient is due for [employer] reminder message sent today. Follow up in 1 week(s) for results. documented in this encounter Plan of Treatment Upcoming Encounters Date Type Department Care Team (Late st Contact Info) Description 10/27/2023 2:20 PM EDT Office Visit Neurology [facility] 200 [facility] [place] [address] Thelma Villatoro MD [address] [facility] [place] [address] 10/31/2023 7:00 AM EDT Pharmacy Neurology [address] [place] [phone] [place], Pharmacist Neurology 100 [address] [facility] [place] [address] 11/14/2023 10:30 AM EDT Telemedicine Otolaryngology [facility] 132 [facility] [place] [address] Mariah Mandel MD [address] [place] [address] 12/09/2023 2:20 PM EDT Office Visit Nutrition & Weight Management, [facility] [address] [place] [address] Na Gutiérrez PA-C 132 [facility] [place] [address] 12/11/2023 2:20 PM EDT Office Visit Sleep Disorders Ctr [facility] 132 [facility] [place] [phone] Jalyn Sommer DO [address] [place] [address] 12/26/2023 9:30 AM EDT Hem/Onc Treatment Hematology/Oncology Treatment, [place] [address] [place] [phone] 06/29/2024 8:30 AM EDT Office Visit Family Medicine [address] [phone] Mary Lovell[address] [place] [address] Health Maintenance Due Date Last Done Comments [...] Directives occurred with: Not Discussed Care Teams Customer Relations Consultant Relationship Specialty Start Date End Date Mary Lovell DO [address] [place] [address] [place] [address] PCP - General Internal Medicine 01/28/17 documented as of this encounter
--- OUTSIDE RECORDS SUMMARY | 2024-04-07 00:44 | External Medical Summary | Summary of Care ---
Author Name Unknown Organization [facility] Address [address] [place] [address] Phone [phone] Care Team Providers Care Rate And Cost Analyst Name Role Phone Mary Lovell Primary Care Provider [phone] Reason for Visit * Reason Comments Follow Up Encounter Details Date Type Department Care Team (Late st Contact Info) Description 10/27/2023 2:20 PM EDT Office Visit Neurology [facility] [address] [place] [address] Thelma Villatoro MD [address] [place] [address] Multiple sclerosis, relapsing-remitting (HCC)*; Muscle spasm; Migraine with aura and without status migrainosus, not intractable; Fatigue, unspecified type; Vitamin D deficiency Allergies No known active allergiesdocumented as of this encounter (statuses as of 10/27/2023) Medications Medication Sig Dispensed Refills Start Date [...] 0.1 % Nasal Solution (Astelin) Administer 1 [place] into nostril in the morning and 1 [place] before bedtime. 30 mL 12 08/22/2023 Active [...] as of this encounter (statuses as of 10/27/2023) Active Problems Problem Noted Date Diagnosed Date Wheezing 04/08/2023 Chronic frontal sinusitis 04/08/2023 Dermoid cyst of right ovary 04/12/2021 Migraine with aura and witho ut status migrainosus, not intractable 08/03/2018 Obesity, Class II, BMI 35-39.9, isolated (see ac tual BMI) 02/07/2017 Multiple sclerosis, relapsing-remitting 02/08/20 17 Vitamin D deficiency 02/03/2017 documented as of this encounter (statuses as of 10/27/2023) Resolved Problems Problem Noted Date Diagnosed Date Resolved Date Food insecurity 02/26/2021 09/26/2022 Overview: Per [facility] Protocol Sudden visual loss of left eye 01/28/2017 02/07/2017 Obesity, pediatric, BMI 95th to 98th percentile for age 0407/07/2014 02/07/2017 Depression 07/07/2014 02/07/2017 Deliberate self-cutting 07/07/201401/16 documented as of this encounter (statuses as of 10/27/2023) Immunizations Name Administration Dates Next Due DTaP [...] Sign Reading Time Taken Comments Blood Pressure 98/62 10/27/2023 2:15 PM EDT Pulse 100 10/27/2023 2:15 PM EDT Temperature 36.2 C (97.2 F) 10/27/2023 2:15 PM ED T Respiratory Rate 20 10/27/2023 2:15 PM EDT Oxygen Saturation 99% 10/27/2023 2:15 PM EDT Inhaled Oxygen Concentration - - Weight 103 kg (227 lb 1.6 oz) 10/27/2023 2:15 PM EDT Height - - Body Mass Index 32.88 08/22/2023 9:46 AM EDT documented in this encounter Progress Notes * Thelma Villatoro MD - 10/27/2023 2:20 PM EDT [facility] FOLLOW UP PATIENT VISIT NOTE Name: Fidel Baumann Referring provider: Mary Lovell DO PCP: Mary Lovell DO SUBJECTIVE Chief Complaint: Chief Complaint Patient presents with Follow Up History of Present Illness (HPI): Fidel Baumann returns to [facility] for treatment of multiple sclerosis and relatedsymptoms. PMH of depression, migraines and ON. Patient presents alone to the clinic. Fidel Baumann continues on Ocrelizumab (Ocrevus) as their disease-modifying therapy since 2019 after radiographic breakthrough while on Tysabri. Started Ozempic and has lost 30+ lbs. Feels great. Mentally clear, mobile, has energy. Stays active. Migraines have been good but has been getting nasal migraines. Last MRI brain showed worsening inflammatory left sphenoid sinus disease. Has appt with ENT in 2 weeks to discuss. No other recent infections. Since last clinic visit, patient denies any new focal neurologic symptoms suggestive of inflammatory disease activity. Specifically patient denies any episodes lasting greater than 24 hours of painful vision loss, double vision, oscillopsia, slurred speech, vertigo, incoordination, focal weakness, bowel or bladder incontinence, focal sensory loss, or Lhermitte's. MS ROS: Vision is a little blurry and she gets floaters. There is no color desaturation, diplopia, blurred or obscured vision Motor features: no new weakness Spasticity: leg spasms Pain: none Sensory features: some numbness in big toe BL Ambulation/Gait: some lightheadedness Falls: no recent falls Estimates can walk >500 feet with out assistance. Coordination features: none Speech/Language/Swallow: some swallowing issues due to sinuses Bowel and bladder functioning: urinary frequency, urgency, leakage. Cognition: brain fog. improved Mood: depression/anxiety at baseline but currently doing well without meds Fatigue: yes, and sleep is poor Sleep: had sleep study in the past showing no AGUSTIN. Has another sleep visit scheduled for end of November - has not improved since losing weight MS Hug: none Uhthoffs: gives her headaches Lhermitte's: sometimes Migraines: Location: both temples or the occipital region. Aura: none Associated: photophobia, nausea, dizziness. Can have phonophobia, blurred vision and her left sidedparesthesias can worsen. Frequency: rarely Duration: can last days - about 3 Prior Treatment: predisone taper - works; OTC medications (ibuprofen) rarely, naratriptan did not help Current Treatment: rizatriptan PRN - stays hydrated - exercises MS History: Initial Symptoms Onset (year and quality): 01/17/2017 sudden loss of vision in her left eye associated w/ painful EOM. Initial Diagnosis (year): MRI Brain: 09/2023: stable, significant burden of disease with black holes and mild brain atrophy 09/2022: stable 09/2021: stable 09/2020: stable 09/2019: stable 11/2018: few new small enhancing lesions 09/29/2017: interval appearance of lesions in bilateral cerebral white matter and right superior cerebellar peduncle and at least 7 of these new lesions show associated punctate contrast enhancement 06/2017 multiple new enhancing lesions mostly in the frontal lobe 02/2017: multiple T2 hyperintensities, some enhancing MRI C-Spine: 09/2023: stable 09/2022: stable 09/2021: stable 09/2020: no lesions 09/2019: no lesions 02/2017: no lesions MRI T-spine: CSF results: SUNNY Virus: + (0.51); received 9 doses Tysabri while positive low titre NMO: Serum Mimics: Sjogren's: - Lupus: - RA: HIV: - Lyme: - Prior DMT:Copaxone 03/2017-06/2017; Tysabri 04/2018-01/2019 Current DMT: Ocrelizumab 01/2019 Social and Lifestyle Habits Relationship and Family: single. Just bought a house! Employment: works a desk job, data security analyst Education: 12th grade Tobacco Use: none Alcohol Use: none Drug Use: none Exercise: regular exercise control method: none, wants babies in future Family History Pertinent Negatives: (+) maternal grandmother may have had RA Lupus, Sjogren's, Sarcoid, Rheumatoid Arthritis, Celiac Disease, Gluten Enteropathy, IBD. Multiple Sclerosis: none Review of Symptoms (ROS): All other systems were reviewed and significant positives and negatives are listed in HPI. OBJECTIVE Physical Examination: BP 98/62 (BP Site: Right Arm, BP Position: Sitting, BP Cuff Size: Regular) | Pulse 100 | Temp 36.2 C (97.2 F) (Tympanic) | Resp 20 | Wt 103 kg (227 lb 1.6 oz) | SpO2 99% | BMI 32.88 kg/m | BSA 2.25 m Constitutional: Normally developed, well nourished, no deformities, well groomed. Mental status: Alert Oriented to person, place, time Very pleasant affect Cranial nerves: I not tested II Normal visual miranda to finger counting. II, III, IV, Pupils were symmetric, briskly reactive. No afferent pupillary defect. Eye movements are full without nystagmus. No ptosis. V Facial sensation is normal to light touch. VII Facial movements are normal. VIII Hearing is normal to conversation. IX, X Palate is normal with attempted elevation. Uvula midline. XI Shoulder shrug and head turn normal. XII Tongue protrudes in the midline without atrophy. Motor: Tone: Normal, no spasticity. Bulk: No atrophy Strength: (0-No movement. 1-Muscle contract. 2-Moves on bed. 3-Antigrav. 4-Mildly weak. 5-Full) Action Right Left Shoulder abduction 5 5 Elbow flexion 5 5 Wrist extension 5 5 Elbow extension 5 5 Finger abduction 5 5 Hip flexion 5 5 Knee extension 5 5 Knee flexion 5 5 Foot dorsiflexion 5 5 Reflexes: Right Left Biceps 2+ 2+ Brachioradialis 2+ 2+ Triceps 2+ 2+ Patella 2++ 3+ Achilles 2++ 3+ Mendoza Absent Absent Plantar response nt nt Coordination: Xocyor-qqus-oalqtz normal. Rapid alternating movements of hands normal. Heel-barry normal. Gait and Station: Posture normal. Romberg negative. Gait normal. Tandem walk normal. Toe walk normal. Heel walk normal. Laboratory tests: 10/21/2022: cbc normal, cmp normal, vitamin D 24 Imaging: MRI brain/C-spine 10/09/2023: IMPRESSION: BRAIN MR: 1. > 20 T2/FLAIR hyperintense lesions, with distribution consistent with provided multiple sclerosis diagnosis. No new or increased-dimension T2/FLAIR hyperintense lesions consistent with disease progression. Mild cerebral atrophy. 10-15 T1-hypointense black hole lesions. Single T2/FLAIR hyperintense lesion in critical infratentorial areas (brachium pontis, brainstem). No enhancing lesions compatible with active demyelination. 2. Greater than 5 mm left sphenoid sinus mucosal thickening. 3. Mild chronic brain parenchymal volume loss. 4. Otherwise, negative contrast-enhanced brain MR. No restricted diffusion concerning for acute CVA. No abnormal enhancement. CERVICAL SPINE MR: 1. Stable cervical spine degenerative changes compared with 09/2022 cervical spine MR. 2. Motion artifact. Grossly normal cervical spinal cord, without discrete abnormal enhancement. 3. Mild left C2-C3, left C3-C4, and left C4-C5 neural foraminal narrowing. Correlation with dermatomal symptom level recommended. 4. No cervical spinal canal stenosis. 5. Incompletely evaluated thyroglossal duct cyst. Neck CT with contrast may be performed to further characterize. ASSESSMENT Impression: In summary, Fidel Baumann is a very pleasant 23 year old female presenting today for multiple sclerosis follow-up. Patient is currently on Ocrelizumab (Ocrevus) as their disease-modifying therapy. Transitioned to ocrelizumab in 02/2019 in the setting of radiographic breakthrough on Tysabri in 11/2018. She is overall well/stable with no new relapses or worsening symptoms since starting Ocrevus. She is interested in repeating her sleep study as she still does not achieve restful sleep and wakes up gasping for air; this is in spite of a significant weight loss with the help of Ozempic - still fatigued during the day (mild) but still wakes up every hour. Discussed vitamin D compliance to help w ith brain fog and energy levels. ICD-10-CM 1. Multiple sclerosis, relapsing-remitting (HCC) G35 2. Muscle spasm M62.838 3. Migraine with aura and without status migrainosus, not intractable G43.109 4. Fatigue, unspecified type R53.83 5. Vitamin D deficiency E55.9 PLAN DMT: continue Ocrevus Labs: mtm to monitor cbc, cmp, vitD Imaging: MRI brain/C-spine due 09/2024, + lorazepam 0.5 mg x2 Vitamin D: continue current dose - compliance is lay. Check labs today Symptom management: Rizatriptan 10 mg PRN for migraine Consider Nurtec if rizatriptan ineffective Sleep medicine scheduled Fidel Baumann is to Follow Up: Return in about 6 months (around 04/28/2024) for Video to Home. | For: Video to Home | Check-out note: With Quyen; 12 months with Shauna, she is to call sooner with any new neurological symptoms, questions or concerns. Patient verbalized her understanding of the above plan and follow up. Thelma Villatoro MD Staff Physician Neuroimmunology and Neuroinfectious Diseases 10/27/2023 12:52 PM Total time spent face to face in this visit was 30 minutes of which more than 50% was spent discussing and counseling the patient/caregiver(s) regarding disease pathophysiology, test results, medication management, and management of symptoms. Total time spent on this date of service including non-face to face was 40 minutes in preparation, delivery, and documentation of care provided to Fidel Baumann, excluding time spent in performance of separately billable services. Details outlined above in impression and plan. documented in this encounter Nursing Notes * Melba Francis LPN - 10/27/2023 2:13 PM EDT Patient verified identity by spelling of last name and date. Chief Complaint Patient presents with Follow Up documented in this encounter Plan of Treatment Upcoming Encounters Date Type Department Care Team (Late st Contact Info) Description 10/31/2023 7:00 AM EDT Pharmacy Neurology [address] [place] [phone] Brittny, Pharmacist Neurology [address] [facility] [place] [address] 11/14/2023 10:30 AM EDT Telemedicine Otolaryngology [facility] [address] [place] [address] Mariah Mandel MD [address] [place] [address] 12/09/2023 2:20 PM EDT Office Visit Nutrition & Weight Management, [facility] [address] [address] Na Gutiérrez PA-C [address] [place] [address] 12/11/2023 2:20 PM EDT Office Visit Sleep Disorders Ctr [facility] [address] [place] [phone] Jalyn Sommer DO [address] [place] [address] 12/26/2023 9:30 AM EDT Hem/Onc Treatment Hematology/Oncology [facility] [place] [address] [facility] [place] [address] 04/29/2024 3:00 PM EST Telemedicine Neurology [address] [place] [phone] Quyen Palma PA-C [address] [place] [phone] 06/29/2024 8:30 AM EDT Office Visit Family Medicine [address] [phone] Mary Lovell[address] [place] [address] 12/06/2024 2:20 PM EDT Office [facility] [address] Thelma Villatoro MD [address] [place] [address] Health Maintenance Due Date Last [...] Multiple sclerosis, relapsing-remitting (HCC)- Primary Multiple sclerosis Muscle spasm Spasm of muscle Migraine with aura and without status migrainosus, not intractable Migraine with aura, without mention of intractable migraine without mention of status migrainosus Fatigue, unspecified type Vitamin D deficiency Unspecified vitamin D deficiency documented in this encounter Advance Directives * Full Code (Latest Code Status on File) Date Activated Date Inactivated Comments 10/13/2020 10:06 AM 10/13/2020 9:06 PM This order reflects the patients wishes and were consensually agreed upon. Question Answer Comments Discussion of Advance Directives occurred with: Not Discussed Care Teams Rate And Cost Analyst Relationship Specialty Start Date End Date Mary Lovell DO [address] [place] [address] [place] [address] PCP - General Internal Medicine 01/28/17 documented as of this encounter"
--- OUTSIDE RECORDS SUMMARY | 2024-04-07 00:44 | External Medical Summary | Summary of Care ---
Author Name Unknown Organization [facility] Address [address] [place] [address] Phone [phone] Care Team Providers Care Shale [employer]asting Name Role Phone Mary Lovell Primary Care Provider [phone] Reason for Visit * Reason Comments Outpatient Testing Encounter Details Date Type Department Care Team (Late st Contact Info) Description 10/27/2023 3:00 PM EDT Laboratory Laboratory [facility] [address] [place] [phone] [place] [address] [place] [address] Multiple sclerosis, relapsing-remitting (HCC) Allergies No known [...] 0.1 % Nasal Solution (Astelin) Administer 1 Golden into nostril in the morning and 1 Golden before bedtime. 30 mL 12 08/22/2023 Active [...] [place] [phone] Brittny, Pharmacist Neurology [address] [facility] [place] [address] 11/14/2023 10:30 AM EDT Telemedicine Otolaryngology [facility] [address] [place] [address] Mariah Mandel MD [address] [place] [address] 12/09/2023 2:20 PM EDT Office Visit Nutrition & Weight Management, [facility] [address] [address] Na Gutiérrez PA-C [address] [place] [address] 12/11/2023 2:20 PM EDT Office Visit Sleep Disorders Ctr [facility] [address] [phone] Jalyn Sommer DO [address] [place] [address] 12/26/2023 9:30 AM EDT Hem/Onc Treatment Hematology/Oncology [facility] [address] [facility] [place] [phone] 04/29/2024 3:00 PM EST Telemedicine Neurology [address] [place] [phone] Quyen Palma PA-C [address] [place] [facility] [place] [phone] 06/29/2024 8:30 AM EDT Office Visit Family Medicine [address] [phone] Mary Lovell[address] [place] [address] 12/06/2024 2:20 PM EDT Office Visit Neurology [facility] [address] Thelma Villatoro MD [address] [place], [place] [phone] Pending Results Name Type Priority Associated Diagnoses Date /Time 25-HYDROXY VITAMIN D Lab Routine Multiple sclerosis, relapsing-remitting (HCC) 10/27/2023 2:46 PM EDT COMPREHENSIVE METABOLIC PANEL Lab Routine Multiple sclerosis, relapsing-remitting (HCC) 10/27/2023 2:46 PM EDT Health Maintenance Due Date Last Done Comments [...] Procedure Name Priority Date/Time Associated Diagnosis Comments DIFFERENTIAL, AUTOMATED Routine 10/27/2023 2:46 PM EDT Multiple sclerosis, relapsing-remitting (HCC) CBC Routine 10/27/2023 2:46 PM EDT Multiple sclerosis, relapsing-remitting (HCC) CBC Routine 10/27/2023 2:46 PM EDT Multiple sclerosis, relapsing-remitting (HCC) documented in this encounter Results * (ABNORMAL) DIFFERENTIAL, AUTOMATED (10/27/2023 2:46 PM EDT) WBC 10.23 4.00 - 10.80 K/uL 10/27/2023 2:58 PM EDT [facility] 56-02 Neutrophils % 73.9 40.0 - 75.0 % 10/27/2023 2:58 PM EDT [facility] 56-02 Lymphocytes % 15.7(L) 18.0 - 42.0 % 10/27/2023 2:58 PM EDT [facility]ORY [facility] 56-02 Monocytes % 7.5 1.0 - 11.0 % 10/27/2023 2:58 PM EDT [facility] 56-02 Eosinophils % 2.6 0.0 - 6.0 % 10/27/2023 2:58 PM EDT [facility]ORY [facility] 56-02 Basophils % 0.3 0.0 - 2.0 % 10/27/2023 2:58 PM EDT [facility] 56-02 Absolute Neutrophils 7.55 1.80 - 7.70 K/uL 10/27/2023 2:58 PM EDT [facility] 56- Absolute Lymphocytes 1.61 1.00 - 4.80 K/ul 10/27/2023 2:58 PM EDT [facility] 56- Absolute Monocytes 0.77 0.00 - 1.10 K/uL 10/27/2023 2:58 PM EDT [facility] 56- Absolute Eosinophils 0.27 0.00 - 0.70 K/uL 10/27/2023 2:58 PM EDT [facility] 56- Absolute Basophils 0.03 0.00 - 0.20 K/uL 10/27/2023 2:58 PM EDT [facility] 56- Blood Venipuncture / Unknown 10/27/2023 2:46 PM EDT 10/27/2023 2:46 PM EDT Nanette Dow [facility] LAB BLOOD ORDERABLES [facility] 56 [address] [place] [address] * CBC (10/27/2023 2:46 PM EDT) WBC 10.23 4.00 - 10.80 K/uL 10/27/2023 2:58 PM EDT [facility] 56 RBC 5.00 3.85 - 5.15 M/uL 10/27/2023 2:58 PM EDT [facility] 56 HGB 14.7 12.0 - 15.3 g/dL 10/27/2023 2:58 PM EDT [facility] 56- HCT 43.9 36.0 - 45.2 % 10/27/2023 2:58 PM EDT [facility] 56- MCV 87.8 81.5 - 97.5 fL 10/27/2023 2:58 PM EDT [facility] 56 MCH 29.4 27.0 - 34.0 pg 10/27/2023 2:58 PM EDT [facility] 56 MCHC 33.5 32.0 - 36.0 g/dL 10/27/2023 2:58 PM EDT [facility] 56 RDW 12.9 11.5 - 15.5 % 10/27/2023 2:58 PM EDT [facility] PLT 334 140 - 400 K/uL 10/27/2023 2:58 PM EDT [facility] MPV 10.3 6.6 - 11.1 fL 10/27/2023 2:58 PM EDT [facility] Blood Venipuncture / Unknown 10/27/2023 2:46 PM EDT 10/27/2023 2:46 PM EDT Nanette Dow [facility] LAB BLOOD ORDERABLES [facility] [address] [place] [address] documented in this encounter Visit Diagnoses Diagnosis Multiple sclerosis, relapsing-remitting (HCC) Multiple sclerosis documented in this encounter Advance Directives * Full Code (Latest Code Status on File) Date Activated Date Inactivated Comments 10/13/2020 10:06 AM 10/13/2020 9:06 PM This order reflects the patients wishes and were consensually agreed upon. Question Answer Comments Discussion of Advance Directives occurred with: Not Discussed Care Teams [employer] Relationship Specialty Start Date End Date Mary Lovell DO [address] [place] [address] [place] [address] PCP - General Internal Medicine 01/28/17 documented as of this encounter
--- OUTSIDE RECORDS SUMMARY | 2024-04-07 00:45 | External Medical Summary | Summary of Care ---
Author Name Unknown Organization [facility] Address [address] [place] [address] Phone [phone] Care Team Providers Care Geochemical Manager Name Role Phone Mary Lovell Primary Care Provider Encounter Details Date Type Department Care Team (Late st Contact Info) Description 10/16/2023 Telephone [address]rology [address] [place] [address] Quyen Palma PA-C [address] [place] [address] Allergies No known active allergiesdocumented as of this encounter (statuses as of 10/16/2023) Medications Medication Sig Dispensed Refills Start Date [...] 0.1 % Nasal Solution (Astelin) Administer 1 [place] into nostril in the morning and 1 [place] before bedtime. 30 mL 12 08/22/2023 Active [...] as of this encounter (statuses as of 10/16/2023) Active Problems Problem Noted Date Diagnosed Date Wheezing 04/08/2023 Chronic frontal sinusitis 04/08/2023 Dermoid cyst of right ovary 04/12/2021 Migraine with aura and witho ut status migrainosus, not intractable 08/03/2018 Obesity, Class II, BMI 35-39.9, isolated (see ac tual BMI) 02/07/2017 Multiple sclerosis, relapsing-remitting 02/08/20 17 Vitamin D deficiency 02/03/2017 documented as of this encounter (statuses as of 10/16/2023) Resolved Problems Problem Noted Date Diagnosed Date Resolved Date Food insecurity 02/26/2021 09/26/2022 Overview: Per [facility] Protocol Sudden visual loss of left eye 01/28/2017 02/07/2017 Obesity, pediatric, BMI 95th to 98th percentile for age 0407/07/2014 02/07/2017 Depression 07/07/2014 02/07/2017 Deliberate self-cutting 07/07/201401/16 documented as of this encounter (statuses as of 10/16/2023) Immunizations Name Administration Dates Next Due DTaP [...] encounter Miscellaneous Notes * Telephone Encounter - Quyen Palma PA-C - 10/16/2023 12:10 PM EDT Called patient to discuss MRI results. Had discussed with Dr. Villatoro, CT for thyroglossal duct cyst not indicated at this time, would prefer to hold off as the risk of radiation may outweigh the benefit of imaging this benign finding in this patient. Her MS is stable. Brain atrophy is mild. She does have sphenoid sinus thickening which correlates with her ongoing sinus issues - she is following with ENT. documented in this encounter Plan of Treatment Upcoming Encounters Date Type Department Care Team (Late st Contact Info) Description 10/21/2023 7:30 AM EDT Laboratory Laboratory [address] [place] [phone] [place] [address] 10/24/2023 7:00 AM EDT Pharmacy Neurology [address] [place] [phone] Brittny, Pharmacist Neurology [address] [place] [address] [place] [address] 10/27/2023 2:20 PM EDT [facility] [address] Thelma Villatoro MD [address] [facility] [place] [address] 11/14/2023 10:30 AM EDT Telemedicine Otol[facility]ology [facility] [address] [facility] [place] [address] Mariah Mandel MD [address] [place] [address] 12/09/2023 2:20 PM EDT Office Visit Nutrition & Weight Management, [facility] [address] [place] [address] Na Gutiérrez PA-C [address] [facility] [place] [address] 12/11/2023 2:20 PM EDT Office Visit [facility] [address] [place] [phone] Jalyn Sommer DO [address] [facility] [place] [address] 12/26/2023 9:30 AM EDT Hem/Onc Treatment Hematology/Oncology Treatment, [place] [facility] [phone] 06/29/2024 8:30 AM EDT Office Visit Family Medicine [address] [place] [phone] Mary Lovell [address] [place] [address] Health Maintenance Due Date Last Done Comments [...] Directives occurred with: Not Discussed Care Teams Geochemical Manager Relationship Specialty Start Date End Date Mary Lovell DO [address] [place] [address] [place] [address] PCP - General Internal Medicine 01/28/17 documented as of this encounter
[2024-04-07] MEDS: SODIUM CHLORIDE 0.9% 1,000 ML IV ONE (00:56)
--- NOTE | 2024-04-07 02:19 | History & Physical Report ---
Date of Service April 07, 2024 Assessment & Plan (1) Gall stone pancreatitis: Plan: 23-year-old female with past med history significant for chronic frontal sinusitis, obesity, multiple sclerosis relapsing remitting, migraine with aura, dermoid cyst of right ovary presents with ongoing nausea and vomiting and abdominal pain since last 1 week. Pain is in the upper abdomen radiating across and very severe in nature. Having several episodes of nausea and vomiting. Had a watery bowel movement yesterday morning. Has some chills but no fevers. No chest pain or shortness of breath. No headache. No runny nose or sore throat. No cough. Currently resting comfortably and hemodynamically stable. Gallstone pancreatitis Came with nausea vomiting abdomen pain going for 1 week Lipase 6762 Elevated LFTs Aggressive fluids N.p.o. IV antiemetics. IV pain meds as needed GI consult Elevated LFTs History of cholecystectomy Possible choledocholithiasis Will follow repeat LFTs GI plan for ERCP in a.m. On empiric Zosyn Possible UTI On Zosyn Will follow cultures GERD IV Protonix for now History of multiple sclerosis relapsing remitting On Ocrevus History of migraine On rizatriptan as needed Obesity On Ozempic which will be held DVT prophylaxis SCDs for now Disposition Medical floor Full code. History of Present Illness Chief Complaint: Nausea vomiting and abdominal pain Primary Care Provider: Mary Lovell DO 23-year-old female with past med history significant for chronic frontal sinusitis, obesity, multiple sclerosis relapsing remitting, migraine with aura, dermoid cyst of right ovary presents with ongoing nausea and vomiting and abdominal pain since last 1 week. Pain is in the upper abdomen radiating across and very severe in nature. Having several episodes of nausea and vomiting. Had a watery bowel movement yesterday morning. Has some chills but no fevers. No chest pain or shortness of breath. No headache. No runny nose or sore throat. No cough. Currently resting comfortably and hemodynamically stable. Past medical history. As mentioned above Past surgical history. Dental surgery, EGD with endoscopic ultrasound. Laparoscopic cholecystectomy. Lumbar puncture. Social history. No smoking. Alcohol occasionally. Medical marijuana. Family history. Mother has depression/anxiety Allergies Allergy/AdvReac Type Severity Reaction Status Date / Time No Known Allergies Allergy Verified 04/08/18 17:23 Home Medications Medication Instructions Recorded Confirmed Type albuterol sulfate 90 mcg/actuation 2 puff inhalation Q4H PRN 04/07/24 04/07/24 History aerosol inhaler Shortness Of Breath Or Wheezing ocrelizumab 30 mg/mL intravenous 600 mg IV UD 04/07/24 04/07/24 History solution (Ocrevus) pantoprazole 40 mg tablet,delayed 40 mg PO DAILY 04/07/24 04/07/24 History release rizatriptan 10 mg disintegrating 10 mg PO DIRECTED 04/07/24 04/07/24 History tablet semaglutide 0.25 mg or 0.5 mg (2 0.5 mg subcut WK 04/07/24 04/07/24 History mg/3 mL) subcutaneous pen injector (Ozempic) Past Med/Surg History Problem List (Updated 04/07/24 @ 05:43 by Buster Joseph DO) Pancreatitis Transaminitis Gall stone pancreatitis Multiple sclerosis Left ovarian cyst (Acute) Medical History (Updated 04/07/24 @ 05:43 by Buster Joseph DO) Migraine Multiple sclerosis Surgical History [place] teeth extracted Family History Other Cancer Diabetes Heart disease Hypertension Seizure Social History Smoking Status: Never smoker Hx Alcohol Use: Yes Alcohol type: hard liquor Hx Substance Use: Yes Last Used Substance: Days (ago) Substance Use Type Other:: medical marijuana user Preferred Language: Turkish Communication Ability: Effective 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 ENT- oropharynx clear Neck- supple, no JVD. Lungs- clear to auscultation no wheezing or crackles Heart- regular rate and rhythm; no murmur, no gallop. Abdomen- normal bowel sounds, soft, diffuse mild discomfort, no distension Extremities- no pretibial edema, no erythema seen Neuro- alert, oriented PERRL, no facial palsy; no dysarthria; moves extremities Results & Data Results & Data Vital Signs (Past 12 Hours) Vital Signs Temp Pulse Pulse Resp BP BP Pulse Ox 04/07/24 00:08 62 16 128/76 98 04/06/24 19:59 36.3 C L 76 16 132/82 99 O2 Del Method 04/07/24 00:08 Room Air 04/06/24 19:59 Room Air Diagnostic Findings Laboratory Results WBC 8.14 K/ul (4.8-10.8) 04/06/24 20:10 RBC 4.81 M/uL (4.20-5.40) 04/06/24 20:10 Hgb 14.1 g/dl (12.0-16.0) 04/06/24 20:10 Hct 41.1 % (37.0-47.0) 04/06/24 20:10 MCV 85.4 fL (80.0-100.0) 04/06/24 20:10 MCH 29.3 pg (25.0-34.0) 04/06/24 20:10 MCHC 34.3 g/dL (32.0-36.0) 04/06/24 20:10 RDW Std Deviation 38.8 fL (36.4-46.3) 04/06/24 20:10 RDW Coeff of Sandeep 12.4 % (11.5-14.5) 04/06/24 20:10 Plt Count 327 K/uL (130-400) 04/06/24 20:10 MPV 10.4 fL (9.4-12.4) 04/06/24 20:10 Immature Gran % (Auto) 0.2 % 04/06/24 20:10 Neut % (Auto) 79.6 % 04/06/24 20:10 Lymph % (Auto) 10.6 % 04/06/24 20:10 [place] % (Auto) 8.1 % 04/06/24 20:10 Eos % (Auto) 1.1 % 04/06/24 20:10 Baso % (Auto) 0.4 % 04/06/24 20:10 Neut # (Auto) 6.48 K/uL (1.40-6.50) 04/06/24 20:10 Lymph # (Auto) 0.86 K/uL (1.20-3.40) L 04/06/24 20:10 [place] # (Auto) 0.66 K/uL (0.11-0.59) H 04/06/24 20:10 Eos # (Auto) 0.09 K/uL (0.00-0.50) 04/06/24 20:10 Baso # (Auto) 0.03 K/uL (0.00-0.20) 04/06/24 20:10 Immature Gran # (Auto) 0.02 K/uL (0.01-0.20) 04/06/24 20:10 Sodium 140 mmol/L (136-145) 04/06/24 20:10 Potassium 3.5 mmol/L (3.5-5.1) 04/06/24 20:10 Chloride 107 mmol/L (98-107) 04/06/24 20:10 Carbon Dioxide 28 mmol/L (21-32) 04/06/24 20:10 Anion Gap 5 (3-11) 04/06/24 20:10 BUN 10 mg/dl (6-23) 04/06/24 20:10 Creatinine 0.80 mg/dl (0.6-1.2) 04/06/24 20:10 Est Cr Clr Drug Dosing 132.8 ml/min 04/06/24 20:10 eGFR 104.80 04/06/24 20:10 BUN/Creatinine Ratio 12.5 (10-20) 04/06/24 20:10 Glucose 108 mg/dl (70-99(Fasting)) H 04/06/24 20:10 Calcium 8.7 mg/dl (8.6-10.3) 04/06/24 20:10 Total Bilirubin 5.0 mg/dl (0.2-1.0) H 04/06/24 20:10 AST 485 U/L (13-39) H 04/06/24 20:10 ALT 742 U/L (7-52) H 04/06/24 20:10 Alkaline Phosphatase 288 U/L (34-104) H 04/06/24 20:10 Total Protein 6.5 gm/dl (6.0-8.3) 04/06/24 20:10 Albumin 4.5 gm/dl (3.4-5.0) 04/06/24 20:10 Globulin 2.0 gm/dl (2.5-4.0) L 04/06/24 20:10 Albumin/Globulin Ratio 2.3 (0.9-2) H 04/06/24 20:10 Lipase 6762 U/L (11-82) H 04/06/24 20:10 HCG, Qual Negative (Negative) 04/06/24 20:10 Urine Color Dark Yellow 04/06/24 20:10 Urine Appearance Clear (Clear) 04/06/24 20:10 Urine pH 5.5 (4.5-7.5) 04/06/24 20:10 Ur Specific [place] 1.018 (1.000-1.030) 04/06/24 20:10 Urine Protein Negative (Negative) 04/06/24 20:10 Urine Glucose (UA) Negative (Negative) 04/06/24 20:10 Urine Ketones 1+ (Negative) H 04/06/24 20:10 Urine Blood Negative (Negative) 04/06/24 20:10 Urine Nitrite Negative (Negative) 04/06/24 20:10 Urine Bilirubin 3+ (Negative) H 04/06/24 20:10 Urine Urobilinogen Negative (Negative) 04/06/24 20:10 Ur Leukocyte Esterase 1+ (Negative) H 04/06/24 20:10 Urine WBC (Auto) 11-20 /hpf (0-5) H 04/06/24 20:10 Urine RBC (Auto) 0-2 /hpf (0-2) 04/06/24 20:10 U Hyaline Cast (Auto) 0-2 /lpf (0-2) 04/06/24 20:10 U Epithel Cells (Auto) 3-5 /hpf (0-2) H 04/06/24 20:10 Urine Bacteria (Auto) None Seen (None Seen) 04/06/24 20:10 Impressions Gallbladder Ultrasound 04/06/24 21:39 Exam(s): US GALLBLADDER EXAM: US Abdomen Limited, Gallbladder CLINICAL HISTORY: Reason for exam: ned, jaundiced. TECHNIQUE: Real-time ultrasound of the right upper quadrant with image documentation. COMPARISON: No relevant prior studies available. FINDINGS: Liver: Liver measures 16.4 cm. Gallbladder: Cholecystectomy. Common bile duct: Dilated common bile duct measuring 1.1 cm. Pancreas: Unremarkable as visualized. Right kidney: Unremarkable. Right kidney measures 9.5 cm. No hydronephrosis. Other vasculature: Patent, normally directed portal vein. IMPRESSION: Dilated common bile duct measuring 1.1 cm. This could represent reservoir effect in the setting of cholecystectomy. However, if there is laboratory evidence of biliary obstruction, recommend MRCP. Electronically signed by: Elina Pinto M.D. 04/06/24 23:52 PM Code Status & VTE Plan VTE Prophylaxis Plan VTE Prophylaxis will be ordered: Yes
[2024-04-07] MEDS ORDERED: ALBUTEROL HFA 8 GM INHALER INH PRN (02:45)
[2024-04-07] MEDS ORDERED: RIZATRIPTAN BENZOATE MLT 10 MG TAB PO PRN (02:50)
[2024-04-07] MEDS: SODIUM CHLORIDE 0.9% 1,000 ML IV SCH (03:11)
[2024-04-07] MEDS: HYDROmorphone INJ 0.5 MG/0.5 ML SYR IV PRN ×2 (03:14→23:46)
[2024-04-07] MEDS: PIPERACILLIN/TAZOBACTAM 4.5 GM/100 ML BAG IV SCH (04:09)
--- NOTE | 2024-04-07 05:32 | Surgery Consultation ---
Date of Consultation April 07, 2024 Assessment & Plan (1) Transaminitis: (2) Pancreatitis: Plan 23F with evidence for CBD obstruction. US dilated CBD, lab work with transaminitis and pancreatitis, epigastric pain. HD stable and afebrile. She has already had a cholecystectomy 2 years ago, no surgical preventions necessary as this was already performed and no surgical treatments for this. Other etiologies could include primary CBD stone which is more rare or in this case in particular CBD stricture from her previous surgery. Recommend GI consultation for further input and evaluation. Recommend MRCP to help determine etiology for obstruction. Recommend GI consultation. F/U am labs. Continue with supportive care. NPO while patient is nauseous and still vomiting, IVF Pain control General surgery will sign off at this time. History of Present Illness Attending Physician: Vj Curran MD History of Present Illness 23F with a PMHx of cholecystectomy 2 years ago, wisdom teeth removal, MS on Ocrevus infusions q 6 months p/w evidence for CBD obstruction, transaminitis and pancreatitis. Fidel explains that she started having epigastric abdominal pain roughly 1 week ago described as constant initially and then relieved but would return off and on. Eventually it became constant again this past Friday. This has been a/w N/V, chills and syncopal episodes when this all began 1 week ago as well as this Friday. She was [facility] to [facility] on Friday after a syncopal event and p/w N/V, abdominal pain at which time blood work was performed, COVID and Flu swab, UA and a CT which was reportedly (-). She was treated with fluids, diagnosed with a UTI and discharged home. She continued to have ongoing pain as well as developed heart palpitations and diaphoresis and presented to our ED for further evaluation. In the ED she was afebrile without leukocytosis. T. bili 5, AST 485, ALT 742 and Alk Phos 288, Lipase 6762. An US was performed that revealed a dilated CBD to 1.1cm without mention of choledocholithiasis. She has been admitted to the medical service and a surgical consultation has been requested. Allergies Allergy/AdvReac Type Severity Reaction Status Date / Time No Known Allergies Allergy Verified 04/08/18 17:23 Home Medications Medication Instructions Recorded Confirmed Type albuterol sulfate 90 mcg/actuation 2 puff inhalation Q4H PRN 04/07/24 04/07/24 History aerosol inhaler Shortness Of Breath Or Wheezing ocrelizumab 30 mg/mL intravenous 600 mg IV UD 04/07/24 04/07/24 History solution (Ocrevus) pantoprazole 40 mg tablet,delayed 40 mg PO DAILY 04/07/24 04/07/24 History release rizatriptan 10 mg disintegrating 10 mg PO DIRECTED 04/07/24 04/07/24 History tablet semaglutide 0.25 mg or 0.5 mg (2 0.5 mg subcut WK 04/07/24 04/07/24 History mg/3 mL) subcutaneous pen injector (Ozempic) Patient History Medical History (Updated 04/07/24 @ 05:43 by Buster Joseph DO) Migraine Multiple sclerosis Surgical History [place] teeth extracted Family History Other Cancer Diabetes Heart disease Hypertension Seizure Social History Smoking Status: Never smoker Hx Alcohol Use: Yes Alcohol type: hard liquor Hx Substance Use: Yes Last Used Substance: Days (ago) Substance Use Type Other:: medical marijuana user Preferred Language: Kinyarwanda Communication Ability: Effective 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 Beliefs That Will Affect Care: None marital status: Single Current Living Situation: Alone current occupational status: employed Other Information That Helps Us Care for You: No Feels Safe at Home: Yes Safety Concerns: Feels Safe At This Time Assistive Devices: Glasses Review of Systems Constitutional: + chills, + sweats and + body aches; no fever Respiratory: no cough, no chest congestion, no dyspnea on exertion and no wheezing Cardiovascular: + palpitations, + lightheadedness (when up out of bed) and + syncope; no chest pain Gastrointestinal: + abdominal pain (epigastric to mid), + nausea and + vomiting (previously eaten food) Genitourinary: no dysuria, no difficulty urinating, no hematuria and no vaginal discharge Physical Exam Constitutional: healthy appearing; no acute distress, not ill appearing and not diaphoretic Respiratory: normal respiratory effort; no respiratory distress, no labored breathing and does not use accessory muscles Gastrointestinal (Abdomen): Inspection/Auscultation: abdomen normal to inspection; abdomen not distended Percussion/Palpation: + abdomen tender (diffuse, greatest at the epigastric area) and abdomen soft Psychiatric: Orientation: alert, oriented x 3 and cooperative; not guarded Results & Data Vital Signs (Past 12 Hours) Vital Signs Temp Pulse Pulse Resp BP BP Pulse Ox 04/07/24 02:45 04/07/24 02:36 36.4 C 72 18 112/73 98 04/07/24 02:01 62 18 129/83 04/07/24 00:08 62 16 128/76 98 04/06/24 19:59 36.3 C L 76 16 132/82 99 O2 Del Method 04/07/24 02:45 Room Air 04/07/24 02:36 Room Air 04/07/24 02:01 Room Air 04/07/24 00:08 Room Air 04/06/24 19:59 Room Air PG Care Time/CCT Total # of Minutes Spent Total Time Spent with Patient: Total time spent is greater than 50% in coordination of care (as documented) at patient's floor/unit and/or counseling patient: [place] [address] IN/OBS CONSULT LVL 3,45M Patient Type New Diagnoses Transaminitis R74.01 Pancreatitis K85.90
[2024-04-07 06:11] LABS: Basophils # (auto) 0.03 K/uL (0.00-0.20); Basophils % (auto) 0.3 %; Eosinophils # (auto) 0.01 K/uL (0.00-0.50); Eosinophils % (auto) 0.1 %; Hemoglobin 12.7 g/dl (12.0-16.0); Immature Granulocytes # (auto) 0.02 K/uL (0.01-0.20); Immature Granulocytes % (auto) 0.2 %; Lymphocytes # (auto) 0.82 K/uL (1.20-3.40); Lymphocytes % (auto) 7.8 %; Mean Corpuscular Hemoglobin 28.7 pg (25.0-34.0); Mean Corpuscular Hgb Conc 33.4 g/dL (32.0-36.0); Mean Platelet Volume 10.3 fL (9.4-12.4); Monocytes # (auto) 0.57 K/uL (0.11-0.59); Monocytes % (auto) 5.4 %; Neutrophils # (auto) 9.04 K/uL (1.40-6.50); Neutrophils % (auto) 86.2 %; Platelet Count 271 K/uL (130-400); RDW Coefficient of Variation 12.5 % (11.5-14.5); RDW Standard Deviation 39.3 fL (36.4-46.3); Red Blood Count 4.42 M/uL (4.20-5.40); White Blood Count 10.49 K/ul (4.8-10.8)
[2024-04-07 06:34] LABS: Albumin Level 4.1 gm/dl (3.4-5.0); BUN Creatinine Ratio 12.5 (10-20); Bilirubin,Total 2.1 mg/dl (0.2-1.0); Creatinine Clr Calc Pharmacy 167.6 ml/min; Magnesium 1.9 mg/dl (1.7-2.4); Potassium 3.7 mmol/L (3.5-5.1); Total Protein 5.6 gm/dl (6.0-8.3)
--- NOTE | 2024-04-07 06:55 | Gastrointestinal Consultation ---
Date of Consultation April 07, 2024 Assessment & Plan (1) Gall stone pancreatitis: (2) Transaminitis: Plan 23 year old female with history of MS, s/p CCY w/ one week of epigastric abd pain, nausea/vomiting, LFT elevation and ABD US showing CBD dilation. As her transaminases improved overnight, she may have passed a gallstone. No signs of cholangitis at present time. We discussed the course of gallstone pancreatitis to include mild or severe pancreatitis. Recommend MRCP to rule out biliary stone as she may need ERCP evaluation. 1. Recommend MRCP 2. Maintain NPO status 3. Trend LFTs 4. Continue fluid replacement - LR 200 mL/hr - Assess for adequate hydration w/ 2 pt drop in HGB 5. Trend GENERATION ENGINEER, glucose 6. Antiemetics PRN 7. Analgesia PRN 8. Encouraged OOB to kerri 9. Encouraged early ambulation 10. Continue ABX w/ biliary coverage I spent a total of 60 minutes on the date of service in review of patient's record, and previously obtained information in person and appropriate medical visit, discussion and education of plan, with patient and/or caregiver, placing orders for tests/referral/procedures as medically necessary and documentation of pertinent clinical information in patient's medical records for their visit today. Supervising Physician Co-Signing Physician Notes Jaundice elevated liver function test. Dilated bile duct on admission. Significant elevated lipase and 6000. Mostly [place] criteria negative though she has dropped her hematocrit since admission. BUN is decreased. Her liver function tests are improving. MRCP suggested no retained common duct stones. No pancreatic fluid collections Gallstone pancreatitis. Patient 30% improved. Her abdomen is relatively benign. At this point management is bowel rest for the next 24 hours. IV hydration. Pain control. Anticipate discharge in 24 to 48 hours History of Present Illness Reason for Consultation: gallstone pancreatitis Requesting Physician: gallstone pancreatitis Attending Physician: Vj Currna MD History of Present Illness 23 year old female with history of MS, s/p CCY and others below presenting with abd pain, nausea/vomiting - GI was asked to evaluate for gallstone pancreatitis. Pt notes that her symptoms started about 1 week ago. Abrupt onset epigastric pain which radiates to bilateral upper abd. Associated with nausea/vomiting. No report of black or bloody emesis. Denies change in bowel habits. No black or bloody stools. No fever, chills, CP, SOB. WBC 11 tbili 5 --> 2.1 ast 485 --> 265 alt 742 --> 570 alkp 288-->243 lipase 6762 ABD US 2024:Dilated common bile duct measuring 1.1 cm. This could represent reservoir effect in the setting of cholecystectomy. However, if there is laboratory evidence of biliary obstruction, recommend MRCP CTAP 2024: at [facility], normal per patient but no report of this available to review Allergies Allergy/AdvReac Type Severity Reaction Status Date / Time No Known Allergies Allergy Verified 04/08/18 17:23 Home Medications Medication Instructions Recorded Confirmed Type albuterol sulfate 90 mcg/actuation 2 puff inhalation Q4H PRN 04/07/24 04/07/24 History aerosol inhaler Shortness Of Breath Or Wheezing ocrelizumab 30 mg/mL intravenous 600 mg IV UD 04/07/24 04/07/24 History solution (Ocrevus) pantoprazole 40 mg tablet,delayed 40 mg PO DAILY 04/07/24 04/07/24 History release rizatriptan 10 mg disintegrating 10 mg PO DIRECTED 04/07/24 04/07/24 History tablet semaglutide 0.25 mg or 0.5 mg (2 0.5 mg subcut WK 04/07/24 04/07/24 History mg/3 mL) subcutaneous pen injector (Ozempic) Patient History Medical History (Updated 04/07/24 @ 14:21 by John Brown MD) Migraine Multiple sclerosis Surgical History [place] teeth extracted Family History Other Cancer Diabetes Heart disease Hypertension Seizure Social History Smoking Status: Never smoker Hx Alcohol Use: Yes Alcohol type: hard liquor Hx Substance Use: Yes Last Used Substance: Days (ago) Substance Use Type Other:: medical marijuana user Preferred Language: Tristanian Communication Ability: Effective Gold Blower Required: No Beliefs That Will Affect Care: None marital status: Single Current Living Situation: Alone current occupational status: employed Other Information That Helps Us Care for You: No Feels Safe at Home: Yes Safety Concerns: Feels Safe At This Time Assistive Devices: Glasses Review of Systems Review of Systems: All other findings negative except as noted in HPI. Physical Exam Constitutional: WD/WN, vitals as above Respiratory: normal respiratory effort, lungs clear to auscultation Cardiovascular: Rate/Rhythm: regular rate and regular rhythm Gastrointestinal (Abdomen): Inspection/Auscultation: normal bowel sounds Percussion/Palpation: + abdomen tender and abdomen soft Skin: no rashes, warm and dry Results & Data Vital Signs (Past 12 Hours) Vital Signs Temp Pulse Pulse Resp BP BP Pulse Ox 04/07/24 02:45 04/07/24 02:36 97.6 F 72 18 112/73 98 04/07/24 02:01 62 18 129/83 04/07/24 00:08 62 16 128/76 98 04/06/24 19:59 97.3 F L 76 16 132/82 99 O2 Del Method 04/07/24 02:45 Room Air 04/07/24 02:36 Room Air 04/07/24 02:01 Room Air 04/07/24 00:08 Room Air 04/06/24 19:59 Room Air Laboratory Results 04/07/24 04/06/24 Range/Units 05:34 20:10 WBC 10.49 8.14 (4.8-10.8) K/ul RBC 4.42 4.81 (4.20-5.40) M/uL Hgb 12.7 14.1 (12.0-16.0) g/dl Hct 38.0 41.1 (37.0-47.0) % MCV 86.0 85.4 (80.0-100.0) fL MCH 28.7 29.3 (25.0-34.0) pg MCHC 33.4 34.3 (32.0-36.0) g/dL RDW Std Deviation 39.3 38.8 (36.4-46.3) fL RDW Coeff of Sandeep 12.5 12.4 (11.5-14.5) % Plt Count 271 327 (130-400) K/uL MPV 10.3 10.4 (9.4-12.4) fL Immature Gran % (Auto) 0.2 0.2 % Neut % (Auto) 86.2 79.6 % Lymph % (Auto) 7.8 10.6 % [place] % (Auto) 5.4 8.1 % Eos % (Auto) 0.1 1.1 % Baso % (Auto) 0.3 0.4 % Neut # (Auto) 9.04 H 6.48 (1.40-6.50) K/uL Lymph # (Auto) 0.82 L 0.86 L (1.20-3.40) K/uL [place] # (Auto) 0.57 0.66 H (0.11-0.59) K/uL Eos # (Auto) 0.01 0.09 (0.00-0.50) K/uL Baso # (Auto) 0.03 0.03 (0.00-0.20) K/uL Immature Gran # (Auto) 0.02 0.02 (0.01-0.20) K/uL Sodium 141 140 (136-145) mmol/L Potassium 3.7 3.5 (3.5-5.1) mmol/L Chloride 111 H 107 (98-107) mmol/L Carbon Dioxide 23 28 (21-32) mmol/L Anion Gap 7 5 (3-11) BUN 8 10 (6-23) mg/dl Creatinine 0.64 0.80 (0.6-1.2) mg/dl Est Cr Clr Drug Dosing 167.6 132.8 ml/min eGFR 125.70 104.80 BUN/Creatinine Ratio 12.5 12.5 (10-20) Glucose 99 108 H (70-99(Fasting)) mg/dl Calcium 8.0 L 8.7 (8.6-10.3) mg/dl Magnesium 1.9 (1.7-2.4) mg/dl Total Bilirubin 2.1 H D 5.0 H (0.2-1.0) mg/dl Direct Bilirubin 1.0 H (0-0.2) mg/dl AST 265 H 485 H (13-39) U/L ALT 570 H 742 H (7-52) U/L Alkaline Phosphatase 243 H 288 H (34-104) U/L Total Protein 5.6 L 6.5 (6.0-8.3) gm/dl Albumin 4.1 4.5 (3.4-5.0) gm/dl Globulin 2.0 L (2.5-4.0) gm/dl Albumin/Globulin Ratio 2.3 H (0.9-2) Lipase 6762 H (11-82) U/L HCG, Qual Negative (Negative) Urine Color Dark Yellow Urine Appearance Clear (Clear) Urine pH 5.5 (4.5-7.5) Ur Specific [place] 1.018 (1.000-1.030) Urine Protein Negative (Negative) Urine Glucose (UA) Negative (Negative) Urine Ketones 1+ H (Negative) Urine Blood Negative (Negative) Urine Nitrite Negative (Negative) Urine Bilirubin 3+ H (Negative) Urine Urobilinogen Negative (Negative) Ur Leukocyte Esterase 1+ H (Negative) Urine WBC (Auto) 11-20 H (0-5) /hpf Urine RBC (Auto) 0-2 (0-2) /hpf U Hyaline Cast (Auto) 0-2 (0-2) /lpf U Epithel Cells (Auto) 3-5 H (0-2) /hpf Urine Bacteria (Auto) None Seen (None Seen) PG Care Time/CCT Total # of Minutes Spent Total Time Spent with Patient: Total time spent is greater than 50% in coordination of care (as documented) at patient's floor/unit and/or counseling patient: Coding Level of Care Code 56704 IN/OBS CONSULT LVL 4,60M Diagnoses Gall stone pancreatitis K85.10 Transaminitis R74.01
[2024-04-07] MEDS: PANTOprazole 40 MG/10 ML SYR IV SCH (08:16)
[2024-04-07] MEDS: ONDANSETRON INJ 2 MG/ML 2 ML VIAL IV PRN (08:16)
--- NOTE | 2024-04-07 12:48 | Magnetic Resonance Report ---
MR MRCP CLINICAL HISTORY: s/p ccy, gallstoen panc, elevated lfts TECHNIQUE: Multiplanar multisequence MR images of the abdomen were obtained, as per MRCP protocol. . COMPARISON: Comparison is made to gallbladder ultrasound 04/06/2024 FINDINGS: Lower chest: No acute abnormality Liver: Unremarkable. No focal lesions are seen. Gallbladder and biliary tree: Patient is status post cholecystectomy. Common bile duct measures up to 6 mm with no filling defect seen. Pancreas: Peripancreatic fat stranding is seen without discrete fluid collections. Spleen: Unremarkable. Adrenals: Unremarkable. Kidneys and ureters: Unremarkable. Bowel: Unremarkable. Lymph nodes Retroperitoneal: Unremarkable. Mesenteric: Unremarkable. Peritoneum: Normal Vessels: Unremarkable. Abdominal wall: Unremarkable. Bones: Unremarkable. IMPRESSION: Findings compatible with pancreatitis without acute peripancreatic collections. Status post cholecyst talia with no evidence of obstructive stones in the common bile duct. ACT 112: Negative or not required by law. Electronically signed by: Mahendra Maki M.D. 04/07/2024 12:46 PM
--- NOTE | 2024-04-07 13:59 | Hospitalist Progress Note ---
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 Denied fever. She is being managed for the following: Pancreatitis Transaminitis History of cholecystectomy Patient presenting with abdominal pain radiating to back, associated with nausea, vomiting. Admitting lipase elevated at 6762, USG gallbladder with dilated CBD measuring 1.1 cm [reservoir effect ISO cholecystectomy versus biliary obstruction]. MRCP compatible with pancreatitis without acute peripancreatic collections. No evidence of obstructive stones in the CBD. Likely Ozempic could be the cause of her pancreatitis, will get triglyceride level added to admitting lab If possible, will hold Ozempic upon discharge and recommend patient follow-up with her obesity medicine as an outpatient. Continue with IV fluid, manage pain and nausea. N.p.o., GI on board, continue with antibiotic, appreciate recommendation. LFT trending down Trend LFT in a.m., trend lipase in AM. Possible UTI: Patient with no complaint of pain or burning while passing urine. Urine culture with no growth. UTI ruled out. Other chronic medical conditions: Continue with/resume home meds as when able. GERD: IV Protonix for now, to p.o. PPI once diet resumed. Multiple sclerosis relapsing remitting: On Ocrevus, currently on hold Migraine: On rizatriptan as needed Obesity: On Ozempic, currently on hold. see above. DVT prophylaxis: SCDs Disposition: Medical floor, pending improvement in her abdominal pain and advancement of diet. Full code Admission and Anticipated Discharge Date Admission Date: April 07, 2024 Subjective Patient was seen and examined at bedside. Patient was sitting up in bed, on room air, NAD, resting comfortably. Patient's family members at bedside were also updated on plan of care. Patient reports slight improvement in her nausea, vomiting, abdominal pain. Reports abdominal pain 7.5/10, radiating to back. Reports vomiting x 2 today morning. Patient denies febrile illness or pain or burning while passing urine. Patient denies sore throat or cough or chest pain. Physical Exam Physical Exam: General- Not in distress Head- atraumatic Eyes- PERRL. ENT- oropharynx clear Neck- supple, no JVD. Lungs- clear to auscultation no wheezing or crackles Heart- regular rate and rhythm; no murmur, no gallop. Abdomen- normal bowel sounds, soft, diffuse w/ pronounced epigastric tender, no distension Extremities- no pretibial edema, no erythema seen Neuro- alert, oriented PERRL, no facial palsy; no dysarthria; moves extremities Results & Data Results & Data Vital Signs (Past 12 Hours) Vital Signs Temp Pulse Pulse Resp BP BP Pulse Ox 04/07/24 08:27 36.3 C L 75 16 114/70 97 04/07/24 02:45 04/07/24 02:36 36.4 C 72 18 112/73 98 04/07/24 02:01 62 18 129/83 O2 Del Method 04/07/24 08:27 Room Air 04/07/24 02:45 Room Air 04/07/24 02:36 Room Air 04/07/24 02:01 Room Air
[2024-04-08] MEDS: SODIUM CHLORIDE 0.9% 1,000 ML IV ONE (04:51)
[2024-04-08] MEDS: KETOROLAC TROMETHAMINE 15 MG/ML VIAL IV PRN (08:17)
[2024-04-08 08:57] LABS: Hematocrit (blood only) 36.2 % (37.0-47.0); Mean Corpuscular Hemoglobin 28.8 pg (25.0-34.0); Mean Corpuscular Hgb Conc 33.1 g/dL (32.0-36.0); Mean Platelet Volume 10.3 fL (9.4-12.4); Platelet Count 225 K/uL (130-400); RDW Coefficient of Variation 12.3 % (11.5-14.5); RDW Standard Deviation 39.4 fL (36.4-46.3); Red Blood Count 4.16 M/uL (4.20-5.40); White Blood Count 8.84 K/ul (4.8-10.8)
[2024-04-08 09:21] LABS: Albumin Globulin Ratio 2.2 (0.9-2); Albumin Level 3.7 gm/dl (3.4-5.0); BUN Creatinine Ratio 10.7 (10-20); Bilirubin,Total 1.2 mg/dl (0.2-1.0); Calcium 7.5 mg/dl (8.6-10.3); Chol HDL Ratio 3.4 (0-5); Creatinine Clr Calc Pharmacy 191.5 ml/min; Globulin 1.7 gm/dl (2.5-4.0); Potassium 3.5 mmol/L (3.5-5.1); Total Protein 5.4 gm/dl (6.0-8.3)
[2024-04-08] MEDS: SODIUM CHLORIDE 0.9% 1,000 ML IV SCH (09:51)
--- NOTE | 2024-04-08 10:20 | Gastroenterology Progress Note ---
Date of Service April 08, 2024 Assessment & Plan (1) Gall stone pancreatitis: (2) Transaminitis: Plan 23 year old female with history of MS, s/p CCY w/ one week of epigastric abd pain, nausea/vomiting, LFT elevation and ABD US showing CBD dilation. As her transaminases improved overnight, she may have passed a gallstone. No signs of cholangitis at present time. We discussed the course of gallstone pancreatitis to include mild or severe pancreatitis. MRCP negative, lipase and LFTs continue to improve - suspect she has passed a stone. 1. Clear liquids diet 2. If tolerating clears, may try low fat full liquids 3. Trend LFTs 4. Continue fluid replacement - LR 200 mL/hr - Assess for adequate hydration w/ 2 pt drop in HGB 5. Trend ED MANAGER, glucose 6. Antiemetics PRN 7. Analgesia PRN 8. Encouraged OOB to chair 9. Encouraged early ambulation I spent a total of 45 minutes on the date of service in review of patient's record, and previously obtained information in person and appropriate medical visit, discussion and education of plan, with patient and/or caregiver, placing orders for tests/referral/procedures as medically necessary and documentation of pertinent clinical information in patient's medical records for their visit today. Admission and Anticipated Discharge Date Admission Date: April 07, 2024 Supervising Physician Co-Signing Physician Notes Resolving gallstone pancreatitis. Patient feels reasonably well. Tolerating some p.o. They asked about what role Ozempic may play. Ozempic has been reported to potential cause pancreatitis. This pancreatitis appears to be related to a common duct stone with blip of the liver enzymes and then normalization. Would not of expected that with Ozempic. Whether weight loss from Ozempic increase the risk of stones that subsequent was pancreatitis is certainly plausible though all weight loss can be associated with stone formation including gastric bypass. At this point I recommend it for the next 2 to 3 weeks probably avoid any pancreas irritants including alcohol. Okay for discharge from a GI perspective. Follow-up with primary care physi brit. Return to GI as needed Subjective Pt was seen and evaluated, chart reviewed. Feeling about 40% better. Notes abd pain with movement and positional changes. No further nausea/vomiting. Is hungry. WBC 11 --> 8 tbili 5 --> 2.1 --> 1.2 ast 485 --> 265 --> 52 alt 742 --> 570 --> 326 alkp 288-->243 --> 186 lipase 6762 --> 325 MRCP 2024: Findings compatible with pancreatitis without acute peripancreatic collections. Status post cholecystomy with no evidence of obstructive stones in the common bile duct. Review of Systems Review of Systems: All other findings negative except as noted in HPI. Physical Exam Constitutional: WD/WN, vitals as above Respiratory: normal respiratory effort, lungs clear to auscultation Cardiovascular: Rate/Rhythm: regular rate and regular rhythm Gastrointestinal (Abdomen): Inspection/Auscultation: normal bowel sounds Percussion/Palpation: + abdomen tender and abdomen soft Skin: no rashes, warm and dry Results & Data Results & Data Vital Signs (Past 12 Hours) Vital Signs Temp Pulse Resp BP Pulse Ox O2 Del Method 04/08/24 07:18 97.9 F 86 18 115/70 98 Room Air Laboratory Results 04/08/24 04/07/24 Range/Units 08:19 05:34 WBC 8.84 (4.8-10.8) K/ul RBC 4.16 L (4.20-5.40) M/uL Hgb 12.0 (12.0-16.0) g/dl Hct 36.2 L (37.0-47.0) % MCV 87.0 (80.0-100.0) fL MCH 28.8 (25.0-34.0) pg MCHC 33.1 (32.0-36.0) g/dL RDW Std Deviation 39.4 (36.4-46.3) fL RDW Coeff of Sandeep 12.3 (11.5-14.5) % Plt Count 225 (130-400) K/uL MPV 10.3 (9.4-12.4) fL Sodium 139 (136-145) mmol/L Potassium 3.5 (3.5-5.1) mmol/L Chloride 112 H (98-107) mmol/L Carbon Dioxide 18 L (21-32) mmol/L Anion Gap 9 (3-11) BUN 6 (6-23) mg/dl Creatinine 0.56 L (0.6-1.2) mg/dl Est Cr Clr Drug Dosing 191.5 ml/min eGFR 129.81 BUN/Creatinine Ratio 10.7 (10-20) Glucose 65 L (70-99(Fasting)) mg/dl Calcium 7.5 L (8.6-10.3) mg/dl Total Bilirubin 1.2 H (0.2-1.0) mg/dl AST 52 H (13-39) U/L ALT 326 H (7-52) U/L Alkaline Phosphatase 186 H (34-104) U/L Total Protein 5.4 L (6.0-8.3) gm/dl Albumin 3.7 (3.4-5.0) gm/dl Globulin 1.7 L (2.5-4.0) gm/dl Albumin/Globulin Ratio 2.2 H (0.9-2) Triglycerides 98 56 (0-150) mg/dl Cholesterol 109 (0-200) mg/dl LDL Cholesterol, Calc 57 mg/dl VLDL Cholesterol, Calc 20 (0-30) mg/dl HDL Cholesterol 32 mg/dl Cholesterol/HDL Ratio 3.4 (0-5) Lipase 325 H (11-82) U/L PG Care Time/CCT Total # of Minutes Spent Total Time Spent with Patient: Total time spent is greater than 50% in coordination of care (as documented) at patient's floor/unit and/or counseling patient: Coding Level of Care Code 88825 SUB INP/OBS CARE 2/35MIN Diagnoses Gall stone pancreatitis K85.10 Transaminitis R74.01
--- NOTE | 2024-04-08 16:27 | Hospitalist Progress Note ---
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 Denied fever. She is being managed for the following: Pancreatitis Transaminitis History of cholecystectomy Patient presenting with abdominal pain radiating to back, associated with nausea, vomiting. Admitting lipase elevated at 6762, USG gallbladder with dilated CBD measuring 1.1 cm [reservoir effect ISO cholecystectomy versus biliary obstruction]. MRCP compatible with pancreatitis without acute peripancreatic collections. No evidence of obstructive stones in the CBD. Likely Ozempic could be the cause of her pancreatitis, will get triglyceride level added to admitting lab If possible, will hold Ozempic upon discharge and recommend patient follow-up with her obesity medicine as an outpatient. Continue with IV fluid, manage pain and nausea. GI on board, advance diet as tolerated. LFT trending down, lipase trended down. Trend LFT in AM. Started on clear liquid diet with a plan to advance to low-fat/full liquid diet by evening if no increase in pain. Possible UTI: Patient with no complaint of pain or burning while passing urine. Urine culture with no growth. UTI ruled out. Other chronic medical conditions: Continue with/resume home meds as when able. GERD: IV Protonix for now, to p.o. PPI once diet resumed. Multiple sclerosis relapsing remitting: On Ocrevus, currently on hold Migraine: On rizatriptan as needed Obesity: On Ozempic, currently on hold. see above. DVT prophylaxis: SCDs Disposition: Medical floor, pending improvement in her abdominal pain and advancement of diet. Full code Admission and Anticipated Discharge Date Admission Date: April 07, 2024 Subjective Patient was seen and examined at bedside. Patient was sitting up in chair, on room air, NAD, resting comfortably. Patient reports improvement in her nausea, denies vomiting. Reports improving abdominal pain. Will start her on clear liquid diet, if she tolerates will advance to low- fat/full liquid diet by evening. Continue IV fluid at 125 mL an hour. Patient denies other review of symptoms. Physical Exam Physical Exam: General- Not in distress Head- atraumatic Eyes- PERRL. ENT- oropharynx clear Neck- supple, no JVD. Lungs- clear to auscultation no wheezing or crackles Heart- regular rate and rhythm; no murmur, no gallop. Abdomen- normal bowel sounds, soft, Diffuse tenderness has improved, minimal epigastric tenderness noted, no distension Extremities- no pretibial edema, no erythema seen Neuro- alert, oriented PERRL, no facial palsy; no dysarthria; moves extremities Results & Data Results & Data Vital Signs (Past 12 Hours) Vital Signs Temp Pulse Resp BP Pulse Ox O2 Del Method 04/08/24 15:04 36.2 C L 77 18 121/76 100 Room Air 04/08/24 07:18 36.6 C 86 18 115/70 98 Room Air
[2024-04-09 07:13] VITALS: RESP 18
[2024-04-09 11:11] LABS: Albumin Globulin Ratio 2.1 (0.9-2); Albumin Level 4.2 gm/dl (3.4-5.0); BUN Creatinine Ratio 8.9 (10-20); Bilirubin,Total 0.9 mg/dl (0.2-1.0); Calcium 8.9 mg/dl (8.6-10.3); Creatinine Clr Calc Pharmacy 191.5 ml/min; Potassium 3.1 mmol/L (3.5-5.1); Total Protein 6.2 gm/dl (6.0-8.3)
[2024-04-09 14:55] VITALS: BP 123/76; PULSE 97; TEMP 98.1; O2SAT 99
--- NOTE | 2024-04-09 15:12 | Discharge Summary ---
Date of Service April 09, 2024 Admission HPI Per Admitting Provider 23-year-old female with past med history significant for chronic frontal sinusitis, obesity, multiple sclerosis relapsing remitting, migraine with aura, dermoid cyst of right ovary presents with ongoing nausea and vomiting and abdominal pain since last 1 week. Pain is in the upper abdomen radiating across and very severe in nature. Having several episodes of nausea and vomiting. Had a watery bowel movement yesterday morning. Has some chills but no fevers. No chest pain or shortness of breath. No headache. No runny nose or sore throat. No cough. Currently resting comfortably and hemodynamically stable. Past medical history. As mentioned above Past surgical history. Dental surgery, EGD with endoscopic ultrasound. Laparoscopic cholecystectomy. Lumbar puncture. Social history. No smoking. Alcohol occasionally. Medical marijuana. Family history. Mother has depression/anxiety Admission Exam Per Admitting Provider General- Not in distress Head- atraumatic Eyes- PERRL. ENT- oropharynx clear Neck- supple, no JVD. Lungs- clear to auscultation no wheezing or crackles Heart- regular rate and rhythm; no murmur, no gallop. Abdomen- normal bowel sounds, soft, diffuse mild discomfort, no distension Extremities- no pretibial edema, no erythema seen Neuro- alert, oriented PERRL, no facial palsy; no dysarthria; moves extremities Principal Diagnosis Pancreatitis Transaminitis History of cholecystectomy Possible UTI, ruled out Discharge Exam General- Not in distress Head- atraumatic Eyes- PERRL. ENT- oropharynx clear Neck- supple, no JVD. Lungs- clear to auscultation no wheezing or crackles Heart- regular rate and rhythm; no murmur, no gallop. Abdomen- normal bowel sounds, soft, Diffuse tenderness has resolved, epigastric tenderness has resolved, no distension Extremities- no pretibial edema, no erythema seen Neuro- alert, oriented PERRL, no facial palsy; no dysarthria; moves extremities Discharge Data Allergies Allergy/AdvReac Type Severity Reaction Status Date / Time No Known Allergies Allergy Verified 04/08/18 17:23 Consultations 04/07/24 00:15 ED Decision to Admit Stat 04/07/24 00:57 Consult Gastroenterology Stat Procedures Performed Operation Date: 04/08/24 17:10 <No data on this case meets the specified criteria> Ordered Studies 04/06/24 21:39 US gallbladder Stat 04/07/24 08:52 MR MRCP Routine Hospital Course (1) Gall stone pancreatitis: 23-year-old female with past med history significant for chronic frontal sinusitis, obesity, multiple sclerosis relapsing remitting, migraine with aura, dermoid cyst of right ovary presents with ongoing nausea and vomiting and abdominal pain since 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 Denied fever. She was managed for the following: Pancreatitis Transaminitis History of cholecystectomy Patient presenting with abdominal pain radiating to back, associated with nausea, vomiting. Admitting lipase elevated at 6762, USG gallbladder with dilated CBD measuring 1.1 cm [reservoir effect ISO cholecystectomy versus biliary obstruction]. MRCP compatible with pancreatitis without acute peripancreatic collections. No evidence of obstructive stones in the CBD. GI evaled, likely gallstone pancreatitis, less likely the cause is ozempic. Avoid ozempic/alcohol atleast for next 2-3 weeks. Patient tolerated advancement of diet very well, no increase in abdominal pain after diet, patient's reports resolution of abdominal pain, no epigastric tenderness on exam. LFT trended down, lipase trended down Patient is hemodynamically stable and would like to go home. Patient communicated to maintain soft/low-fat diet for next 7 to 10 days. Possible UTI: Patient with no complaint of pain or burning while passing urine. Urine culture with no growth. UTI ruled out. Other chronic medical conditions: Continue with/resume home meds as when able. GERD: c/w PO PPI. Multiple sclerosis relapsing remitting: On Ocrevus, currently on hold Migraine: On rizatriptan as needed Obesity: On Ozempic, currently on hold. see above. DVT prophylaxis: SCDs Disposition: Medical floor, pending improvement in her abdominal pain and advancement of diet. Full code Patient is being discharged to home with following instructions at the point of discharge: Follow-up with your primary care physician within a week time and likely you will need labs CBC/CMP/magnesium/phosphorus. You were evaluated for pancreatitis while in hospital, continue to maintain low- fat soft diet for next 7 to 10 days before gradually transitioning back to your regular dietary consistency. Hold your Ozempic for next 2 to 3 weeks and avoid any alcohol or smoking for next 2 to 3 weeks. If recurrent abdominal pain, you will benefit from GI evaluation as an outpatient. Coordinate with your PCP office to set up the referral. Take your medications as prescribed. Please make sure that you are able to get your medications today by calling your pharmacy before you leave the hospital so that your treatment continuity is not broken. Home Health Attestation I certify that this patient is under my care and that I, or a physicians commercial lending assistant working with me, had a face to-face encounter that meets the home health [id number] encounter requirements with this patient. The encounter with the patient was in whole, or in part, for the following medical condition, which is the primary reason for home health care (list medical condition): I certify that, based on my findings, the following services are medically necessary home health services: My clinical findings support the need for the above services because: Further, I certify that my clinical findings support that this patient is homebound (i.e. absences from home require considerable and taxing effort and are for medical reasons or confucianist services or infrequently or of short duration when for other reasons) because: Certification for Home Health Services: Based on the above findings, I certify that this patient is confined to the home and needs intermittent care home care, physical therapy and/or speech therapy or continues to need occupational therapy. The patient is under my care, and I have initiated the establishment of the plan of care. This patient will be followed by a physician who will periodically review the plan of care. Total Time Total Time Spent Total Time Spent (In Minutes): 35 Discharge Plan Discharge Items Patient Disposition: Home - Self-Care Reason For Visit: GALL STONE PANCREATITIS Discharge Diagnosis: Pancreatitis Transaminitis History of cholecystectomy Possible UTI, ruled out Condition on Discharge: Fair Activity: Resume your previous activity Non-emergency contact: Primary Care Provider Call non-emergency contact if: you have any medication questions Follow-up/Referrals: Mary Lovell DO [Primary Care Provider] - (Date & Time 04/16/2024 9:00 AM Provider: Mary Contreras MD [facility] ) Diet: Low Fat Diet Texture: Dental soft (bite-sized) Addtl Attending Provider Instructions: Follow-up with your primary care physician within a week time and likely you will need labs CBC/CMP/magnesium/phosphorus. You were evaluated for pancreatitis while in hospital, continue to maintain low- fat soft diet for next 7 to 10 days before gradually transitioning back to your regular dietary consistency. Hold your Ozempic for next 2 to 3 weeks and avoid any alcohol or smoking for next 2 to 3 weeks. If recurrent abdominal pain, you will benefit from GI evaluation as an outpatient. Coordinate with your PCP office to set up the referral. Take your medications as prescribed. Please make sure that you are able to get your medications today by calling your pharmacy before you leave the hospital so that your treatment continuity is not broken. Pending Studies at Discharge: No Stand-Alone Forms: [facility], Smoking Cessation Medications and DC Order Prescriptions: Continued rizatriptan 10 mg Tablet,Disintegrating 10 mg PO DIRECTED Rx Instructions: take 1 tab at onset of headache; if no relief may repeat 1 tab after at least 2 hrs; max = 3 tabs/24 hr pantoprazole 40 mg tablet,delayed release (DR/EC) 40 mg PO DAILY albuterol sulfate 90 mcg/actuation HFA aerosol inhaler 2 puff INHALATION Q4H PRN (Reason: Shortness Of Breath Or Wheezing) Ocrevus 30 mg/mL Solution 600 mg IV UD Rx Instructions: EVERY 6 MONTHS Held Ozempic 0.25 mg or 0.5 mg (2 mg/3 mL) pen injector 0.5 mg SUBCUT WK Hold Instructions: Resume on 05/03/24. Discharge Orders: Discharge Order (Routine); Ordered 04/09/24 Ordered By: Vj Curran Admission Data Admit Date/Time: 04/07/24 01:30 Attending Provider: Vj Curran Admit Provider: Robbie Kelley Primary Care Provider: Mary Lovell Other Providers: Robbie Kelley; Toby Estrada
== END 2024-04-09 16:17 | disposition home or self-care (01) | DRG 440 ==
LOC: ED 19:53 → 3N 04-07 01:30